=== PATIENT | male | born 1950 | race Caucasian/White ===

== ENCOUNTER → 2017-09-17 | Outpatient (CLI) | payer OTHER ==
[~2017-09-17] VITALS: Ht 190.5 cm; Wt 149.8 kg
[2017-09-17 15:12] VITALS: BP 162/75; PULSE 99; Ht 190.5 cm; Wt 149.8 kg
== END | disposition home or self-care (01) ==
LOC: C.NEUR 13:46
PROVIDERS: ATTEND Physician Assistant
DX: G47.33 Obstructive sleep apnea (adult) (pediatric) (principal); K21.9 Gastro-esophageal reflux disease without esophagitis

== ENCOUNTER 2024-04-07 11:00 | Inpatient (IN) ==
--- NOTE | 2024-04-07 11:48 | Emergency Department Note ---
Impression & Plan Cholecystitis, acute, Bacteremia, COVID-19 ED Provider Note NAME: LESLI SORIANO AGE: 73 SEX: M : 1950 ARRIVES VIA: Walk-In INFORMANT: Patient, ED PROVIDER(S): David Patel DO CHIEF COMPLAINT: Bacteremia HPI: The patient is a 73-year-old male who presented to the emergency department because of positive blood cultures. Apparently the patient has been having problems with his gallbladder. His most recent episode of gallbladder pain occurred Thursday. He was seen at [facility]. At that time he had a workup and was able to be sent home. He was called today because his blood cultures were positive but he was told to come to [facility] because they do not have the availability to care for his gallbladder issue at [place]. The patient has been having problems with his gallbladder but they are not able to do any surgical management because of the patient's cardiac history. He does take blood thinners. At this time he denies having any chest pain or difficulty breathing. He denies having any abdominal pain or vomiting. ROS: See above HPI for pertinent positives & negatives. A total of 10 systems reviewed and were otherwise negative. PAST MEDICAL HISTORY: See Below PAST SURGICAL HISTORY: See Below FAMILY HISTORY: See Below SOCIAL HISTORY: See Below HOME MEDICATIONS: See Below ALLERGIES: See Below VITALS: See Below PHYSICAL EXAMINATION: GENERAL: Patient is awake alert in no acute distress patient is resting comfortably and showing no signs of anxiety EYES: The conjunctivae are clear. The pupils are round and reactive. EARS, NOSE, MOUTH AND THROAT: The nose is without any evidence of any deformity. NECK: The neck is nontender and supple. RESPIRATORY: Normal respiratory effort is noted there is no evidence of wheezing rhonchi or rales CARDIOVASCULAR: Regular rate and rhythm was noted to auscultation. Systolic murmur was suggested to auscultation. GASTROINTESTINAL: The abdomen is soft. Abdomen is nontender. PELVIS: The Pelvis is stable. No tenderness to palpation is noted. BACK: No midline tenderness or or step-off noted range of motion in flexion extension as well as rotation no signs of muscle spasm noted MUSCULOSKELETAL/EXTREMITIES: There is no evidence of gross deformity full range of motion is noted in the hips and shoulders. SKIN: There is no obvious evidence of any rash. There are no petechiae, pallor or cyanosis noted. NEUROLOGIC: Patient is awake alert and oriented x3 MEDICAL DECISION MAKING: The patient is a 73-year-old male who presented to the emergency department for evaluation of bacteremia. The patient has had gallbladder problems over the course of the last several weeks. He was seen at an outside emergency department. They had no surgical capabilities. The patient signed out AMA and went home but he was called today and told to come to our emergency department because we have surgical capabilities and he was found to be bacteremic on his workup yesterday. There was concern that this could be from his gallbladder. The blood cultures from his previous ER visit at the outside facility were reviewed. It appears to be consistent with E. coli. He did have a CT of the abdomen and pelvis which showed signs of possible cholecystitis. I discussed the patient's laboratory and radiographic studies with him. I discussed his condition with the on-call general surgeon [facility] have agreed to evaluate the patient in the emergency department for further management and disposition. He was treated with IV fluids and IV antibiotics. Triage Nursing notes reviewed. Prior medical records reviewed Vital Signs: reviewed and remarkable for no significant abnormalities Differential diagnosis: Viral syndrome, otitis, pharyngitis, pneumonia, influenza, meningitis, urinary tract infection, sepsis, bacteremia, as well as other pathologies. ER treatment provided: See below Diagnostics interpreted by me: ECG: EKG was obtained in the emergency department. My interpretation is sinus bradycardia at 49 bpm. There is no ectopy. LVH was suggested by voltage criteria. No previous tracing was available Cardiac Monitoring: An order was placed for continuous cardiac monitoring. The monitor shows a rate of 56 bpm with sinus rhythm. Laboratory studies: As stated above and show below. Imaging studies: See below. Radiographic imaging was reviewed by myself Consultation(s): I discussed this case with Dr. Clement who is on-call for general surgery. I discussed this case with Dr. Lindsay who [facility] ED COURSE: Procedures: none Critical Care: I have personally spent greater than 35 minutes of critical care time in the direct management of this patient. This includes bedside care, interpretation of diagnostic studies, and testing, discussion with consultants, patient, and family members, and other required patient management activities. This 35 minutes is in excess of all separately billable procedures. Past Med/Surg History Problem List (Updated 04/07/24 @ 13:49 by Mark Esteves MD) CKD (chronic kidney disease) CAD (coronary artery disease) COVID-19 (Acute) Bacteremia (Acute) Cholecystitis, acute (Acute) Hypertension Aortic valve disorder Mitral valve disorder Diverticula of colon GERD (gastroesophageal reflux disease) Sleep apnea Drug-induced hypersensitivity reaction Nocturnal hypoxemia Acute kidney injury Hypothyroidism Atrial fibrillation Severe obstructive sleep apnea Chronic gastroesophageal reflux disease Acquired deviated nasal septum (Acute) Obesity (Acute) Medical History (Updated 04/07/24 @ 13:49 by Mark Esteves MD) Peripheral neuropathy Restless leg syndrome Diverticulosis Urethral stricture Herpes zoster Sternal fracture Surgical History Hx of tricuspid valve repair (~2019) Hx of mitral valve repair (~2019) Hx of aortic valve replacement (~2019) History of colonoscopy Family History Other Cancer Social History Smoking Status: Current some day smoker Tobacco Type: Pipe Hx Alcohol Use: Yes marital status: Current Living Situation: Spouse current occupational status: retired Feels Safe at Home: Yes Allergies Allergies Allergy/AdvReac Type Severity Reaction Status Date / Time Penicillins Allergy unk Verified 04/07/24 13:19 Anesthesia AdvReac coma Uncoded 04/07/24 13:20 Home Meds Home Medications Medication Instructions Recorded Confirmed Zinc Tab 1 tab PO DAILY 04/07/24 04/07/24 amiodarone 200 mg tablet 200 mg PO 3XWK 04/07/24 04/07/24 apixaban 5 mg tablet (Eliquis) 5 mg PO BID 04/07/24 04/07/24 ascorbic acid (vitamin C) 1,000 mg 1 g PO DAILY 04/07/24 04/07/24 tablet (Vitamin C) aspirin 81 mg tablet,delayed 81 mg PO QPM 04/07/24 04/07/24 release cholecalciferol (vitamin D3) 50 100 mcg PO DAILY 04/07/24 04/07/24 mcg (2,000 unit) capsule (Vitamin D3) ferrous sulfate 324 mg (65 mg 0 mg PO 2XWK 04/07/24 04/07/24 iron) tablet,delayed release metoprolol tartrate 25 mg tablet 25 mg PO BID 04/07/24 04/07/24 multivitamin 1 tab PO DAILY 04/07/24 04/07/24 Results & Data (ED) Vital Signs Vital Signs - 24 hr 04/07/24 11:11 04/07/24 11:31 04/07/24 11:42 Temperature 36.5 C Temperature Source Temporal Artery Scan Pulse Rate 49 L 50 L 49 L Pulse Rate [Left Apical] Respiratory Rate 18 20 Respiratory Effort / Characteristics Non-Labored Spontaneous Respiratory Depth Normal Respiratory Pattern Blood Pressure 104/52 L Blood Pressure [Right Arm] Blood Pressure Mean 69 Blood Pressure Mean [Right Arm] Blood Pressure Position Sitting Pulse Oximetry 97 98 Oxygen Delivery Method Room Air Room Air Sepsis Recent Fever Within 48 Hours No Sepsis New/Unexplained Change in Mental Status N/A Sepsis Action Taken by Nursing No Action Required 04/07/24 11:43 04/07/24 12:00 04/07/24 12:03 Temperature Temperature Source Pulse Rate 50 L Pulse Rate [Left Apical] 49 L Respiratory Rate 18 17 Respiratory Effort / Characteristics Non-Labored Spontaneous Respiratory Depth Normal Respiratory Pattern Regular Blood Pressure 115/58 L Blood Pressure [Right Arm] 117/58 L Blood Pressure Mean 86 Blood Pressure Mean [Right Arm] 77 Blood Pressure Position Pulse Oximetry 98 99 Oxygen Delivery Method Room Air Room Air Sepsis Recent Fever Within 48 Hours Sepsis New/Unexplained Change in Mental Status Sepsis Action Taken by Nursing 04/07/24 13:18 04/07/24 13:21 04/07/24 13:24 Temperature Temperature Source Pulse Rate 59 L 56 L Pulse Rate [Left Apical] Respiratory Rate 16 19 Respiratory Effort / Characteristics Respiratory Depth Respiratory Pattern Blood Pressure 137/72 Blood Pressure [Right Arm] Blood Pressure Mean 87 Blood Pressure Mean [Right Arm] Blood Pressure Position Pulse Oximetry 98 Oxygen Delivery Method Room Air Sepsis Recent Fever Within 48 Hours Sepsis New/Unexplained Change in Mental Status Sepsis Action Taken by Nursing 04/07/24 14:00 04/07/24 14:00 04/07/24 14:12 Temperature Temperature Source Pulse Rate 54 L 55 L Pulse Rate [Left Apical] Respiratory Rate 16 12 Respiratory Effort / Characteristics Respiratory Depth Respiratory Pattern Blood Pressure 143/85 H Blood Pressure [Right Arm] Blood Pressure Mean 107 Blood Pressure Mean [Right Arm] Blood Pressure Position Pulse Oximetry Oxygen Delivery Method Sepsis Recent Fever Within 48 Hours Sepsis New/Unexplained Change in Mental Status Sepsis Action Taken by Nursing 04/07/24 14:21 04/07/24 14:30 04/07/24 14:33 Temperature Temperature Source Pulse Rate 61 54 L Pulse Rate [Left Apical] Respiratory Rate 23 18 Respiratory Effort / Characteristics Respiratory Depth Respiratory Pattern Blood Pressure 148/70 H Blood Pressure [Right Arm] Blood Pressure Mean 101 Blood Pressure Mean [Right Arm] Blood Pressure Position Pulse Oximetry Oxygen Delivery Method Sepsis Recent Fever Within 48 Hours Sepsis New/Unexplained Change in Mental Status Sepsis Action Taken by Nursing 04/07/24 14:45 04/07/24 14:54 04/07/24 15:00 Temperature Temperature Source Pulse Rate 54 L 55 L Pulse Rate [Left Apical] Respiratory Rate 13 14 Respiratory Effort / Characteristics Respiratory Depth Respiratory Pattern Blood Pressure 140/72 Blood Pressure [Right Arm] Blood Pressure Mean 106 Blood Pressure Mean [Right Arm] Blood Pressure Position Pulse Oximetry Oxygen Delivery Method Sepsis Recent Fever Within 48 Hours Sepsis New/Unexplained Change in Mental Status Sepsis Action Taken by Nursing 04/07/24 15:03 Temperature Temperature Source Pulse Rate 56 L Pulse Rate [Left Apical] Respiratory Rate 18 Respiratory Effort / Characteristics Respiratory Depth Respiratory Pattern Blood Pressure Blood Pressure [Right Arm] Blood Pressure Mean Blood Pressure Mean [Right Arm] Blood Pressure Position Pulse Oximetry Oxygen Delivery Method Sepsis Recent Fever Within 48 Hours Sepsis New/Unexplained Change in Mental Status Sepsis Action Taken by Retirement Medications Current Medication List: was personally reviewed by me Laboratory Data Attestation: I reviewed the patient's lab results. 04/07/24 11:36 04/07/24 11:36 Lab Results 04/07/24 04/07/24 04/07/24 Range/Units 11:36 11:42 12:29 WBC 11.47 H (4.8-10.8) K/ul RBC 4.29 L (4.70-6.10) M/uL Hgb 13.3 L (14.0-18.0) g/dl Hct 40.0 L (42.0-52.0) % MCV 93.2 (80.0-100.0) fL MCH 31.0 (25.0-34.0) pg MCHC 33.3 (32.0-36.0) g/dL RDW Std Deviation 47.7 H (36.4-46.3) fL RDW Coeff of Kaylie 14.0 (11.5-14.5) % Plt Count 143 (130-400) K/uL MPV 10.0 (9.4-12.4) fL Immature Gran % (Auto) 0.6 % Neut % (Auto) 74.9 % Lymph % (Auto) 8.3 % [place] % (Auto) 15.8 % Eos % (Auto) 0.1 % Baso % (Auto) 0.3 % Neut # (Auto) 8.59 H (1.40-6.50) K/uL Lymph # (Auto) 0.95 L (1.20-3.40) K/uL [place] # (Auto) 1.81 H (0.11-0.59) K/uL Eos # (Auto) 0.01 (0.00-0.50) K/uL Baso # (Auto) 0.04 (0.00-0.20) K/uL Immature Gran # (Auto) 0.07 (0.01-0.20) K/uL PT 13.4 H (9.0-12.0) Seconds INR 1.3 H (0.9-1.1) APTT 36 H (21-31) Seconds PTT Ratio 1.3 Sodium 132 L (136-145) mmol/L Potassium 3.9 (3.5-5.1) mmol/L Chloride 101 (98-107) mmol/L Carbon Dioxide 26 (21-32) mmol/L Anion Gap 5 (3-11) BUN 23 (6-23) mg/dl Creatinine 1.28 (0.6-1.4) mg/dl Est Cr Clr Drug Dosing 67.9 ml/min Est GFR ( Amer) 64.4 ml/min Est GFR (Non-Af Amer) 55.5 ml/min BUN/Creatinine Ratio 18.0 (10-20) Glucose 95 (70-99(Fasting)) mg/dl Lactate 1.0 (0.4-2.0) mmol/L Calcium 8.8 (8.6-10.3) mg/dl Magnesium 1.9 (1.7-2.4) mg/dl Total Bilirubin 1.0 (0.2-1.0) mg/dl Direct Bilirubin 0.3 H (0-0.2) mg/dl AST 34 (13-39) U/L ALT 34 (7-52) U/L Alkaline Phosphatase 108 H (34-104) U/L Troponin I High Sens 40.5 H (0-20) pg/ml Total Protein 6.0 (6.0-8.3) gm/dl Albumin 3.8 (3.4-5.0) gm/dl Procalcitonin 6.34 H (0-0.5) ng/ml Urine Color Dark Yellow Urine Appearance Clear (Clear) Urine pH 5.5 (4.5-7.5) Ur Specific [place] 1.019 (1.000-1.030) Urine Protein Negative (Negative) Urine Glucose (UA) Negative (Negative) Urine Ketones Trace H (Negative) Urine Blood Negative (Negative) Urine Nitrite Negative (Negative) Urine Bilirubin Negative (Negative) Urine Urobilinogen Negative (Negative) Ur Leukocyte Esterase Negative (Negative) SARS-CoV-2 (PCR) POSITIVE (Negative) Influenza Type A (PCR) Negative (Neg) Influenza Type B (PCR) Negative (Neg) RSV (RT-PCR) Negative (Neg) 04/07/24 Range/Units 13:34 WBC (4.8-10.8) K/ul RBC (4.70-6.10) M/uL Hgb (14.0-18.0) g/dl Hct (42.0-52.0) % MCV (80.0-100.0) fL MCH (25.0-34.0) pg MCHC (32.0-36.0) g/dL RDW Std Deviation (36.4-46.3) fL RDW Coeff of Kaylie (11.5-14.5) % Plt Count (130-400) K/uL MPV (9.4-12.4) fL Immature Gran % (Auto) % Neut % (Auto) % Lymph % (Auto) % [place] % (Auto) % Eos % (Auto) % Baso % (Auto) % Neut # (Auto) (1.40-6.50) K/uL Lymph # (Auto) (1.20-3.40) K/uL [place] # (Auto) (0.11-0.59) K/uL Eos # (Auto) (0.00-0.50) K/uL Baso # (Auto) (0.00-0.20) K/uL Immature Gran # (Auto) (0.01-0.20) K/uL PT (9.0-12.0) Seconds INR (0.9-1.1) APTT (21-31) Seconds PTT Ratio Sodium (136-145) mmol/L Potassium (3.5-5.1) mmol/L Chloride (98-107) mmol/L Carbon Dioxide (21-32) mmol/L Anion Gap (3-11) BUN (6-23) mg/dl Creatinine (0.6-1.4) mg/dl Est Cr Clr Drug Dosing ml/min Est GFR ( Amer) ml/min Est GFR (Non-Af Amer) ml/min BUN/Creatinine Ratio (10-20) Glucose (70-99(Fasting)) mg/dl Lactate (0.4-2.0) mmol/L Calcium (8.6-10.3) mg/dl Magnesium (1.7-2.4) mg/dl Total Bilirubin (0.2-1.0) mg/dl Direct Bilirubin (0-0.2) mg/dl AST (13-39) U/L ALT (7-52) U/L Alkaline Phosphatase (34-104) U/L Troponin I High Sens 34.0 H (0-20) pg/ml Total Protein (6.0-8.3) gm/dl Albumin (3.4-5.0) gm/dl Procalcitonin (0-0.5) ng/ml Urine Color Urine Appearance (Clear) Urine pH (4.5-7.5) Ur Specific [place] (1.000-1.030) Urine Protein (Negative) Urine Glucose (UA) (Negative) Urine Ketones (Negative) Urine Blood (Negative) Urine Nitrite (Negative) Urine Bilirubin (Negative) Urine Urobilinogen (Negative) Ur Leukocyte Esterase (Negative) SARS-CoV-2 (PCR) (Negative) Influenza Type A (PCR) (Neg) Influenza Type B (PCR) (Neg) RSV (RT-PCR) (Neg) Administered Medications Discontinued Medications Sodium Chloride (Nss) 1,000 mls @ 999 mls/hr IV .Q1H1M ONE Stop: 04/07/24 12:29 Last Infusion: 04/07/24 12:37 Dose: Infused Documented By: [facility] Admin: 04/07/24 11:56 Dose: 999 mls/hr Documented By: [facility] Cefepime HCl 2,000 mg/ Syringe 20 mls @ 5 mls/min IV NOW STA; Protocol Stop: 04/07/24 13:22 Last Admin: 04/07/24 13:36 Dose: 5 mls/min Documented By: [facility] Sodium Chloride (Nss) 1,000 mls @ 999 mls/hr IV .Q1H1M ONE Stop: 04/07/24 14:31 Last Admin: 04/07/24 13:37 Dose: 999 mls/hr Documented By: [facility] Imaging Data Attestation: I personally reviewed and interpreted this imaging study as follows: My Impression: 1 view chest x-ray was obtained in the emergency department. My interpretation is no free air or definite infiltrate, final report below Radiologist's Impression: Chest X-Ray 04/07/24 11:29 XR chest 1V portable CLINICAL HISTORY: Sepsis TECHNIQUE: Single frontal radiograph of the chest was obtained. Comparison: None available at the time of this dictation. FINDINGS: Median sternotomy wires are unchanged. The cardiomediastinal silhouette is normal. The lungs are clear. No evidence of pleural effusion or pneumothorax. IMPRESSION: No acute abnormalities and in particular no radiographic evidence of pneumonia. ACT 112: Negative or not required by law. Electronically signed by: Noel Hickey M.D. 04/07/2024 1:20 PM Gallbladder Ultrasound 04/07/24 11:29 US gallbladder CLINICAL HISTORY: pain TECHNIQUE: Multiple real-time sonographic images of the right upper quadrant were obtained. Comparison: None available at the time of this dictation. FINDINGS: The liver is diffusely homogenous with normal contour and echogenicity. No focal mass lesions are seen. No intrahepatic ductal dilatation is seen. Gallbladder sludge versus stones are seen. The gallbladder wall is edematous measuring 1.1 cm. A sonographic Mattson's sign was not elicited by the client renewal specialist. The common duct measures 0.7 cm in diameter at the level of the hepatic artery. The visualized portions of the pancreas appear normal. The right kidney shows normal echogenicity, cortical thickness and renal contour. The right kidney shows no evidence of hydronephrosis. A cyst is in the lower pole measuring 5 mm. No ascites or free fluid is seen in Guadalupe's pouch. IMPRESSION: Gallbladder edema is seen with a negative Mattson's sign. Correlation with patient's pain medication history is recommended. ACT 112: Negative or not required by law. Electronically signed by: Noel Hickey M.D. 04/07/2024 1:20 PM KUB X-Ray 04/07/24 11:29 XR KUB/Abdomen 1 view CLINICAL HISTORY: pain TECHNIQUE: 1 view of the abdomen was obtained. Comparison: None available at the time of this dictation. FINDINGS: Lung bases are unremarkable. Degenerative changes are seen in the visualized skeleton. The bowel gas pattern is nonobstructive. Small stool burden is seen. IMPRESSION: Nonobstructive bowel gas pattern. ACT 112: Negative or not required by law. Electronically signed by: Noel Hickey M.D. 04/07/2024 1:26 PM Discharge Plan Visit Data Chief Complaint: Referred by Doctor Stated Complaint: GALLBLADDER ISSUES, COVID+ , POSITIVE BLOOD CX ED Provider: David Patel Discharge Problem: Cholecystitis, acute, Bacteremia, COVID-19 Forms Stand Alone Forms: [facility] [employer] Prescriptions Prescriptions: No Action multivitamin Tablet 1 tab PO DAILY ascorbic acid (vitamin C) [Vitamin C] 1,000 mg Tablet 1 g PO DAILY amiodarone 200 mg tablet 200 mg PO 3XWK Rx Instructions: Take mon, wed, fri aspirin [Aspir-Low] 81 mg Tablet,Delayed Release (Dr/Ec) 81 mg PO QPM metoprolol tartrate 25 mg tablet 25 mg PO BID ferrous sulfate 324 mg (65 mg iron) Tablet,Delayed Release (Dr/Ec) 0 mg PO 2XWK Rx Instructions: Take wed, thu cholecalciferol (vitamin D3) [Vitamin D3] 50 mcg (2,000 unit) Capsule 100 mcg PO DAILY Eliquis 5 mg tablet 5 mg PO BID Zinc Tab 1 tab PO DAILY Referrals Referrals: Bruce Herrera DO [Primary Care Provider] -
[2024-04-07] MEDS: SODIUM CHLORIDE 0.9% 1,000 ML IV ONE ×2 (11:56→13:37)
[2024-04-07 12:14] LABS: Basophils # (auto) 0.04 K/uL (0.00-0.20); Basophils % (auto) 0.3 %; Eosinophils # (auto) 0.01 K/uL (0.00-0.50); Eosinophils % (auto) 0.1 %; Hemoglobin 13.3 g/dl (14.0-18.0); Immature Granulocytes # (auto) 0.07 K/uL (0.01-0.20); Immature Granulocytes % (auto) 0.6 %; Lymphocytes # (auto) 0.95 K/uL (1.20-3.40); Lymphocytes % (auto) 8.3 %; Mean Corpuscular Hgb Conc 33.3 g/dL (32.0-36.0); Mean Corpuscular Volume 93.2 fL (80.0-100.0); Monocytes # (auto) 1.81 K/uL (0.11-0.59); Monocytes % (auto) 15.8 %; Neutrophils # (auto) 8.59 K/uL (1.40-6.50); Neutrophils % (auto) 74.9 %; Platelet Count 143 K/uL (130-400); RDW Standard Deviation 47.7 fL (36.4-46.3); Red Blood Count 4.29 M/uL (4.70-6.10); White Blood Count 11.47 K/ul (4.8-10.8)
[2024-04-07 12:47] LABS: Albumin Level 3.8 gm/dl (3.4-5.0); Bilirubin Direct 0.3 mg/dl (0-0.2); Calcium 8.8 mg/dl (8.6-10.3); Creatinine Clr Calc Pharmacy 67.9 ml/min; Est GFR (African American) 64.4 ml/min; Est GFR (Non-African American) 55.5 ml/min; Magnesium 1.9 mg/dl (1.7-2.4); Potassium 3.9 mmol/L (3.5-5.1)
[2024-04-07 12:50] LABS: Appearance Urine Clear (Clear); Bilirubin Urine Negative (Negative); Blood Urine Negative (Negative); Color Urine Dark Yellow; Glucose Urine UA Negative (Negative); Ketones Urine Trace (Negative); Leukocyte Esterase Urine Negative (Negative); Nitrite Urine Negative (Negative); Protein Urine Negative (Negative); Specific Gravity Urine 1.019 (1.000-1.030); Urobilinogen Urine Negative (Negative); pH Urine 5.5 (4.5-7.5)
[2024-04-07 12:54] LABS: Troponin I High Sensitivity 40.5 pg/ml (0-20)
[2024-04-07 12:59] LABS: INR 1.3 (0.9-1.1); Partial Thromboplastin Ratio 1.3; Partial Thromboplastin Time 36 Seconds (21-31); Prothrombin Time 13.4 Seconds (9.0-12.0)
[2024-04-07 13:02] LABS: Influenza A virus by PCR Negative (Neg); Influenza B virus by PCR Negative (Neg); RSV by PCR Negative (Neg); SARS CoV2 RNA(COVID-19) Ceph POSITIVE (Negative)
--- NOTE | 2024-04-07 13:22 | XRay Report ---
XR chest 1V portable CLINICAL HISTORY: Sepsis TECHNIQUE: Single frontal radiograph of the chest was obtained. Comparison: None available at the time of this dictation. FINDINGS: Median sternotomy wires are unchanged. The cardiomediastinal silhouette is normal. The lungs are guillermina r. No evidence of pleural effusion or pneumothorax. IMPRESSION: No acute abnormalities and in particular no radiographic evidence of pneumonia. ACT 112: Negative or not required by law. Electronically signed by: Noel Hickey M.D. 04/07/2024 1:20 PM
--- NOTE | 2024-04-07 13:22 | Ultrasound Report ---
US gallbladder CLINICAL HISTORY: pain TECHNIQUE: Multiple real-time sonographic images of the right upper quadrant were obtained. Comparison: None available at the time of this dictation. FINDINGS: The liver is diffusely homogenous with normal contour and echogenicity. No focal mass lesions are see n. No intrahepatic ductal dilatation is seen. Gallbladder sludge versus stones are seen. The gall bladder wall is edematous measuring 1.1 cm. A sonographic Mattson's sign was not elicited by the sonog rapher. The common duct measures 0.7 cm in diameter at the level of the hepatic artery. The visuali zed portions of the pancreas appear normal. The right kidney shows normal echogenicity, cortical thickness and renal contour. The right kidney sh ows no evidence of hydronephrosis. A cyst is in the lower pole measuring 5 mm. No ascites or free fluid is seen in Guadalupe's pouch. IMPRESSION: Gallbladder edema is seen with a negative Mattson's sign. Correlation with patient's pain medication h istory is recommended. ACT 112: Negative or not required by law. Electronically signed by: Noel Hickey M.D. 04/07/2024 1:20 PM
--- NOTE | 2024-04-07 13:29 | XRay Report ---
XR KUB/Abdomen 1 view CLINICAL HISTORY: pain TECHNIQUE: 1 view of the abdomen was obtained. Comparison: None available at the time of this dictation. FINDINGS: Lung bases are unremarkable. Degenerative changes are seen in the visualized skeleton. The bowel gas pattern is nonobstructive. Small stool burden is seen. IMPRESSION: Nonobstructive bowel gas pattern. ACT 112: Negative or not required by law. Electronically signed by: Noel Hickey M.D. 04/07/2024 1:26 PM
[2024-04-07] MEDS: CEFEPIME 2,000 MG in SYRINGE 0 ML IV STA (13:36)
--- NOTE | 2024-04-07 13:47 | History & Physical Report ---
Date of Service April 07, 2024 Assessment & Plan (1) Cholecystitis, acute: Plan: ? Cholecystitis with bacteremia US-Gallbladder: Bladder edema present with negative Mattson sign Has been seen as outpatient several times for suspected cholecystitis, last seen by [facility] 02/22/2024 and follow-up HIDA was recommended. Surgery was not performed due to history of anesthesia reaction and risk at that time Was seen at [facility] for right upper quadrant pain. Was discharged home, subsequent blood cultures were positive and was recommended to come to [facility] where he was pending surgical consultation several weeks for further care as to high surgical risk for [facility] due to his history of anesthesia reaction Patient reports he has not been on any antibiotics in the previous few weeks, received a dose of cefepime at [facility] but otherwise has not been on antibiotics KUB unobstructed CTA/P from 04/06/2024 at [facility] reviewed: Cholelithiasis with moderate gallbladder distention. OSH 3/4 blood cultures positive for gram-negative rods. While at OSH lactate went from 2.63.6, patient did leave A and general surgery was not available at that facility for consultation. He received cefepime/Flagyl/vancomycin while in the ER at that time. HIDA scan 03/23 showed biliary dyskinesia with EF of 12%. Anaerobic bottles subsequently speciated for E. coli with sensitivities and remaining bottle speciations pending Lactic acid on ER arrival 1.0 -PCT elevated 6.34 Surgery consulted. Anesthesia notified of history of reaction as detailed below Continued on cefepime Flagyl N.p.o. IV FM LR 120 cc/h. No history of heart failure, no evidence of volume overload on admission Eliquis A-fib stroke prophylaxis held, transition to heparin while pending surgical eval. Hold 6hrs prior to any procedures. (2) COVID-19: Plan: COVID-positive COVID PCR positive Chest x-ray negative No hypoxia Remdesivir, steroids not indicated Symptomatic management, COVID isolation precautions CRP added and trended (3) Drug-induced hypersensitivity reaction: Plan: History of anesthetic reaction Patient with hypotensive episode not responsive to norepinephrine followed by development of erythema to the arm/chest/face after infusion of Versed, fentanyl, lidocaine, propofol, rocuronium, and isoflurane. Patient had been ordered vancomycin but this had not yet been infused at the time. He was treated with epinephrine, vasopressin, hydrocortisone, Benadryl, Pepcid with subsequent improvement over 10-20 minutes, tryptase level drawn at the time was elevated at 13.9. Followed up with allergy 07/2023. Skin testing to rocuronium/lidocaine/propofol/fentanyl/Versed were negative. No culprit drug was identified. Was recommended to select alternative anesthetic agents to what he had received during his surgery. Cisatracurium with lowest cross-reactivity and recommended for use over rocuronium if possible. No clear good alternative for other medications, 10% challenge dose followed by full dose in OR if could be performed. Lidocaine allergy ruled out, okay to use local anesthetics as needed. -Unclear from history what other medications patient was receiving at the time or that may have triggered his allergic reaction. (4) Atrial fibrillation: Plan: Paroxysmal A-fib On amiodarone, Eliquis, metoprolol Eliquis held, transition to heparin perioperatively for prophylaxis when next dose of Eliquis would have been due at 9 PM EKG: Reported as junctional however very low amplitude? P waves with consistent MA appreciated, suspect sinus. Appropriate chronotropic response at bedside. No evidence of RVR Continue amiodarone 200 mg daily, metoprolol 25 mg daily (5) CAD (coronary artery disease): Plan: Hx valve replacements, elevated trop High sensitive troponin 40.5, repeat downtrending, no ischemic changes on EKG Patient uses an exercise bike, rope, bike, weight lifts, and does cardio 3 maria fernanda es a week and with vigorous exercise has had no chest pain or chest pressure. Has some dyspnea which feels appropriate to his level of exercise, notes due to some tracheal narrowing after his intubation he does have a little bit of wheezing with very vigorous exercise but which is not significantly limiting and has not changed in the previous few years. Heart surgery in 2020 was for 3x bad valves. Real Estate Representative is Dr. Justin Sood. - Aortic 27mm Tissue Heart Valve [id number] serial No [id number], MR Conditional 3T of less, spatial gradient field less than 3000 gauss/cm, max KUSHAL 2.0 W/kg - Mitral 34mm Annuloplasty band Model 4600, Serial [id number] - Tricuspid implant Tri-Ad 2.0 Greer valave replacemnet Serial [id number], Model [id number] MR Conditional. - Valve replaced by Dr. Dylan Panda MD [phone] at [facility] Denies history of ischemic heart disease, denies history of heart failure Echo pending (6) CKD (chronic kidney disease): Plan: History of CKD Baseline creatinine 1.21.6 Creatinine 1.28 on admission Estimated creatinine clearance greater than 60 BMP daily, renally adjust medications as needed Plan Chronic stable issues Severe DANIEL: CPAP nightly DVT prophylaxis: Eliquis transition to heparin pending surgical evaluation CODE STATUS: Full code Diet: N.p.o. Disposition: Medical telemetry History of Present Illness Primary Care Provider: Bruce Herrera DO Mika is a 73-year-old male with past medical history of A-fib on metoprolol/amiodarone/warfarin aortic stenosis, obesity, GERD, sleep apnea, anaphylactic reaction to local anesthetics with subsequent skin testing to rocuronium/lidocaine/propofol/Versed/fentanyl which was negative as outpatient, CKD with baseline creatinine 1.21.6 who was seen at [facility] this past week for right upper quadrant pain thought to be due to his gallbladder. Patient was discharged home however was instructed to go to the hospital due to positive blood cultures suspected of biliary origin. Patient was instructed to go to [facility] rather than [facility] as their facility was not able to perform surgical management due to his cardiac history. Ultrasound: Gallbladder edema with negative Mattson sign Chest x-ray: No acute finding Leukocytosis, T. bili 0.3, no AST/ALT elevation, alk phos 108 At bedtimetroponin 40.5, repeat pending EKG: Sinus. Reported as junctional however low amplitude P waves with consistent MA are appreciated. No ST segment elevations or T wave inversion [facility] note review: Seen 02/22/2024. Seen posthospitalization for acute cholecystitis. Surgery not performed due to anesthesia risk and history of allergic reaction. At that time was recommended to follow-up for HIDA, with additional CT/ultrasound follow-up depending on this. Mika is seen at the bedside with his at bedside Reports he has had 4 'gallbladder attacks' in the last few weeks lasting 20-30 minutes Went to [facility] yesterday due to RUQ pain after meals. No pain at time of assessment FEver/chills/sweats sweats yesterday mild cough with dark yellow sputum production x24 hours No nausea/vomiting. No diarrhea/constipation. Dark stool with iron, no melena/bleeding Meals do cause his RUQ pain to increase/worsen, has happened 4x in the last month. Always with fatty food. No pain at time of admission. First time [facility] was seen was early March of this past year. Initially was going to take the gallbladder out; however, he had heart surgery in Nov 2019 and had a severe reaction to anesthesia with 2 weeks of coma subsequently. He was referred to Dr. Stoner for surgical evaluation, but that was pending for April 26. He went ot [facility] yesterday due to pain. Also has a restricted/narrow airway related to prolonged intubation during his heart proceder Heart surgery in 2019 was for 3x bad valves. Real Estate Representative is Dr. Justin Sood. - Aortic 27mm Tissue Heart Valve [id number] serial No [id number], MR Conditional 3T of less, spatial gradient field less than 3000 gauss/cm, max KUSHAL 2.0 W/kg - Mitral 34mm Annuloplasty band Model 4600, Serial [id number] -= Tricuspid implant Tri-Ad 2.0 Greer valave replacemnet Serial [id number], Model [id number] MR Conditional. - Valve replaced by Dr. Dylan Panda MD [phone] at [facility] No history of heart attacks. Had a heart cath prior to valve replacement, reportedly normal No chest pain. Exercises 3x per week, rowing machine and walking and sometimes recumband bike and weight lifting. no chest pain or significant dyspnea. Has had more dyspnea going up inclines, but overall tolerates exercise well. Does note some wheezing with his restricted airway, this improved with intentional weight loss since 2019. Allergies: PCN childhood, complex anesthesia rxn with subsequent coma as noted Cigars and Pipe tobacco daily, 1x per day, x5 years. Declines nicotine patch Denies etoh use Denies recreational drug use Took all medications including eliquis this morning Code Status: Full Code Allergies Allergy/AdvReac Type Severity Reaction Status Date / Time Penicillins Allergy unk Verified 04/07/24 13:19 Anesthesia AdvReac coma Uncoded 04/07/24 13:20 Home Medications Medication Instructions Recorded Confirmed Type Zinc Tab 1 tab PO DAILY 04/07/24 04/07/24 History amiodarone 200 mg tablet 200 mg PO 3XWK 04/07/24 04/07/24 History apixaban 5 mg tablet (Eliquis) 5 mg PO BID 04/07/24 04/07/24 History ascorbic acid (vitamin C) 1,000 mg 1 g PO DAILY 04/07/24 04/07/24 History tablet (Vitamin C) aspirin 81 mg tablet,delayed 81 mg PO QPM 04/07/24 04/07/24 History release cholecalciferol (vitamin D3) 50 100 mcg PO DAILY 04/07/24 04/07/24 History mcg (2,000 unit) capsule (Vitamin D3) ferrous sulfate 324 mg (65 mg 0 mg PO 2XWK 04/07/24 04/07/24 History iron) tablet,delayed release metoprolol tartrate 25 mg tablet 25 mg PO BID 04/07/24 04/07/24 History multivitamin 1 tab PO DAILY 04/07/24 04/07/24 History Past Med/Surg History Problem List (Updated 04/07/24 @ 13:49 by Mark Esteves MD) CKD (chronic kidney disease) CAD (coronary artery disease) COVID-19 (Acute) Bacteremia (Acute) Cholecystitis, acute (Acute) Hypertension Aortic valve disorder Mitral valve disorder Diverticula of colon GERD (gastroesophageal reflux disease) Sleep apnea Drug-induced hypersensitivity reaction Nocturnal hypoxemia Acute kidney injury Hypothyroidism Atrial fibrillation Severe obstructive sleep apnea Chronic gastroesophageal reflux disease Acquired deviated nasal septum (Acute) Obesity (Acute) Medical History (Updated 04/07/24 @ 13:49 by Mark Esteves MD) Peripheral neuropathy Restless leg syndrome Diverticulosis Urethral stricture Herpes zoster Sternal fracture Surgical History Hx of tricuspid valve repair (~2020) Hx of mitral valve repair (~2020) Hx of aortic valve replacement (~2020) History of colonoscopy Family History Other Cancer Social History Smoking Status: Current some day smoker Tobacco Type: Pipe Hx Alcohol Use: Yes marital status: Current Living Situation: Spouse current occupational status: retired Feels Safe at Home: Yes Physical Exam Physical Exam: General: A&Ox3. NAD. Cooperative. HEENT: Atraumatic, normocephalic. Pupils equal and reactive to light. Vision and hearing grossly intact Pulm: CTAB A&P. -wheezes, -rales, -rhonchi. Symmetrical chest rise. No increased work of breathing. No respiratory distress. Cardiac: RRR, +sm. Radial pulses intact and symmetrical. Abdominal: NT/-murphys at time of exam Results & Data Results & Data Vital Signs (Past 12 Hours) Vital Signs Temp Pulse Pulse Resp BP BP Pulse Ox 04/07/24 13:21 56 L 19 04/07/24 13:18 59 L 16 98 04/07/24 12:03 50 L 17 99 04/07/24 12:00 115/58 L 04/07/24 11:43 49 L 18 117/58 L 98 04/07/24 11:42 49 L 20 98 04/07/24 11:31 50 L 04/07/24 11:11 36.5 C 49 L 18 104/52 L 97 O2 Del Method 04/07/24 13:21 04/07/24 13:18 Room Air 04/07/24 12:03 Room Air 04/07/24 12:00 04/07/24 11:43 Room Air 04/07/24 11:42 Room Air 04/07/24 11:31 04/07/24 11:11 Room Air PG Care Time/CCT Total # of Minutes Spent Total Time Spent with Patient: Total time spent is greater than 50% in coordination of care (as documented) at patient's floor/unit and/or counseling patient: Coding Level of Care Code 27614 INT INP/OBS CARE 375MIN Diagnoses Cholecystitis, acute K81.0 COVID-19 U07.1 Drug-induced hypersensitivity reaction T78.40XA Atrial fibrillation I48.91 CAD (coronary artery disease) I25.10 CKD (chronic kidney disease) N18.9
[2024-04-07] MEDS ORDERED: HYDROmorphone INJ 1 MG/ML SYRINGE IV PRN (14:32)
[2024-04-07] MEDS ORDERED: ACETAMINOPHEN 500 MG TAB PO PRN (14:39)
[2024-04-07] MEDS: metroNIDAZOLE 500 MG/100 ML BAG IV STA (15:33)
[2024-04-07] MEDS: LACTATED RINGER'S 1,000 ML IV SCH (15:33)
--- NOTE | 2024-04-07 15:51 | Anesthesiology Consultation ---
Date of Service April 07, 2024 Assessment & Plan Chart Review Chart Review: Acceptable Risk for Surgery and Patient NOT seen in Pre Admission Testing Consults Requested none ASA ASA4 Proposed Anesthesia Anesthesia Type: General History Height/Weight Height: 6 ft Weight: 113.7 kg Allergies Allergy/AdvReac Type Severity Reaction Status Date / Time Penicillins Allergy unk Verified 04/07/24 13:19 Anesthesia AdvReac coma Uncoded 04/07/24 13:20 Medications Home Medications Medication Instructions Recorded Confirmed Last Taken Zinc Tab 1 tab PO DAILY 04/07/24 04/07/24 Unknown amiodarone 200 mg tablet 200 mg PO 3XWK 04/07/24 04/07/24 04/06/24 apixaban 5 mg tablet (Eliquis) 5 mg PO BID 04/07/24 04/07/24 04/07/24 09:00 ascorbic acid (vitamin C) 1,000 mg 1 g PO DAILY 04/07/24 04/07/24 Unknown tablet (Vitamin C) aspirin 81 mg tablet,delayed 81 mg PO QPM 04/07/24 04/07/24 Unknown release cholecalciferol (vitamin D3) 50 100 mcg PO DAILY 04/07/24 04/07/24 Unknown mcg (2,000 unit) capsule (Vitamin D3) ferrous sulfate 324 mg (65 mg 0 mg PO 2XWK 04/07/24 04/07/24 Unknown iron) tablet,delayed release metoprolol tartrate 25 mg tablet 25 mg PO BID 04/07/24 04/07/24 Unknown multivitamin 1 tab PO DAILY 04/07/24 04/07/24 Unknown Active Medications Generic Name Dose Route Start Last Admin Trade Name Freq PRN Reason Stop Dose Admin Lactated Ringer's 1,000 mls @ 120 mls/hr 04/07/24 14:45 04/07/24 15:33 Lr IV 05/07/24 14:44 120 mls/hr .Q8H20M ESTEFANI Administration Past Medical History Medical History Peripheral neuropathy Restless leg syndrome Diverticulosis Urethral stricture Herpes zoster Sternal fracture S/P AV replacement;S/P MV repair w/ring;S/P TV repair w/ ring 2019 HTN HLD GERD DANIEL HYPOTHYROIDISM hx/o a fib obese active smoker Exercise / Class Metabolic Activity III < 4 Walking/Shop/Light housework Past Family History Family History Other Cancer Past Surgical History Surgical History Hx of tricuspid valve repair (~2019) Hx of mitral valve repair (~2019) Hx of aortic valve replacement (~2019) History of colonoscopy Past Anesthesia History No Hx of Anesthesia Complications and No Family Hx of Anesthesia Complications History of PONV No Hx of PONV and No Hx of Motion Sickness Social History Smoking Status: Current some day smoker Hx Alcohol Use: Yes Physical Exam Vital Signs Last Vital Signs Temp 36.5 C 04/07/24 11:11 Pulse 50 L 04/07/24 15:35 Resp 16 04/07/24 15:27 BP 146/83 H 04/07/24 15:30 Pulse Ox 98 04/07/24 13:18 O2 Del Method Room Air 04/07/24 13:18 Testing Laboratory Results 04/07/24 11:36 04/07/24 11:36 PT 13.4 Seconds (9.0-12.0) H 04/07/24 11:36 INR 1.3 (0.9-1.1) H 04/07/24 11:36 APTT 36 Seconds (21-31) H 04/07/24 11:36 Urine Color Dark Yellow 04/07/24 12:29 Urine Appearance Clear (Clear) 04/07/24 12:29 Urine pH 5.5 (4.5-7.5) 04/07/24 12:29 Ur Specific [place] 1.019 (1.000-1.030) 04/07/24 12:29 Urine Protein Negative (Negative) 04/07/24 12:29 Urine Glucose (UA) Negative (Negative) 04/07/24 12:29 Urine Ketones Trace (Negative) H 04/07/24 12:29 Urine Nitrite Negative (Negative) 04/07/24 12:29 Ur Leukocyte Esterase Negative (Negative) 04/07/24 12:29 Electrocardiogram Date: 04/07/24 Findings: + pertinent finding (Junctional rhythm @ 49) Chest X-Ray Date: 04/07/24 Findings: + NAD
--- NOTE | 2024-04-07 16:00 | Communication Note ---
Date of Service: April 07, 2024 Patient has multiple medical co-morbidities.He has had 3 cardiac valve repairs/replacements in one surgery in 2020. I would like a preop echo to interrogate his cardiac and valve function. It would be nice to obtain his precardiac surgery cath to review his coronary artery anatomy. Pt had anaphylactic reaction during heart surgery,is what I gather, and subsequently was tested by Cost Reduction Engineer and the so-called culprit drugs were negative.A Pt has a number of drugs during cardiac surgery and from my experience, and what I gather here, the culprits could be protamine sulfate,heparin,aminocaproic acid,transexamic acid,antibiotics and possibly blood and blood products.
[2024-04-07] MEDS: HEPARIN SODIUM/DEXTROSE 25,000 UNITS/500 ML BAG IV SCH (20:54)
[2024-04-07] MEDS ORDERED: Heparin IV Adult Wt-Based Low-Dose *NO* INITIAL Bolus Protocol IV SCH (21:00)
[2024-04-07] MEDS: CEFEPIME 2,000 MG in SYRINGE 0 ML IV SCH (21:01)
[2024-04-07] MEDS: METOPROLOL TARTRATE 25 MG TAB PO SCH (21:01)
[2024-04-07] MEDS: ASPIRIN 81 MG ECTAB PO SCH (22:33)
[2024-04-07] MEDS: metroNIDAZOLE 500 MG/100 ML BAG IV SCH (23:50)
[2024-04-08] MEDS: HYDROmorphone INJ 0.5 MG/0.5 ML SYR IV PRN (03:07)
[2024-04-08 03:12] LABS: Basophils # (auto) 0.02 K/uL (0.00-0.20); Basophils % (auto) 0.3 %; Eosinophils # (auto) 0.01 K/uL (0.00-0.50); Eosinophils % (auto) 0.2 %; Hematocrit (blood only) 37.3 % (42.0-52.0); Immature Granulocytes # (auto) 0.02 K/uL (0.01-0.20); Immature Granulocytes % (auto) 0.3 %; Lymphocytes # (auto) 1.15 K/uL (1.20-3.40); Mean Corpuscular Hgb Conc 34.9 g/dL (32.0-36.0); Mean Corpuscular Volume 91.9 fL (80.0-100.0); Mean Platelet Volume 9.7 fL (9.4-12.4); Monocytes # (auto) 1.22 K/uL (0.11-0.59); Monocytes % (auto) 19.1 %; Neutrophils # (auto) 3.97 K/uL (1.40-6.50); Neutrophils % (auto) 62.1 %; Platelet Count 137 K/uL (130-400); RDW Coefficient of Variation 13.9 % (11.5-14.5); RDW Standard Deviation 47.2 fL (36.4-46.3); Red Blood Count 4.06 M/uL (4.70-6.10); White Blood Count 6.39 K/ul (4.8-10.8)
[2024-04-08 03:29] LABS: Albumin Globulin Ratio 1.6 (0.9-2); Albumin Level 3.4 gm/dl (3.4-5.0); BUN Creatinine Ratio 15.7 (10-20); Calcium 8.5 mg/dl (8.6-10.3); Creatinine Clr Calc Pharmacy 87.5 ml/min; Est GFR (African American) 84.1 ml/min; Est GFR (Non-African American) 72.6 ml/min; Globulin 2.1 gm/dl (2.5-4.0); Potassium 4.1 mmol/L (3.5-5.1); Total Protein 5.5 gm/dl (6.0-8.3)
[2024-04-08 03:50] LABS: ANTI-Xa, UFH(UnfractionatedHep 1.26 IU/ml (0.3-0.7)
[2024-04-08] MEDS: KETOROLAC TROMETHAMINE 15 MG/ML VIAL IV PRN (04:07)
--- NOTE | 2024-04-08 07:01 | Electrocardiogram Report ---
Test Reason : Blood Pressure : / mmHG Vent. Rate : 049 BPM Atrial Rate : 000 BPM P-R Int : 240 ms QRS Dur : 114 ms QT Int : 550 ms P-R-T Axes : 000 -34 020 degrees QTc Int : 496 ms Sinus bradycardia with 1st degree A-V block Left axis deviation Cannot rule out Anterior infarct , age undetermined Abnormal ECG No previous ECGs available Confirmed by Chano Segovia ([id number]) on 04/08/2024 7:01:36 AM Referred By: Bruce Herrera Confirmed By:Chano Sgeovia
[2024-04-08] MEDS: ASCORBIC ACID 500 MG TAB PO SCH (08:28)
[2024-04-08] MEDS: CHOLECALCIFEROL 25 MCG (1000 UNITS) TAB PO SCH (08:28)
[2024-04-08] MEDS: AMIODARONE 200 MG TAB PO SCH (08:28)
--- NOTE | 2024-04-08 09:14 | Surgery Consultation ---
Date of Consultation April 08, 2024 Assessment & Plan (1) Bacteremia: His US images and results were personally viewed and interpreted by myself Will order a HIDA scan to see if he truly has acute cholecystitis as he has had on and off symptoms for 2 months Cardiology consult for operative risk, he also has COVID which complicates things and puts him at higher risk Plan would be to give IV ABX over the weekend, hold his Eliquis and see how he does No plans for any surgery over the weekend (2) Cholecystitis, acute: (3) CAD (coronary artery disease): (4) Atrial fibrillation: History of Present Illness Reason for Consultation: Cholecystitis Attending Physician: Bethany Rothman MD History of Present Illness This is a 74 yo male who was sent here from [place] due to positive blood cultures. He has been dealing well "gallbladder issues" for the last two months and has been following along with a surgeon in [place] for this. He never had a cholecystectomy due to his heart issues. He states he has had right sided abdominal pain 4 times over the last month with the last time being ThursdayApril 06 when he went to the [place] ER. He was sent home, but told to come to [facility] due to his positive blood cultures. He states he had some sharp, right sided abdominal pain last evening. No N/V. No alleviating or aggravating factors. Denies any previous abdominal surgeries. He takes Eliquis for his history of heart/valvular disease. He had open heart surgery in 2019 with a valve replacement as well 2 other valve repairs. He also has had an allergic reaction to anesthesia in the past. He was also found to have COVID yesterday. Allergies Allergy/AdvReac Type Severity Reaction Status Date / Time Penicillins Allergy unk Verified 04/07/24 13:19 Anesthesia AdvReac coma Uncoded 04/07/24 13:20 Home Medications Medication Instructions Recorded Confirmed Type Zinc Tab 1 tab PO DAILY 04/07/24 04/07/24 History amiodarone 200 mg tablet 200 mg PO 3XWK 04/07/24 04/07/24 History apixaban 5 mg tablet (Eliquis) 5 mg PO BID 04/07/24 04/07/24 History ascorbic acid (vitamin C) 1,000 mg 1 g PO DAILY 04/07/24 04/07/24 History tablet (Vitamin C) aspirin 81 mg tablet,delayed 81 mg PO QPM 04/07/24 04/07/24 History release cholecalciferol (vitamin D3) 50 100 mcg PO DAILY 04/07/24 04/07/24 History mcg (2,000 unit) capsule (Vitamin D3) ferrous sulfate 324 mg (65 mg 0 mg PO 2XWK 04/07/24 04/07/24 History iron) tablet,delayed release metoprolol tartrate 25 mg tablet 25 mg PO BID 04/07/24 04/07/24 History multivitamin 1 tab PO DAILY 04/07/24 04/07/24 History Patient History Medical History Peripheral neuropathy Restless leg syndrome Diverticulosis Urethral stricture Herpes zoster Sternal fracture Surgical History Hx of tricuspid valve repair (~2020) Hx of mitral valve repair (~2020) Hx of aortic valve replacement (~2020) History of colonoscopy Family History Other Cancer Social History Smoking Status: Current every day smoker Tobacco Type: Pipe Second Hand Exposure: No; Do You Dip or Chew Tobacco: No; Hx Alcohol Use: No Hx Substance Use: No Preferred Language: Kosovan Communication Ability: Effective Social Service Agency Director Required: No Beliefs That Will Affect Care: None marital status: Current Living Situation: Spouse current occupational status: retired Feels Safe at Home: Yes Safety Concerns: Feels Safe At This Time Assistive Devices: Glasses Review of Systems Constitutional: no fever and no chills Eyes: no blind spots and no worsening vision Ear, Nose, Mouth, Throat: no ear pain and no dysphagia Respiratory: no cough and no dyspnea Cardiovascular: no chest pain and no lightheadedness Additional Comments: History of AVR Gastrointestinal: + abdominal pain; no nausea and no vomit ing Genitourinary: no dysuria or no decreased urination Musculoskeletal: no back pain and no neck pain Integumentary: no acne, no skin ulcer and no skin swelling Neurologic: no gait abnormality, no headache(s) and no memory loss Psychiatric: no behavioral changes and no depression Hematologic / Lymphatic: no easy bleeding and no easy bruising Physical Exam Constitutional: WD/WN, vitals as above Eyes: PERRL, conjunctivae normal, anicteric sclerae ENMT: external ear and nose normal, oropharynx normal Neck: trachea midline, no thyromegaly Respiratory: normal respiratory effort, lungs clear to auscultation Cardiovascular: RRR, no murmur, no edema Gastrointestinal (Abdomen): Inspection/Auscultation: abdomen normal to inspection; abdomen not distended Percussion/Palpation: + abdomen tender (RUQ/RLQ) and abdomen soft; no guarding Musculoskeletal: no cyanosis or clubbing, extremities motor strength 5/5 Skin: no rashes, warm and dry Neurologic: PERRL, EOMI, accommodation nl, no face palsy, no dysarthria Psychiatric: A+Ox3, euthymic affect Results & Data Vital Signs (Past 12 Hours) Vital Signs Temp Pulse Pulse Resp BP BP Pulse Ox 04/08/24 07:25 36.6 C 54 L 18 162/74 H 96 04/08/24 07:00 52 L 04/08/24 04:13 36.9 C 59 L 18 176/79 H 96 04/07/24 21:36 59 L O2 Del Method 04/08/24 07:25 Room Air 04/08/24 07:00 04/08/24 04:13 Room Air, CPAP 04/07/24 21:36 PG Care Time/CCT Total # of Minutes Spent Total Time Spent with Patient: Total time spent is greater than 50% in coordination of care (as documented) at patient's floor/unit and/or counseling patient: Coding Level of Care Code 24653 INT INP/OBS CARE 3/75MIN Diagnoses Bacteremia R78.81 Cholecystitis, acute K81.0 CAD (coronary artery disease) I25.10 Atrial fibrillation I48.91
[2024-04-08 10:09] LABS: ANTI-Xa, UFH(UnfractionatedHep 0.77 IU/ml (0.3-0.7)
[2024-04-08 11:54] LABS: ANTI-Xa, UFH(UnfractionatedHep 0.69 IU/ml (0.3-0.7)
--- NOTE | 2024-04-08 12:24 | Hospitalist Progress Note ---
Date of Service April 08, 2024 Assessment & Plan (1) Cholecystitis, acute: Plan: ? Cholecystitis with bacteremia US-Gallbladder: Bladder edema present with negative Mattson sign Has been seen as outpatient several times for suspected cholecystitis, last seen by [place] [facility] 02/22/2024 and follow-up HIDA was recommended. Surgery was not performed due to history of anesthesia reaction and risk at that time Was seen at [facility] for right upper quadrant pain. Was discharged home, subsequent blood cultures were positive and was recommended to come to [facility] where he was pending surgical consultation several weeks for further care as to high surgical risk for [place] due to his history of anesthesia reaction Patient reports he has not been on any antibiotics in the previous few weeks, received a dose of cefepime at [place] but otherwise has not been on antibiotics KUB unobstructed CTA/P from 04/06/2024 at [place] reviewed: Cholelithiasis with moderate gallbladder distention. OSH 3/4 blood cultures positive for gram-negative rods. While at OSH lactate went from 2.63.6, patient did leave A and general surgery was not available at that facility for consultation. He received cefepime/Flagyl/vancomycin while in the ER at that time. HIDA scan 03/23 showed biliary dyskinesia with EF of 12%. Anaerobic bottles subsequently speciated for E. coli with sensitivities and remaining bottle speciations pending Lactic acid on ER arrival 1.0 -PCT elevated 6.34 Surgery consulted. Anesthesia notified of history of reaction as detailed below Continued on cefepime Flagyl Surgery ordered a HIDA scan. The plan to treat conservatively with IV antibiotics for the time being, hold his Eliquis and consider surgery not until Thursday. Eliquis A-fib stroke prophylaxis held, transition to heparin Surgery also recommends cardiology preop evaluation. Cardiology consulted. 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 Patient had been ordered vancomycin but this had not yet been infused at the time. He was treated with epinephrine, vasopressin, hydrocortisone, Benadryl, Pepcid with subsequent improvement over 10-20 minutes, tryptase level drawn at the time was elevated at 13.9. Followed up with allergy 07/2023. Skin testing to rocuronium/lidocaine/propofol/fentanyl/Versed were negative. No culprit drug was identified. Was recommended to select alternative anesthetic agents to what he had received during his surgery. Cisatracurium with lowest cross-reactivity and recommended for use over rocuronium if possible. No clear good alternative for other medications, 10% challenge dose followed by full dose in OR if could be performed. Lidocaine allergy ruled out, okay to use local anesthetics as needed. -Unclear from history what other medications patient was receiving at the time or that may have triggered his allergic reaction. Anesthesiology involved. (4) Atrial fibrillation: Plan: Paroxysmal A-fib On amiodarone, Eliquis, metoprolol at home Eliquis held, transition to heparin perioperatively for prophylaxis EKG: Reported as junctional however very low amplitude? P waves with consis tent NE appreciated, suspect sinus. Appropriate chronotropic response at bedside. No evidence of RVR Continue amiodarone 200 mg daily, metoprolol 25 mg daily (5) CAD (coronary artery disease): Plan: Hx valve replacements, elevated trop High sensitive troponin 40.5, repeat downtrending, no ischemic changes on EKG Patient uses an exercise bike, rope, bike, weight lifts, and does cardio 3 times a week and with vigorous exercise has had no chest pain or chest pressure. Has some dyspnea which feels appropriate to his level of exercise, notes due to some tracheal narrowing after his intubation he does have a little bit of wheezing with very vigorous exercise but which is not significantly limiting and has not changed in the previous few years. Heart surgery in 2020 was for 3x bad valves. Certified Detention Deputy is Dr. Justin Sood. - Aortic 27mm Tissue Heart Valve [id number] serial No [id number], MR Conditional 3T of less, spatial gradient field less than 3000 gauss/cm, max KUSHAL 2.0 W/kg - Mitral 34mm Annuloplasty band Model 4600, Serial [id number] - Tricuspid implant Tri-Ad 2.0 Greer valave replacemnet Serial [id number], Model [id number] MR Conditional. - Valve replaced by Dr. Dylan Panda MD [phone] at [facility] Denies history of ischemic heart disease, denies history of heart failure Echo pending (6) CKD (chronic kidney disease): Plan: History of CKD Baseline creatinine 1.21.6 Creatinine 1.28 on admission Estimated creatinine clearance greater than 60 BMP daily, renally adjust medications as needed Plan Chronic stable issues Severe DANIEL: CPAP nightly DVT prophylaxis: Eliquis transition to heparin pending surgical evaluation CODE STATUS: Full code Diet: N.p.o. Disposition: Medical telemetry Admission and Anticipated Discharge Date Admission Date: April 07, 2024 Subjective Patient feels well at this time. Denies chest pain or shortness of breath. Review of Systems Review of Systems: All systems reviewed & are unremarkable except as noted in Subjective Physical Exam Physical Exam: General: Awake, conversant Heart: S1, S2/regular rate and rhythm, no murmur rubs or gallops Lungs: Clear to auscultation bilaterally. Normal effort Abdomen: Soft/nontender/nondistended. No hepatosplenomegaly Extremities: No clubbing/cyanosis. No edema Behavior: Appropriate, cooperative Results & Data Results & Data Vital Signs (Past 12 Hours) Vital Signs Temp Pulse Pulse Resp BP BP Pulse Ox 04/08/24 07:25 36.6 C 54 L 18 162/74 H 96 04/08/24 07:00 52 L 04/08/24 04:13 36.9 C 59 L 18 176/79 H 96 O2 Del Method 04/08/24 07:25 Room Air 04/08/24 07:00 04/08/24 04:13 Room Air, CPAP Laboratory Results Abnormal lab results 04/07/24 04/07/24 04/07/24 Range/Units 11:36 12:29 13:34 RBC (4.70-6.10) M/uL Hgb (14.0-18.0) g/dl Hct (42.0-52.0) % RDW Std Deviation (36.4-46.3) fL Lymph # (Auto) (1.20-3.40) K/uL Lares # (Auto) (0.11-0.59) K/uL PT 13.4 H (9.0-12.0) Seconds INR 1.3 H (0.9-1.1) APTT 36 H (21-31) Seconds Heparin Anti-Xa, Unfract (0.3-0.7) IU/ml Sodium 132 L (136-145) mmol/L Calcium (8.6-10.3) mg/dl Direct Bilirubin 0.3 H (0-0.2) mg/dl Alkaline Phosphatase 108 H (34-104) U/L Troponin I High Sens 40.5 H 34.0 H (0-20) pg/ml Total Protein (6.0-8.3) gm/dl Globulin (2.5-4.0) gm/dl Procalcitonin 6.34 H (0-0.5) ng/ml Urine Ketones Trace H (Negative) 04/08/24 04/08/24 04/08/24 Range/Units 02:52 06:51 08:59 RBC 4.06 L (4.70-6.10) M/uL Hgb 13.0 L (14.0-18.0) g/dl Hct 37.3 L (42.0-52.0) % RDW Std Deviation 47.2 H (36.4-46.3) fL Lymph # (Auto) 1.15 L (1.20-3.40) K/uL [place] # (Auto) 1.22 H (0.11-0.59) K/uL PT (9.0-12.0) Seconds INR (0.9-1.1) APTT (21-31) Seconds Heparin Anti-Xa, Unfract 1.26 H* 0.80 H* 0.77 H* (0.3-0.7) IU/ml Sodium (136-145) mmol/L Calcium 8.5 L (8.6-10.3) mg/dl Direct Bilirubin (0-0.2) mg/dl Alkaline Phosphatase (34-104) U/L Troponin I High Sens (0-20) pg/ml Total Protein 5.5 L (6.0-8.3) gm/dl Globulin 2.1 L (2.5-4.0) gm/dl Procalcitonin (0-0.5) ng/ml Urine Ketones (Negative) Diagnostic Findings Chest X-Ray 04/07/24 11:29 XR chest 1V portable CLINICAL HISTORY: Sepsis TECHNIQUE: Single frontal radiograph of the chest was obtained. Comparison: None available at the time of this dictation. FINDINGS: Median sternotomy wires are unchanged. The cardiomediastinal silhouette is normal. The lungs are clear. No evidence of pleural effusion or pneumothorax. IMPRESSION: No acute abnormalities and in particular no radiographic evidence of pneumonia. ACT 112: Negative or not required by law. Electronically signed by: Noel Hickey M.D. 04/07/2024 1:20 PM Gallbladder Ultrasound 04/07/24 11:29 US gallbladder CLINICAL HISTORY: pain TECHNIQUE: Multiple real-time sonographic images of the right upper quadrant were obtained. Comparison: None available at the time of this dictation. FINDINGS: The liver is diffusely homogenous with normal contour and echogenicity. No focal mass lesions are seen. No intrahepatic ductal dilatation is seen. Gallbladder sludge versus stones are seen. The gallbladder wall is edematous measuring 1.1 cm. A sonographic Mattson's sign was not elicited by the cooper apprentice. The common duct measures 0.7 cm in diameter at the level of the hepatic artery. The visualized portions of the pancreas appear normal. The right kidney shows normal echogenicity, cortical thickness and renal contour. The right kidney shows no evidence of hydronephrosis. A cyst is in the lower pole measuring 5 mm. No ascites or free fluid is seen in Guadalupe's pouch. IMPRESSION: Gallbladder edema is seen with a negative Mattson's sign. Correlation with patient's pain medication history is recommended. ACT 112: Negative or not required by law. Electronically signed by: Noel Hickey M.D. 04/07/2024 1:20 PM KUB X-Ray 04/07/24 11:29 XR KUB/Abdomen 1 view CLINICAL HISTORY: pain TECHNIQUE: 1 view of the abdomen was obtained. Comparison: None available at the time of this dictation. FINDINGS: Lung bases are unremarkable. Degenerative changes are seen in the visualized skeleton. The bowel gas pattern is nonobstructive. Small stool burden is seen. IMPRESSION: Nonobstructive bowel gas pattern. ACT 112: Negative or not required by law. Electronically signed by: Noel Hickey M.D. 04/07/2024 1:26 PM PG Care Time/CCT Total # of Minutes Spent Total Time Spent with Patient: Total time spent is greater than 50% in coordination of care (as documented) at patient's floor/unit and/or counseling patient: Coding Level of Care Code 68760 SUB INP/OBS CARE MIN Diagnoses Cholecystitis, acute K81.0 COVID-19 U07.1 Drug-induced hypersensitivity reaction T78.40XA Atrial fibrillation I48.91 CAD (coronary artery disease) I25.10 CKD (chronic kidney disease) N18.9
[2024-04-08] MEDS: MoRPHine SULFATE 2 MG/ML CARP IV STA (12:30)
[2024-04-08] MEDS: MoRPHine SULFATE 2 MG/ML CARP ONE (12:31)
--- NOTE | 2024-04-08 13:02 | Cardiology Consultation ---
Date of Consultation April 08, 2024 Assessment & Plan (1) Preop cardiovascular exam: (2) Hx of aortic valve replacement: (3) Hx of mitral valve repair: (4) Hx of tricuspid valve repair: (5) Paroxysmal atrial fibrillation: (6) Hypertension: (7) Mitral regurgitation: Plan ASSESSMENT/PLAN: 1. Preoperative cardiac assessment: Able to achieve significant exercise without angina or heart failure symptoms, and in fact improved exercise tolerance. Low cardiac risk for possible upcoming surgery. Would remain on amiodarone, if no contraindication throughout the perioperative period, as recurrence of atrial fibrillation more common with surgery and other stresses to the body. On anticoagulation therapy for stroke risk reduction which can be held as appropriate for surgery. 2. Bioprosthetic aortic valve: Appropriate function on today's echo. SBE prophylaxis for dental procedures. 3. Mitral valve repair with moderate mitral regurgitation: Asymptomatic. Should be followed in the outpatient setting with his primary slot floor supervisor. 4. Paroxysmal atrial fibrillation: Can continue amiodarone as tolerated as per his outpatient slot floor supervisor. Continue anticoagulation for stroke risk reduction, which can be held for surgery when necessary. 5. Hypertension: Blood pressure mostly elevated while here. As per primary hospitalist service. 6. Disposition: Please call on-call cardiology for any further questions or concerns. Cardiology will sign off at this time. Continue to follow with Dr. Anderson, his outpatient slot floor supervisor. Thank you for allowing me to participate in the care of your patient. Please call for any other questions or concerns. Sincerely, Benson Segovia M.D. History of Present Illness Reason for Consultation: Preoperative cardiac assessment Requesting Physician: Teodoro Clement Attending Physician: Bethany Rothman MD History of Present Illness Mr. Jerry is a very pleasant 74-year-old gentleman with history significant for bioprosthetic aortic valve, mitral and tricuspid valve repairs, atrial fibrillation, CKD, hypertension, and sleep apnea. His primary slot floor supervisor is Dr. Anderson in the [place] area. His cardiac history is pertinent for severe aortic regurgitation and mitral regurgitation. He underwent bioprosthetic aortic valve replacement with mitral and tricuspid valve repairs on 11/16/2019 at [facility]. He also went left atrial appendage closure. His preoperative cardiac catheterization described no significant coronary artery disease. He has had the following studies/procedures: 1. Cardiac cath 10/07/2019 [place]: No significant CAD. 2-3+ AI. Ascending aorta 5 cm. 2+ MR. EF 50 to 55%. 2. Aortic valve replacement, mitral valve repair, tricuspid valve repair 11/16/2019 [facility]: AVR 27 mm CEP Magna Ease; mitral valve repair with 34 mm SJM band; tricuspid valve repair with 32 mm TriAD; full Maze procedure, left atrial appendage closure. He was hospitalized here on 04/07/2024 with concern for acute cholecystitis. He has been experiencing right upper quadrant pain. He denies chest pain, shortness of breath, syncope, near syncope, palpitations, edema, or bleeding such as melena, hematochezia, or hematuria. He exercises a few hours per day, 3 days/week including significant cardiovascular exercise. With lifestyle adjustment, exercise and diet, he has lost approximately 90 pounds and feels much better for it. Exercise tolerance has improved. Incidentally, he was recently in [place] on a beach vacation with family members. Several family members became ill and he is tested positive for COVID. He has had some head congestion. Review of systems: As above. Family history: Noncontributory. Social history: Smokes pipe. No drug abuse. . His was present at the bedside. Allergies Allergy/AdvReac Type Severity Reaction Status Date / Time Penicillins Allergy unk Verified 04/07/24 13:19 Anesthesia AdvReac coma Uncoded 04/07/24 13:20 Home Medications Medication Instructions Recorded Confirmed Type Zinc Tab 1 tab PO DAILY 04/07/24 04/07/24 History amiodarone 200 mg tablet 200 mg PO 3XWK 04/07/24 04/07/24 History apixaban 5 mg tablet (Eliquis) 5 mg PO BID 04/07/24 04/07/24 History ascorbic acid (vitamin C) 1,000 mg 1 g PO DAILY 04/07/24 04/07/24 History tablet (Vitamin C) aspirin 81 mg tablet,delayed 81 mg PO QPM 04/07/24 04/07/24 History release cholecalciferol (vitamin D3) 50 100 mcg PO DAILY 04/07/24 04/07/24 History mcg (2,000 unit) capsule (Vitamin D3) ferrous sulfate 324 mg (65 mg 0 mg PO 2XWK 04/07/24 04/07/24 History iron) tablet,delayed release metoprolol tartrate 25 mg tablet 25 mg PO BID 04/07/24 04/07/24 History multivitamin 1 tab PO DAILY 04/07/24 04/07/24 History Problem List (Updated 04/08/24 @ 19:44 by Chano Segovia MD) Mitral regurgitation Paroxysmal atrial fibrillation Preop cardiovascular exam CKD (chronic kidney disease) COVID-19 (Acute) Bacteremia (Acute) Cholecystitis, acute (Acute) Hypertension Aortic valve disorder Mitral valve disorder Diverticula of colon GERD (gastroesophageal reflux disease) Sleep apnea Drug-induced hypersensitivity reaction Nocturnal hypoxemia Acute kidney injury Hypothyroidism Atrial fibrillation Severe obstructive sleep apnea Chronic gastroesophageal reflux disease Acquired deviated nasal septum (Acute) Obesity (Acute) Patient History Medical History (Updated 04/08/24 @ 19:44 by Chano Segovia MD) Peripheral neuropathy Restless leg syndrome Diverticulosis Urethral stricture Herpes zoster Sternal fracture Surgical History Hx of tricuspid valve repair (~2020) Hx of mitral valve repair (~2020) Hx of aortic valve replacement (~2020) History of colonoscopy Family History Other Cancer Social History Smoking Status: Current every day smoker Tobacco Type: Pipe Second Hand Exposure: No; Do You Dip or Chew Tobacco: No; Hx Alcohol Use: No Hx Substance Use: No Preferred Language: Greenlandic Communication Ability: Effective Facilities Clerk Required: No Beliefs That Will Affect Care: None marital status: Current Living Situation: Spouse current occupational status: retired Feels Safe at Home: Yes Safety Concerns: Feels Safe At This Time Assistive Devices: None Physical Exam Physical Exam: Gen.: No acute distress. Alert and oriented. HEENT: Anicteric sclera. Neck: No JVD. No bruits. Normal carotid upstrokes bilaterally. Cardiac: No ventricular heave. Regular. Normal S1-S2. 1/6 systolic murmur. Pulmonary: Clear to auscultation bilaterally without wheezes, rales, or rhonchi. Abdomen: Soft, nondistended, with normoactive bowel sounds. Mild right upper quadrant tenderness. No bruits noted. Extremities: 2+ radial pulses bilaterally. 2+ posterior tibialis pulses bilatera lly. No edema or cyanosis. Psychiatric: Affect appears appropriate. Results & Data Vital Signs (Past 12 Hours) Vital Signs Temp Pulse Pulse Resp BP BP Pulse Ox 04/08/24 07:25 36.6 C 54 L 18 162/74 H 96 04/08/24 07:00 52 L 04/08/24 04:13 36.9 C 59 L 18 176/79 H 96 O2 Del Method 04/08/24 07:25 Room Air 04/08/24 07:00 04/08/24 04:13 Room Air, CPAP Laboratory Results Laboratory Results - last 24 hr 04/07/24 04/08/24 04/08/24 11:36 02:52 06:51 WBC 6.39 RBC 4.06 L Hgb 13.0 L Hct 37.3 L MCV 91.9 MCH 32.0 MCHC 34.9 RDW Std Deviation 47.2 H RDW Coeff of Kaylie 13.9 Plt Count 137 MPV 9.7 Immature Gran % (Auto) 0.3 Neut % (Auto) 62.1 Lymph % (Auto) 18.0 [place] % (Auto) 19.1 Eos % (Auto) 0.2 Baso % (Auto) 0.3 Neut # (Auto) 3.97 Lymph # (Auto) 1.15 L [place] # (Auto) 1.22 H Eos # (Auto) 0.01 Baso # (Auto) 0.02 Immature Gran # (Auto) 0.02 Heparin Anti-Xa, Unfract 1.26 H* Cancelled Sodium 137 Potassium 4.1 Chloride 107 Carbon Dioxide 24 Anion Gap 6 BUN 16 Creatinine 1.02 Est Cr Clr Drug Dosing 87.5 Est GFR ( Amer) 84.1 Est GFR (Non-Af Amer) 72.6 BUN/Creatinine Ratio 15.7 Glucose 90 Calcium 8.5 L Total Bilirubin 1.0 AST 29 ALT 30 Alkaline Phosphatase 97 Total Protein 5.5 L Albumin 3.4 Globulin 2.1 L Albumin/Globulin Ratio 1.6 Bld Cult ID Panel PCR Pending 04/08/24 04/08/24 04/08/24 06:51 08:59 11:07 WBC RBC Hgb Hct MCV MCH MCHC RDW Std Deviation RDW Coeff of Kaylie Plt Count MPV Immature Gran % (Auto) Neut % (Auto) Lymph % (Auto) [place] % (Auto) Eos % (Auto) Baso % (Auto) Neut # (Auto) Lymph # (Auto) [place] # (Auto) Eos # (Auto) Baso # (Auto) Immature Gran # (Auto) Heparin Anti-Xa, Unfract 0.80 H* 0.77 H* 0.69 Sodium Potassium Chloride Carbon Dioxide Anion Gap BUN Creatinine Est Cr Clr Drug Dosing Est GFR ( Amer) Est GFR (Non-Af Amer) BUN/Creatinine Ratio Glucose Calcium Total Bilirubin AST ALT Alkaline Phosphatase Total Protein Albumin Globulin Albumin/Globulin Ratio Bld Cult ID Panel PCR Diagnostic Findings ECHO 04/08/24: 1. Normal left ventricular size and systolic function. EF 55-60%. No regional wall motion abnormalities. Mild concentric left ventricular hypertrophy. 2. Biatrial dilation. 3. Bioprosthetic aortic valve with acceptable transvalvular gradient. 4. s/p tricuspid valve annuloplasty ring with mild regurgitation. 5. s/p mitral valve annuloplasty ring with moderate mitral regurgitation. Mildly elevated transvalvular velocity and borderline elevated transvalvular gradient. 6. Borderline elevated right ventricular systolic pressure, assuming normal right atrial pressure. 7. No prior study available for comparison. Labs reviewed and notable for elevated high-sensitivity troponin, peak 40. Normal potassium, stable renal function, normal magnesium, normal transaminase levels, mild anemia. Outside hospital operative note and cardiac cath reports reviewed as noted above in HPI. ECG personally reviewed 04/07/2024 at 11:49 AM: Sinus bradycardia first-degree AV block 49 bpm. Cannot rule out anterior infarct. Telemetry personally reviewed: Sinus rhythm with sinus bradycardia in the 50s this morning. Surgery consult reviewed from 04/08/2024. History and physical report reviewed. HIDA scan 04/08/2024: Normal gallbladder EF greater than 33%. Gallbladder ultrasound 04/07/2024: Gallbladder edema with negative Mattson sign. Chest x-ray 04/07/2024: No acute abnormalities per radiology. Medications Administered Current Inpatient Medications Acetaminophen (Acetaminophen 500 Mg Tab) 500 mg PO Q4H PRN PRN Reason: pain first line, fever Stop: 05/07/24 14:38 Amiodarone HCl (Amiodarone 200 Mg Tab) 200 mg PO MoWeFr ESTEFANI Stop: 05/08/24 08:59 Last Admin: 04/08/24 08:28 Dose: Not Given Ascorbic Acid (Ascorbic Acid 500 Mg Tab) 1,000 mg PO DAILY [facility] Stop: 05/08/24 08:59 Last Admin: 04/08/24 08:28 Dose: Not Given Aspirin (Aspirin 81 Mg Ectab) 81 mg PO QPM ESTEFANI Stop: 05/07/24 20:59 Last Admin: 04/07/24 22:33 Dose: Not Given Hydromorphone HCl (Hydromorphone Inj 0.5 Mg/0.5 Ml Syr) 0.5 mg IV Q3H PRN PRN Reason: Moderate Pain (4,5,6) on NRS Stop: 04/21/24 14:31 Last Admin: 04/08/24 03:07 Dose: 0.5 mg Hydromorphone HCl (Hydromorphone Inj 1 Mg/Ml Syringe) 1 mg IV Q3H PRN PRN Reason: Severe Pain (7,8,9,10) on NRS Stop: 04/21/24 14:31 Cefepime HCl 2,000 mg/ Syringe 20 mls @ 5 mls/min IV Q8H ESTEFANI; Protocol Stop: 04/17/24 21:29 Last Admin: 04/08/24 13:35 Dose: 5 mls/min Metronidazole (Flagyl) 500 mg in 100 mls @ 100 mls/hr IV Q8H ESTEFANI; Protocol Stop: 04/11/24 22:44 Last Infusion: 04/08/24 14:47 Dose: Infused Lactated Ringer's (Lr) 1,000 mls @ 120 mls/hr IV .Q8H20M ESTEFANI Stop: 05/07/24 14:44 Last Admin: 04/08/24 16:58 Dose: 120 mls/hr Heparin Sodium/Dextrose (Heparin Sodium/Dextrose) 25,000 units in 500 mls @ 11 mls/hr IV .Q24H [facility]; Protocol Stop: 05/07/24 20:59 Last Titration: 04/08/24 19:02 Dose: 550 units/hr, 11 mls/hr Ketorolac Tromethamine (Ketorolac Tromethamine 15 Mg/Ml Vial) 10 mg IV Q6H PRN PRN Reason: pain, second line Stop: 04/12/24 14:44 Last Admin: 04/08/24 08:37 Dose: 10 mg Metoprolol Tartrate (Metoprolol Tartrate 25 Mg Tab) 25 mg PO BID ESTEFANI Stop: 05/07/24 20:59 Last Admin: 04/08/24 08:28 Dose: Not Given Miscellaneous (*Hold Heparin Infusion*Pending Order) 1 each N/A 0400 ONE Stop: 04/12/24 04:01 Vitamin D (Cholecalciferol 25 Mcg (1000 Units) Tab) 100 mcg PO DAILY ESTEFANI Stop: 05/08/24 08:59 Last Admin: 04/08/24 08:28 Dose: Not Given PG Care Time/CCT Total # of Minutes Spent Total Time Spent with Patient: Total time spent is greater than 50% in coordination of care (as documented) at patient's floor/unit and/or counseling patient: Coding Level of Care Code 44359 INT INP/OBS CARE 2/55MIN Diagnoses Preop cardiovascular exam Z01.810 Hx of aortic valve replacement Z95.2 Hx of mitral valve repair Z98.890 Hx of tricuspid valve repair Z98.890 Paroxysmal atrial fibrillation I48.0 Hypertension I10 Mitral regurgitation I34.0
--- NOTE | 2024-04-08 13:03 | Nuclear Medicine Report ---
NM hepatobiliary CLINICAL HISTORY: cholecystitis TECHNIQUE: Following the intravenous injection of 5 mCi of Tc-99m labeled Technetium 99m mebrofenin, multiple images of the upper abdomen were obtained in the anterior projection with uptake measuremen ts of the gallbladder obtained. Comparison: Comparison is made to gallbladder ultrasound 04/07/2024 FINDINGS: Sequential images demonstrate normal uptake in the liver, common bile duct, and small bowel . No uptake was seen in the gallbladder. Following administration of morphine, no gallbladder uptake was seen. IMPRESSION: No uptake of radiotracer by the gallbladder, including following morphine administration. Findings ar e compatible with acute cholecystitis. Reference: Normal gallbladder ejection fraction is greater than 33%. ACT 112: Negative or not required by law. Electronically signed by: Noel Hickey M.D. 04/08/2024 1:02 PM
--- NOTE | 2024-04-08 14:58 | XCELERA ---
[id number] \\[email or web address]_[email or web address]\[id number]
[2024-04-08 20:40] LABS: ANTI-Xa, UFH(UnfractionatedHep 0.54 IU/ml (0.3-0.7)
[2024-04-08 20:42] LABS: A calco-baum cmplx NotReported Not Detected (NotDetected); Bact fragilis Not Reported Not Detected (NotDetected); Blood Culture Id Panel PCR Panel Negative (NotDetected); C auris Not Reported Not Detected (NotDetected); Calbicans Not Reported Not Detected (NotDetected); Candida glabrata Not Reported Not Detected (NotDetected); Candida krusei Not Reported Not Detected (NotDetected); Cneoformans/gatti Not Reported Not Detected (NotDetected); Cparapsilosis Not Reported Not Detected (NotDetected); E cloacae compx Not Reported Not Detected (NotDetected); Efaecalis Not Reported Not Detected (NotDetected); Efaecium Not Reported Not Detected (NotDetected); Enterobacterales Not Reported Not Detected (NotDetected); Escherichia coli Not Reported Not Detected (NotDetected); H influenzae Not Reported Not Detected (NotDetected); K aerogenes Not Reported Not Detected (NotDetected); Koxytoca Not Reported Not Detected (NotDetected); Kpneumoniae grp Not Reported Not Detected (NotDetected); Lmonocyt Not Reported Not Detected (NotDetected); N meningitidis Not Reported Not Detected (NotDetected); P aeruginosa Not Reported Not Detected (NotDetected); Proteus spp Not Reported Not Detected (NotDetected); Salmonella spp Not Reported Not Detected (NotDetected); Staph lugdunensis Not Reported Not Detected (NotDetected); Staph spp. Not Reported Not Detected (NotDetected); Staphaureus Not Reported Not Detected (NotDetected); Staphepi Not Reported Not Detected (NotDetected); Stenmaltophilia Not Reported Not Detected (NotDetected); Strep agal(GrpB) Not Reported Not Detected (NotDetected); Strep pneum Not Reported Not Detected (NotDetected); Strep pyog (GrpA) Not Reported Not Detected (NotDetected); Strep spp Not Reported Not Detected (NotDetected)
--- NOTE | 2024-04-09 05:53 | Surgery Progress Note ---
Date of Service April 09, 2024 Assessment & Plan (1) Cholecystitis, acute: Plan: Patient has been admitted on the medical service: Gallbladder ultrasound on 04/07/2024 showed gallbladder edema with some gallbladder sludge and stones. HIDA scan was performed on 04/08/2024. This showed findings compatible with acute cholecystitis and a normal gallbladder ejection fraction Blood cultures on 04/07/2024 had 1 out of 2 cultures positive for gram-positive bacilli with further identification pending From surgical perspective we recommend the following: Continue analgesics Continue antiemetics Continue antibiotics in form of cefepime and Flagyl Maintain on clear liquids for the present time Continue IV fluids until oral intake can be advanced further and is noted to be reliable Check a.m. labs when available Patient has been seen by cardiology for preoperative evaluation. He had an echocardiogram on 04/08/2024 that showed 60% ejection fraction and no regional wall motion abnormalities patient has been deemed low cardiac risk for surgical intervention. Anticoagulation can be held for surgical procedures. Timing of any surgical procedure to be determined as patient has tested positive for COVID on 04/07/2024 Admission and Anticipated Discharge Date Admission Date: April 07, 2024 Supervising Physician Co-Signing Physician Notes I personally saw and evaluated the patient with Adams Moreno PA-C and agree with the assessment plan. 74-year-old male with bacteremia, acute cholecystitis His HIDA images personally reviewed and interpreted Will be for a percutaneous cholecystostomy tube placed by IR on Thursday His cardiology note was reviewed, with his active COVID as well as his a naphylactic reaction to anesthesia putting him under anesthesia at this point would put him at an unnecessary risk Will continue to follow Subjective Patient is currently resting comfortably in bed. He denies any nausea or vomiting and notes that with clear liquids he did not have any worsening abdominal pain. He does, however continues to note some minor abdominal pain in the right upper quadrant. He is passing flatus but has not had a bowel movement since admission. He denies any fevers, shakes, or chills Physical Exam Gastrointestinal (Abdomen): Abdomen is soft and nondistended. There is no rigidity or rebound tenderness. Patient did have some slight tenderness with palpation in the right upper quadrant. Results & Data Vital Signs (Past 12 Hours) Vital Signs Temp Pulse Pulse Resp BP BP Pulse Ox 04/09/24 02:41 36.9 C 53 L 16 157/76 H 96 04/08/24 22:08 36.8 C 60 18 130/66 93 04/08/24 21:57 62 04/08/24 19:45 36.8 C 64 16 165/78 H 96 O2 Del Method 04/09/24 02:41 Room Air 04/08/24 22:08 Room Air 04/08/24 21:57 04/08/24 19:45 Room Air PG Care Time/CCT Total # of Minutes Spent Total Time Spent with Patient: Total time spent is greater than 50% in coordination of care (as documented) at patient's floor/unit and/or counseling patient: Coding Level of Care Code 89882 SUB INP/OBS CARE Diagnoses Cholecystitis, acute K81.0
[2024-04-09 07:18] LABS: Basophils # (auto) 0.02 K/uL (0.00-0.20); Basophils % (auto) 0.2 %; Hematocrit (blood only) 36.7 % (42.0-52.0); Hemoglobin 12.6 g/dl (14.0-18.0); Immature Granulocytes # (auto) 0.04 K/uL (0.01-0.20); Immature Granulocytes % (auto) 0.5 %; Lymphocytes # (auto) 0.74 K/uL (1.20-3.40); Lymphocytes % (auto) 8.5 %; Mean Corpuscular Hemoglobin 31.2 pg (25.0-34.0); Mean Corpuscular Hgb Conc 34.3 g/dL (32.0-36.0); Mean Corpuscular Volume 90.8 fL (80.0-100.0); Mean Platelet Volume 9.4 fL (9.4-12.4); Monocytes # (auto) 1.25 K/uL (0.11-0.59); Monocytes % (auto) 14.4 %; Neutrophils # (auto) 6.65 K/uL (1.40-6.50); Neutrophils % (auto) 76.4 %; Platelet Count 140 K/uL (130-400); RDW Coefficient of Variation 13.4 % (11.5-14.5); RDW Standard Deviation 45.3 fL (36.4-46.3); Red Blood Count 4.04 M/uL (4.70-6.10)
[2024-04-09 07:27] LABS: Albumin Globulin Ratio 1.4 (0.9-2); Albumin Level 3.1 gm/dl (3.4-5.0); BUN Creatinine Ratio 11.9 (10-20); Bilirubin,Total 1.4 mg/dl (0.2-1.0); Calcium 7.8 mg/dl (8.6-10.3); Creatinine Clr Calc Pharmacy 88.1 ml/min; Est GFR (African American) 85.1 ml/min; Est GFR (Non-African American) 73.4 ml/min; Globulin 2.2 gm/dl (2.5-4.0); Potassium 3.8 mmol/L (3.5-5.1); Total Protein 5.3 gm/dl (6.0-8.3)
[2024-04-09 07:35] LABS: ANTI-Xa, UFH(UnfractionatedHep 0.43 IU/ml (0.3-0.7)
--- NOTE | 2024-04-09 11:56 | Hospitalist Progress Note ---
Date of Service April 09, 2024 Assessment & Plan (1) Cholecystitis, acute: Plan: ? Cholecystitis with bacteremia US-Gallbladder: Bladder edema present with negative Mattson sign Has been seen as outpatient several times for suspected cholecystitis, last seen by [facility] 02/22/2024 and follow-up HIDA was recommended. Surgery was not performed due to history of anesthesia reaction and risk at that time Was seen at [facility] for right upper quadrant pain. Was discharged home, subsequent blood cultures were positive and was recommended to come to [facility] where he was pending surgical consultation several weeks for further care as to high surgical risk for [place] due to his history of anesthesia reaction Patient reports he has not been on any antibiotics in the previous few weeks, received a dose of cefepime at [place] but otherwise has not been on antibiotics KUB unobstructed CTA/P from 04/06/2024 at [place] reviewed: Cholelithiasis with moderate gallbladder distention. OSH 3/4 blood cultures positive for gram-negative rods. While at OSH lactate went from 2.63.6, patient did leave A and general surgery was not available at that facility for consultation. He received cefepime/Flagyl/vancomycin while in the ER at that time. HIDA scan 03/23 showed biliary dyskinesia with EF of 12%. Anaerobic bottles subsequently speciated for E. coli with sensitivities and remaining bottle speciations pending I called micro lab at [facility] 04/09. Blood cultures were positive for E. coli that was pansensitive. Patient was on cefepime and Flagyl. Will switch to ceftriaxone and Flagyl. HIDA scan concerning for acute cholecystitis Surgery on board. Anesthesiology on board. Patient tells me that he was informed by surgeon that the plan is for IR procedure on Thursday. Awaiting final recommendation and plan from surgery Surgery consulted. Anesthesia notified of history of reaction as detailed below Eliquis A-fib stroke prophylaxis held, transition to heparin Cardiology preop evaluation completed. 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 Patient had been ordered vancomycin but this had not yet been infused at the time. He was treated with epinephrine, vasopressin, hydrocortisone, Benadryl, Pepcid with subsequent improvement over 10-20 minutes, tryptase level drawn at the time was elevated at 13.9. Followed up with allergy 07/2023. Skin testing to rocuronium/lidocaine/propofol/fentanyl/Versed were negative. No culprit drug was identified. Was recommended to select alternative anesthetic agents to what he had received during his surgery. Cisatracurium with lowest cross-reactivity and recommended for use over rocuronium if possible. No clear good alternative for other medications, 10% challenge dose followed by full dose in OR if could be performed. Lidocaine allergy ruled out, okay to use local anesthetics as needed. -Unclear from history what other medications patient was receiving at the time or that may have triggered his allergic reaction. Anesthesiology involved. (4) Atrial fibrillation: Plan: Paroxysmal A-fib On amiodarone, Eliquis, metoprolol at home Eliquis held, transition to heparin perioperatively for prophylaxis EKG: Reported as junctional however very low amplitude? P waves with consistent [place] appreciated, suspect sinus. Appropriate chronotropic response at bedside. No evidence of RVR Continue amiodarone 200 mg daily, metoprolol 25 mg daily (5) CAD (coronary artery disease): Plan: Hx valve replacements, elevated trop High sensitive troponin 40.5, repeat downtrending, no ischemic changes on EKG Patient uses an exercise bike, rope, bike, weight lifts, and does cardio 3 times a week and with vigorous exercise has had no chest pain or chest pressure. Has some dyspnea which feels appropriate to his level of exercise, notes due to some tracheal narrowing after his intubation he does have a little bit of wheezing with very vigorous exercise but which is not significantly limiting and has not changed in the previous few years. Heart surgery in 2019 was for 3x bad valves. [place] is Dr. Justin Sood. - Aortic 27mm Tissue Heart Valve [id number] serial No [id number], MR Conditional 3T of less, spatial gradient field less than 3000 gauss/cm, max KUSHAL 2.0 W/kg - Mitral 34mm Annuloplasty band Model 4600, Serial [id number] - Tricuspid implant Tri-Ad 2.0 Greer valave replacemnet Serial [id number], Model [id number] MR Conditional. - Valve replaced by Dr. Dylan Panda MD [phone] [facility] Denies history of ischemic heart disease, denies history of heart failure Echo reviewed (6) CKD (chronic kidney disease): Plan: History of CKD Baseline creatinine 1.21.6 Creatinine 1.28 on admission. 1 today. Estimated creatinine clearance greater than 60 BMP daily, renally adjust medications as needed Plan Chronic stable issues Severe DANIEL: CPAP nightly DVT prophylaxis: Eliquis transition to heparin pending surgical evaluation CODE STATUS: Full code Diet: Clear liquid diet Admission and Anticipated Discharge Date Admission Date: April 07, 2024 Subjective Patient feels well overall. Denies chest pain or shortness of breath. Belly pain in the right upper quadrant is improving. No cough. No fever Review of Systems Review of Systems: All systems reviewed & are unremarkable except as noted in Subjective Physical Exam Physical Exam: General: Awake, conversant Heart: S1, S2/regular rate and rhythm, no murmur rubs or gallops Lungs: Clear to auscultation bilaterally. Normal effort Abdomen: Soft/nontender/nondistended. No hepatosplenomegaly Extremities: No clubbing/cyanosis. No edema Behavior: Appropriate, cooperative Results & Data Results & Data Vital Signs (Past 12 Hours) Vital Signs Temp Pulse Pulse Resp BP Pulse Ox O2 Del Method 04/09/24 11:25 36.8 C 52 L 16 165/81 H 97 Room Air 04/09/24 07:54 Room Air 04/09/24 07:37 54 L 04/09/24 07:35 36.9 C 56 L 16 154/78 H 95 Room Air 04/09/24 02:41 36.9 C 53 L 16 157/76 H 96 Room Air Laboratory Results Abnormal lab results 04/09/24 Range/Units 06:52 RBC 4.04 L (4.70-6.10) M/uL Hgb 12.6 L (14.0-18.0) g/dl Hct 36.7 L (42.0-52.0) % Neut # (Auto) 6.65 H (1.40-6.50) K/uL Lymph # (Auto) 0.74 L (1.20-3.40) K/uL [place] # (Auto) 1.25 H (0.11-0.59) K/uL Sodium 135 L (136-145) mmol/L Glucose 118 H (70-99(Fasting)) mg/dl Calcium 7.8 L (8.6-10.3) mg/dl Total Bilirubin 1.4 H (0.2-1.0) mg/dl Total Protein 5.3 L (6.0-8.3) gm/dl Albumin 3.1 L (3.4-5.0) gm/dl Globulin 2.2 L (2.5-4.0) gm/dl Diagnostic Findings Hepatobiliary Scan Nuclear Medicine 04/08/24 08:42 NM hepatobiliary CLINICAL HISTORY: cholecystitis TECHNIQUE: Following the intravenous injection of 5 mCi of Tc-99m labeled Technetium 99m mebrofenin, multiple images of the upper abdomen were obtained in the anterior projection with uptake measurements of the gallbladder obtained. Comparison: Comparison is made to gallbladder ultrasound 04/07/2024 FINDINGS: Sequential images demonstrate normal uptake in the liver, common bile duct, and small bowel. No uptake was seen in the gallbladder. Following administration of morphine, no gallbladder uptake was seen. IMPRESSION: No uptake of radiotracer by the gallbladder, including following morphine administration. Findings are compatible with acute cholecystitis. Reference: Normal gallbladder ejection fraction is greater than 33%. ACT 112: Negative or not required by law. Electronically signed by: Noel Hickey M.D. 04/08/2024 1:02 PM PG Care Time/CCT Total # of Minutes Spent Total Time Spent with Patient: Total time spent is greater than 50% in coordination of care (as documented) at patient's floor/unit and/or counseling patient: Coding Level of Care Code 84523 SUB INP/OBS CARE 2/35MIN Diagnoses Cholecystitis, acute K81.0 COVID-19 U07.1 Drug-induced hypersensitivity reaction T78.40XA Atrial fibrillation I48.91 CAD (coronary artery disease) I25.10 CKD (chronic kidney disease) N18.9
[2024-04-09] MEDS: cefTRIAXone SODIUM 1,000 MG/50 ML BAG IV SCH (12:52)
[2024-04-10 08:09] LABS: Basophils # (auto) 0.01 K/uL (0.00-0.20); Basophils % (auto) 0.1 %; Eosinophils # (auto) 0.01 K/uL (0.00-0.50); Eosinophils % (auto) 0.1 %; Hemoglobin 12.2 g/dl (14.0-18.0); Immature Granulocytes # (auto) 0.05 K/uL (0.01-0.20); Immature Granulocytes % (auto) 0.7 %; Lymphocytes % (auto) 10.6 %; Mean Corpuscular Hemoglobin 31.8 pg (25.0-34.0); Mean Corpuscular Hgb Conc 34.9 g/dL (32.0-36.0); Mean Corpuscular Volume 91.1 fL (80.0-100.0); Monocytes # (auto) 1.04 K/uL (0.11-0.59); Monocytes % (auto) 13.7 %; Neutrophils # (auto) 5.67 K/uL (1.40-6.50); Neutrophils % (auto) 74.8 %; Platelet Count 136 K/uL (130-400); RDW Coefficient of Variation 13.3 % (11.5-14.5); RDW Standard Deviation 44.9 fL (36.4-46.3); Red Blood Count 3.84 M/uL (4.70-6.10); White Blood Count 7.58 K/ul (4.8-10.8)
[2024-04-10 08:23] LABS: Albumin Globulin Ratio 1.3 (0.9-2); Albumin Level 2.8 gm/dl (3.4-5.0); BUN Creatinine Ratio 10.4 (10-20); Bilirubin,Total 1.3 mg/dl (0.2-1.0); Calcium 7.7 mg/dl (8.6-10.3); Creatinine Clr Calc Pharmacy 92.6 ml/min; Est GFR (African American) 90.5 ml/min; Est GFR (Non-African American) 78.1 ml/min; Globulin 2.2 gm/dl (2.5-4.0); Potassium 3.5 mmol/L (3.5-5.1)
[2024-04-10 08:33] LABS: ANTI-Xa, UFH(UnfractionatedHep 0.23 IU/ml (0.3-0.7)
--- NOTE | 2024-04-10 13:08 | Hospitalist Progress Note ---
Date of Service April 10, 2024 Assessment & Plan (1) Cholecystitis, acute: Plan: ? Cholecystitis with bacteremia US-Gallbladder: Bladder edema present with negative Mattson sign Has been seen as outpatient several times for suspected cholecystitis, last seen by [facility] 02/[facility]/2024 and follow-up HIDA was recommended. Surgery was not performed due to history of anesthesia reaction and risk at that time Was seen at [facility] for right upper quadrant pain. Was discharged home, subsequent blood cultures were positive and was recommended to come to [facility] where he was pending surgical consultation several weeks for further care as to high surgical risk for [place] due to his history of anesthesia reaction Patient reports he has not been on any antibiotics in the previous few weeks, received a dose of cefepime at [facility] but otherwise has not been on antibiotics KUB unobstructed CTA/P from 04/06/2024 at [place] reviewed: Cholelithiasis with moderate gallbladder distention. OSH 3/4 blood cultures positive for gram-negative rods. While at OSH lactate went from 2.63.6, patient did leave A and general surgery was not available at that facility for consultation. He received cefepime/Flagyl/vancomycin while in the ER at that time. HIDA scan 03/23 showed biliary dyskinesia with EF of 12%. Anaerobic bottles subsequently speciated for E. coli with sensitivities and remaining bottle speciations pending I called micro lab at [facility] 04/09. Blood cultures were positive for E. coli that was pansensitive. Currently the patient is on ceftriaxone and Flagyl HIDA scan concerning for acute cholecystitis Surgery on board. Anesthesiology on board. Patient tells me that he was informed by surgeon that the plan is for IR procedure on Thursday. Awaiting final recommendation and plan from surgery Eliquis A-fib stroke prophylaxis held, transition to heparin Cardiology preop evaluation completed. 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 Patient had been ord ered vancomycin but this had not yet been infused at the time. He was treated with epinephrine, vasopressin, hydrocortisone, Benadryl, Pepcid with subsequent improvement over 10-20 minutes, tryptase level drawn at the time was elevated at 13.9. Followed up with allergy 07/2023. Skin testing to rocuronium/lidocaine/propofol/fentanyl/Versed were negative. No culprit drug was identified. Was recommended to select alternative anesthetic agents to what he had received during his surgery. Cisatracurium with lowest cross-reactivity and recommended for use over rocuronium if possible. No clear good alternative for other medications, 10% challenge dose followed by full dose in OR if could be performed. Lidocaine allergy ruled out, okay to use local anesthetics as needed. -Unclear from history what other medications patient was receiving at the time or that may have triggered his allergic reaction. Anesthesiology involved. (4) Atrial fibrillation: Plan: Paroxysmal A-fib On amiodarone, Eliquis, metoprolol at home Eliquis held, transition to heparin perioperatively for prophylaxis EKG: Reported as junctional however very low amplitude? P waves with consistent [place] appreciated, suspect sinus. Appropriate chronotropic response at bedside. No evidence of RVR Continue amiodarone 200 mg daily, metoprolol 25 mg daily (5) CAD (coronary artery disease): Plan: Hx valve replacements, elevated trop High sensitive troponin 40.5, repeat downtrending, no ischemic changes on EKG Patient uses an exercise bike, rope, bike, weight lifts, and does cardio 3 times a week and with vigorous exercise has had no chest pain or chest pressure. Has some dyspnea which feels appropriate to his level of exercise, notes due to some tracheal narrowing after his intubation he does have a little bit of wheezing with very vigorous exercise but which is not significantly limiting and has not changed in the previous few years. Heart surgery in 2020 was for 3x bad valves. [employer] is Dr. Justin Sood. - Aortic 27mm Tissue Heart Valve [id number] serial No [id number], MR Conditional 3T of less, spatial gradient field less than 3000 gauss/cm, max KUSHAL 2.0 W/kg - Mitral 34mm Annuloplasty band Model 4600, Serial [id number] - Tricuspid implant Tri-Ad 2.0 Greer valave replacemnet Serial [id number], Model [id number] MR Conditional. - Valve replaced by Dr. Dylan Panda MD [phone] at [facility] Denies history of ischemic heart disease, denies history of heart failure Echo reviewed (6) CKD (chronic kidney disease): Plan: History of CKD Baseline creatinine 1.21.6 Creatinine 1.28 on admission. 1 today. Estimated creatinine clearance greater than 60 BMP daily, renally adjust medications as needed Plan Chronic stable issues Severe DANIEL: CPAP nightly DVT prophylaxis: Eliquis transition to heparin pending surgical evaluation CODE STATUS: Full code Diet: Clear liquid diet Admission and Anticipated Discharge Date Admission Date: April 07, 2024 Subjective Patient feels well. Denies chest pain or shortness of breath. Abdominal pain has been improving. Review of Systems Review of Systems: All systems reviewed & are unremarkable except as noted in Subjective Physical Exam Physical Exam: General: Awake, conversant Heart: S1, S2/regular rate and rhythm, no murmur rubs or gallops Lungs: Clear to auscultation bilaterally. Normal effort Abdomen: Soft/nontender/nondistended. No hepatosplenomegaly Extremities: No clubbing/cyanosis. No edema Behavior: Appropriate, cooperative Results & Data Results & Data Vital Signs (Past 12 Hours) Vital Signs Temp Pulse Pulse Resp BP BP Pulse Ox 04/10/24 11:30 36.8 C 51 L 18 167/76 H 96 04/10/24 08:00 04/10/24 07:00 36.6 C 50 L 18 162/75 H 94 04/10/24 07:00 50 L 04/10/24 03:19 36.6 C 54 L 18 139/73 97 04/10/24 01:16 O2 Del Method O2 Flow Rate 04/10/24 11:30 Room Air 04/10/24 08:00 Room Air 04/10/24 07:00 BiPAP 2 04/10/24 07:00 04/10/24 03:19 CPAP 04/10/24 01:16 Room Air Laboratory Results Abnormal lab results 04/10/24 Range/Units 07:40 RBC 3.84 L (4.70-6.10) M/uL Hgb 12.2 L (14.0-18.0) g/dl Hct 35.0 L (42.0-52.0) % Lymph # (Auto) 0.80 L (1.20-3.40) K/uL [place] # (Auto) 1.04 H (0.11-0.59) K/uL Heparin Anti-Xa, Unfract 0.23 L (0.3-0.7) IU/ml Sodium 135 L (136-145) mmol/L Glucose 103 H (70-99(Fasting)) mg/dl Calcium 7.7 L (8.6-10.3) mg/dl Total Bilirubin 1.3 H (0.2-1.0) mg/dl Total Protein 5.0 L (6.0-8.3) gm/dl Albumin 2.8 L (3.4-5.0) gm/dl Globulin 2.2 L (2.5-4.0) gm/dl PG Care Time/CCT Total # of Minutes Spent Total Time Spent with Patient: Total time spent is greater than 50% in coordination of care (as documented) at patient's floor/unit and/or counseling patient: Coding Level of Care Code 71840 SUB INP/OBS CARE 2/35MIN Diagnoses Cholecystitis, acute K81.0 COVID-19 U07.1 Drug-induced hypersensitivity reaction T78.40XA Atrial fibrillation I48.91 CAD (coronary artery disease) I25.10 CKD (chronic kidney disease) N18.9
[2024-04-10 16:26] LABS: Partial Thromboplastin Ratio 1.4; Partial Thromboplastin Time 37 Seconds (21-31)
[2024-04-10 23:32] LABS: ANTI-Xa, UFH(UnfractionatedHep 0.23 IU/ml (0.3-0.7)
[2024-04-11 07:48] LABS: Basophils # (auto) 0.01 K/uL (0.00-0.20); Basophils % (auto) 0.1 %; Hematocrit (blood only) 34.8 % (42.0-52.0); Hemoglobin 11.8 g/dl (14.0-18.0); Immature Granulocytes # (auto) 0.05 K/uL (0.01-0.20); Immature Granulocytes % (auto) 0.4 %; Lymphocytes # (auto) 0.59 K/uL (1.20-3.40); Lymphocytes % (auto) 4.7 %; Mean Corpuscular Hemoglobin 30.8 pg (25.0-34.0); Mean Corpuscular Hgb Conc 33.9 g/dL (32.0-36.0); Mean Corpuscular Volume 90.9 fL (80.0-100.0); Monocytes # (auto) 0.81 K/uL (0.11-0.59); Monocytes % (auto) 6.4 %; Neutrophils # (auto) 11.13 K/uL (1.40-6.50); Neutrophils % (auto) 88.4 %; Platelet Count 135 K/uL (130-400); RDW Coefficient of Variation 13.5 % (11.5-14.5); RDW Standard Deviation 45.1 fL (36.4-46.3); Red Blood Count 3.83 M/uL (4.70-6.10); White Blood Count 12.59 K/ul (4.8-10.8)
[2024-04-11 08:20] LABS: ANTI-Xa, UFH(UnfractionatedHep 0.19 IU/ml (0.3-0.7)
[2024-04-11] MEDS: HEPARIN SOD (PORCINE) 1000 UNIT/ML IV ONE (09:16)
--- NOTE | 2024-04-11 11:07 | Surgery Progress Note ---
Date of Service April 11, 2024 Assessment & Plan (1) Cholecystitis, acute: Plan: clinically better however wbc bumped again today. pt for perc dolores tube tomorrow. pt not really a candidate for surgery. will monitor from background. call if any questions. (2) Bacteremia: (3) Paroxysmal atrial fibrillation: (4) Aortic valve disorder: (5) Mitral valve disorder: Admission and Anticipated Discharge Date Admission Date: April 07, 2024 Subjective pt seen. feeling ok. no pain currently. Physical Exam Constitutional: WD/WN, vitals as above no acute distress and not ill appearing Eyes: PERRL, conjunctivae normal, anicteric sclerae EOM intact bilaterally ENMT: external ear and nose normal, oropharynx normal Ears: no hearing impairment Neck: trachea midline, no thyromegaly Respiratory: normal respiratory effort; no respiratory distress and does not use accessory muscles Cardiovascular: Rate/Rhythm: regular rate and regular rhythm Gastrointestinal (Abdomen): normal bowel sounds, soft, nontender, no hepat osplenomegaly Skin: no rashes, warm and dry Psychiatric: Orientation: alert, oriented x 3 and cooperative Results & Data Vital Signs (Past 12 Hours) Vital Signs Temp Pulse Pulse Resp BP BP Pulse Ox 04/11/24 08:51 36.8 C 51 L 15 111/64 94 04/11/24 07:00 53 L 04/11/24 03:40 36.9 C 58 L 18 152/81 H 98 04/11/24 01:27 O2 Del Method 04/11/24 08:51 Room Air 04/11/24 07:00 04/11/24 03:40 CPAP 04/11/24 01:27 Room Air PG Care Time/CCT Total # of Minutes Spent Total Time Spent with Patient: Total time spent is greater than 50% in coordination of care (as documented) at patient's floor/unit and/or counseling patient: Coding Level of Care Code 19700 SUB INP/OBS CARE 10/29MIN Diagnoses Cholecystitis, acute K81.0 Bacteremia R78.81 Paroxysmal atrial fibrillation I48.0 Aortic valve disorder I35.9 Mitral valve disorder I05.9
--- NOTE | 2024-04-11 12:15 | Hospitalist Progress Note ---
Date of Service April 11, 2024 Assessment & Plan (1) Cholecystitis, acute: Plan: ? Cholecystitis with bacteremia Has been seen as outpatient several times for suspected cholecystitis, last seen by [facility] 02/22/2024 and follow-up HIDA was recommended. Surgery was not performed due to history of anesthesia reaction and risk at that time Was seen at [facility] for right upper quadrant pain. Patient left AMA from OSH, subsequent blood cultures were positive and was recommended to come to [facility] where he was pending surgical consultation several weeks for further care as to high surgical risk for [facility] due to his history of anesthesia reaction Patient reported he had not been on any antibiotics in the previous few weeks, received a dose of cefepime at [facility] but otherwise had not been on antibiotics CTA/P from 04/06/2024 at [facility] reviewed: Cholelithiasis with moderate gallbladder distention. OSH 3/4 blood cultures positive for gram-negative rods. While at OSH lactate went from 2.63.6, patient did leave AMA and general surgery was not available at that facility for consultation. He received cefepime/Flagyl/vancomycin while in the ER at that time. HIDA scan 03/23 showed biliary dyskinesia with EF of 12%. I called micro lab at [facility] 04/09. Blood cultures were positive for E. coli that was pansensitive. Currently the patient is on ceftriaxone and Flagyl HIDA scan concerning for acute cholecystitis Surgery on board. Anesthesiology on board. Cardiology preop evaluation completed. Surgery decided on IR guided percutaneous cholecystostomy tube placement tomorrow 04/12. Order was placed. Eliquis A-fib stroke prophylaxis held, transition to heparin Noted that his white count went up today 04/11. However he does not note any change in pain level. No fever. 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 Patient had been ordered vancomycin but this had not yet been infused at the time. He was treated with epinephrine, vasopressin, hydrocortisone, Benadryl, Pepcid with subsequent improvement over 10-20 minutes, tryptase level drawn at the time was elevated at 13.9. Followed up with allergy 07/2023. Skin testing to rocuronium/lidocaine/p ropofol/fentanyl/Versed were negative. No culprit drug was identified. Was recommended to select alternative anesthetic agents to what he had received during his surgery. Cisatracurium with lowest cross-reactivity and recommended for use over rocuronium if possible. No clear good alternative for other medications, 10% challenge dose followed by full dose in OR if could be performed. Lidocaine allergy ruled out, okay to use local anesthetics as needed. -Unclear from history what other medications patient was receiving at the time or that may have triggered his allergic reaction. Anesthesiology involved. (4) Atrial fibrillation: Plan: Paroxysmal A-fib On amiodarone, Eliquis, metoprolol at home Eliquis held, transition to heparin perioperatively for prophylaxis EKG: Reported as junctional however very low amplitude? P waves with consistent [place] appreciated, suspect sinus. Appropriate chronotropic response at bedside. No evidence of RVR Continue amiodarone 200 mg daily, metoprolol 25 mg daily (5) CAD (coronary artery disease): Plan: Hx valve replacements, elevated trop High sensitive troponin 40.5, repeat downtrending, no ischemic changes on EKG Patient uses an exercise bike, rope, bike, weight lifts, and does cardio 3 times a week and with vigorous exercise has had no chest pain or chest pressure. Has some dyspnea which feels appropriate to his level of exercise, notes due to some tracheal narrowing after his intubation he does have a little bit of wheezing with very vigorous exercise but which is not significantly limiting and has not changed in the previous few years. Heart surgery in 2020 was for 3x bad valves. Health Sciences Department Chair is Dr. Justin Sood. - Aortic 27mm Tissue Heart Valve [id number] serial No [id number], MR Conditional 3T of less, spatial gradient field less than 3000 gauss/cm, max KUSHAL 2.0 W/kg - Mitral 34mm Annuloplasty band Model 4600, Serial [id number] - Tricuspid implant Tri-Ad 2.0 Greer valave replacemnet Serial [id number], Model [id number] MR Conditional. - Valve replaced by Dr. Dylan Panda MD [phone] at [facility] Denies history of ischemic heart disease, denies history of heart failure Echo reviewed Cardiology preop evaluation was completed. (6) CKD (chronic kidney disease): Plan: History of CKD Baseline creatinine 1.21.6 Creatinine 1.28 on admission. Stable Estimated creatinine clearance greater than 60 BMP daily, renally adjust medications as needed Plan Chronic stable issues Severe DANIEL: CPAP nightly DVT prophylaxis: Eliquis transition to heparin pending procedures CODE STATUS: Full code Diet: N.p.o. postmidnight Admission and Anticipated Discharge Date Admission Date: April 07, 2024 Subjective Patient does not have any new complaints. Does not feel any different. Denies chest pain or shortness of breath. Review of Systems Review of Systems: All systems reviewed & are unremarkable except as noted in Subjective Physical Exam Physical Exam: General: Awake, conversant Heart: S1, S2/regular rate and rhythm, no murmur rubs or gallops Lungs: Clear to auscultation bilaterally. Normal effort Abdomen: Soft/nontender/nondistended. No hepatosplenomegaly Extremities: No clubbing/cyanosis. No edema Behavior: Appropriate, cooperative Results & Data Results & Data Vital Signs (Past 12 Hours) Vital Signs Temp Pulse Pulse Resp BP BP Pulse Ox 04/11/24 11:45 36.7 C 46 L 18 107/58 L 97 04/11/24 08:51 36.8 C 51 L 15 111/64 94 04/11/24 07:00 53 L 04/11/24 03:40 36.9 C 58 L 18 152/81 H 98 04/11/24 01:27 O2 Del Method 04/11/24 11:45 Room Air 04/11/24 08:51 Room Air 04/11/24 07:00 04/11/24 03:40 CPAP 04/11/24 01:27 Room Air Laboratory Results Abnormal lab results 04/10/24 04/10/24 04/11/24 Range/Units 15:23 22:36 07:06 WBC 12.59 H (4.8-10.8) K/ul RBC 3.83 L (4.70-6.10) M/uL Hgb 11.8 L (14.0-18.0) g/dl Hct 34.8 L (42.0-52.0) % Neut # (Auto) 11.13 H (1.40-6.50) K/uL Lymph # (Auto) 0.59 L (1.20-3.40) K/uL Elk # (Auto) 0.81 H (0.11-0.59) K/uL APTT 37 H (21-31) Seconds Heparin Anti-Xa, Unfract 0.20 L 0.23 L 0.19 L (0.3-0.7) IU/ml PG Care Time/CCT Total # of Minutes Spent Total Time Spent with Patient: Total time spent is greater than 50% in coordination of care (as documented) at patient's floor/unit and/or counseling patient: Coding Level of Care Code 45946 SUB INP/OBS CARE 2/35MIN Diagnoses Cholecystitis, acute K81.0 COVID-19 U07.1 Drug-induced hypersensitivity reaction T78.40XA Atrial fibrillation I48.91 CAD (coronary artery disease) I25.10 CKD (chronic kidney disease) N18.9
[2024-04-11 16:12] LABS: ANTI-Xa, UFH(UnfractionatedHep 0.27 IU/ml (0.3-0.7)
[2024-04-11 23:24] LABS: ANTI-Xa, UFH(UnfractionatedHep 0.17 IU/ml (0.3-0.7)
[2024-04-12] MEDS: HEPARIN SOD (PORCINE) 1000 UNIT/ML IV ONE (00:08)
[2024-04-12] MEDS ORDERED: [UNRECOGNIZED DRUG - REMARK] ONE (04:00)
[2024-04-12 06:25] LABS: BUN Creatinine Ratio 12.8 (10-20); Calcium 7.5 mg/dl (8.6-10.3); Creatinine Clr Calc Pharmacy 75.8 ml/min; Est GFR (African American) 71.3 ml/min; Est GFR (Non-African American) 61.5 ml/min; Potassium 3.5 mmol/L (3.5-5.1)
[2024-04-12 06:26] LABS: ANTI-Xa, UFH(UnfractionatedHep 0.21 IU/ml (0.3-0.7)
[2024-04-12] MEDS: [UNRECOGNIZED DRUG - REMARK] ONE (07:33)
--- NOTE | 2024-04-12 13:06 | Hospitalist Progress Note ---
Date of Service April 12, 2024 Assessment & Plan (1) Cholecystitis, acute: Plan: Appreciate GI consultation and recommendations and also anesthesia evaluation. He is awaiting cholecystostomy tube placement later today, April 12. Eventually in the near future he will need laparoscopic cholecystectomy. Rocuronium will be avoided per anesthesiology recommendations during the next general anesthesia. Continue intravenous Rocephin for now. 1 out of 4 blood cultures positive on April 07 with bacillus is probably a contaminant. Repeat blood culture has been ordered today, April 12. (2) COVID-19: Plan: COVID-positive by nasal swab. He is currently asymptomatic. (3) Drug-induced hypersensitivity reaction: Plan: Appreciate anesthesiology evaluation and recommendations. Rocuronium will be avoided during the next general anesthesia. He received a multitude of different intravenous medications which could have caused the anaphylactic reaction. (4) Atrial fibrillation: Plan: Chronic. Currently rate controlled. Eliquis is currently on hold. He was transition to a heparin drip due to his history of mechanical heart valve replacement and mitral valve repair. (5) CAD (coronary artery disease): Plan: Stable. Continue current medical management. Troponin was mildly elevated but no evidence of acute coronary syndrome. Cardiac echo reveals satisfactory valve function and normal ejection fraction. (6) CKD (chronic kidney disease): Plan: Stage III. Monitor intake and output. Serial labs Plan Hopeful discharge to home within the next day or 2 Admission and Anticipated Discharge Date Admission Date: April 07, 2024 Subjective Alert and oriented. No distress. He is awaiting cholecystostomy tube placement today, April 12. Anesthesia entry noted. If he requires anesthesia again, rocuronium will be avoided. However, his allergic reaction could have been from a multitude of other entities. Eliquis is on hold. He remains on intravenous Rocephin and IV fluids. He is currently NPO. Diet will be restarted after the cholecystostomy tube is placed. Review of Systems 2 Review of Systems: Constitutional-no fever or chills ENT-no blurred vision, no double vision, no epistaxis, no sore throat Respiratory-no cough, no wheezing, no shortness of breath Cardiac-no palpitations, no chest pain, no syncope GI-no nausea, vomiting, diarrhea, melena, hematochezia -no urinary retention, no urinary incontinence, no dysuria, no hematuria Musculoskeletal-no joint pain, no muscle tenderness Skin-no bruising, no rashes, no pruritus Neuro-no isolated weakness, no paresthesia, no weakness Psych-no depression, no anxiety Physical Exam 2 Physical Exam: General-alert and oriented x3, no fever, no chills HEENT-head atraumatic and normocephalic, pupils equal and reactive to light, extraocular muscles intact Neck-no lymphadenopathy or thyromegaly, trachea midline Chest-clear to auscultation. No rales, wheezing or rhonchi Cardiac-regular rate and rhythm, normal S1 and S2 Abdomen-normal bowel sounds, no hepatosplenomegaly. Tender to deep palpation in the right upper quadrant. No rebound or guarding Extremities-no cyanosis, clubbing, or edema Neuro-cranial nerves II through XII intact, motor and sensory function within normal limits, strength symmetrical, no focal deficits Psych-normal affect, normal mood Results & Data Results & Data Vital Signs (Past 12 Hours) Vital Signs Temp Pulse Pulse Resp BP BP Pulse Ox 04/12/24 12:47 36.7 C 57 L 16 144/70 H 95 04/12/24 07:30 36.5 C 53 L 18 136/73 96 04/12/24 07:30 04/12/24 07:00 54 L 04/12/24 03:21 36.4 C L 04/12/24 02:49 37.2 C 53 L 18 119/66 96 O2 Del Method 04/12/24 12:47 Room Air 04/12/24 07:30 Room Air 04/12/24 07:30 Room Air 04/12/24 07:00 04/12/24 03:21 04/12/24 02:49 CPAP Laboratory Results 04/11/24 07:06 04/12/24 05:32 PG Care Time/CCT Total # of Minutes Spent Total Time Spent with Patient: Total time spent is greater than 50% in coordination of care (as documented) at patient's floor/unit and/or counseling patient: Coding Level of Care Code 90755 SUB INP/OBS CARE 3/50MIN Diagnoses Cholecystitis, acute K81.0 COVID-19 U07.1 Drug-induced hypersensitivity reaction T78.40XA Atrial fibrillation I48.91 CAD (coronary artery disease) I25.10 CKD (chronic kidney disease) N18.9
--- NOTE | 2024-04-12 14:46 | Ultrasound Report ---
Ultrasound-guided cholecystostomy tube placement INDICATION: Acute cholecystitis; Covid positive PROCEDURE: Procedure and risks were explained. Informed consent was obtained. A final timeout was com pleted. The abdomen was prepped and draped in sterile fashion. 1% lidocaine was utilized for skin ane sthesia. Utilizing ultrasound guidance, an 18-gauge Chiba needle was advanced into through a small anterior we dge of liver into the distended gallbladder. A 0.035 Amplatz wire was introduced through the entry ne edle and exchanged for an 8 Beninese locking pigtail catheter. Approximately 20 mL of gallbladder fluid was removed and sent to the lab for analysis. The pigtail catheter was sutured to the skin with 2-0 silk and placed to gravity bag drainage. The patient tolerated the procedure well. Vital signs will b e monitored on the floor. IMPRESSION: Cholecystostomy tube placement as above. Performed, dictated, and signed by Edwin Bonilla PA-C; to be co-signed by Dr. Neil Andrews. Electronically signed by: Neil Andrews M.D. 04/12/2024 4:05 PM
[2024-04-12] MEDS: fentaNYL citrate PF 100 MCG/2 ML VIAL ONE (17:05)
[2024-04-13 03:37] LABS: Albumin Globulin Ratio 1.3 (0.9-2); Albumin Level 2.8 gm/dl (3.4-5.0); Bilirubin,Total 0.9 mg/dl (0.2-1.0); Calcium 7.9 mg/dl (8.6-10.3); Creatinine Clr Calc Pharmacy 88.7 ml/min; Est GFR (African American) 86.2 ml/min; Est GFR (Non-African American) 74.3 ml/min; Globulin 2.1 gm/dl (2.5-4.0); Potassium 3.6 mmol/L (3.5-5.1); Total Protein 4.9 gm/dl (6.0-8.3)
[2024-04-13 03:52] LABS: Basophils # (auto) 0.01 K/uL (0.00-0.20); Basophils % (auto) 0.2 %; Eosinophils # (auto) 0.04 K/uL (0.00-0.50); Eosinophils % (auto) 0.9 %; Hematocrit (blood only) 33.4 % (42.0-52.0); Hemoglobin 11.4 g/dl (14.0-18.0); Immature Granulocytes # (auto) 0.06 K/uL (0.01-0.20); Immature Granulocytes % (auto) 1.3 %; Lymphocytes # (auto) 0.67 K/uL (1.20-3.40); Lymphocytes % (auto) 14.9 %; Mean Corpuscular Hemoglobin 30.7 pg (25.0-34.0); Mean Corpuscular Hgb Conc 34.1 g/dL (32.0-36.0); Mean Platelet Volume 10.1 fL (9.4-12.4); Monocytes # (auto) 0.56 K/uL (0.11-0.59); Monocytes % (auto) 12.4 %; Neutrophils # (auto) 3.16 K/uL (1.40-6.50); Neutrophils % (auto) 70.3 %; Platelet Count 156 K/uL (130-400); RDW Coefficient of Variation 13.7 % (11.5-14.5); RDW Standard Deviation 45.3 fL (36.4-46.3); Red Blood Count 3.71 M/uL (4.70-6.10)
[2024-04-13 03:55] LABS: ANTI-Xa, UFH(UnfractionatedHep 0.16 IU/ml (0.3-0.7)
[2024-04-13] MEDS: HEPARIN SOD (PORCINE) 1000 UNIT/ML IV ONE (04:32)
[2024-04-13 07:59] VITALS: BP 145/73; RESP 15; TEMP 98.1; O2SAT 94
--- NOTE | 2024-04-13 09:53 | Discharge Summary ---
Date of Service April 13, 2024 Admission HPI Per Admitting Provider Mika is a 73-year-old male with past medical history of A-fib on metoprolol/amiodarone/warfarin aortic stenosis, obesity, GERD, sleep apnea, anaphylactic reaction to local anesthetics with subsequent skin testing to ro curonium/lidocaine/propofol/Versed/fentanyl which was negative as outpatient, CKD with baseline creatinine 1.21.6 who was seen at [facility] this past week for right upper quadrant pain thought to be due to his gallbladder. Patient was discharged home however was instructed to go to the hospital due to positive blood cultures suspected of biliary origin. Patient was instructed to go to [facility] rather than [facility] as their facility was not able to perform surgical management due to his cardiac history. Ultrasound: Gallbladder edema with negative Mattson sign Chest x-ray: No acute finding Leukocytosis, T. bili 0.3, no AST/ALT elevation, alk phos 108 At bedtimetroponin 40.5, repeat pending EKG: Sinus. Reported as junctional however low amplitude P waves with consistent TX are appreciated. No ST segment elevations or T wave inversion [facility] note review: Seen 02/22/2024. Seen posthospitalization for acute cholecystitis. Surgery not performed due to anesthesia risk and history of allergic reaction. At that time was recommended to follow-up for HIDA, with additional CT/ultrasound follow-up depending on this. Mika is seen at the bedside with his at bedside Reports he has had 4 'gallbladder attacks' in the last few weeks lasting 20-30 minutes Went to [facility] yesterday due to RUQ pain after meals. No pain at time of assessment FEver/chills/sweats sweats yesterday mild cough with dark yellow sputum production x24 hours No nausea/vomiting. No diarrhea/constipation. Dark stool with iron, no melena/b leeding Meals do cause his RUQ pain to increase/worsen, has happened 4x in the last month. Always with fatty food. No pain at time of admission. First time ramona rivero was seen was early March of this past year. Initially was going to take the gallbladder out; however, he had heart surgery in Nov 2019 and had a severe reaction to anesthesia with 2 weeks of coma subsequently. He was referred to Dr. Stoner for surgical evaluation, but that was pending for April 26. He went ot [facility] yesterday due to pain. Also has a restricted/narrow airway related to prolonged intubation during his heart proceder Heart surgery in 2019 was for 3x bad valves. Violin Teacher is Dr. Justin Sood. - Aortic 27mm Tissue Heart Valve [id number] serial No [id number], MR Conditional 3T of less, spatial gradient field less than 3000 gauss/cm, max KUSHAL 2.0 W/kg - Mitral 34mm Annuloplasty band Model 4600, Serial [id number] -= Tricuspid implant Tri-Ad 2.0 Greer valave replacemnet Serial [id number], Model [id number] MR Conditional. - Valve replaced by Dr. Dylan Panda MD [phone] at [facility] No history of heart attacks. Had a heart cath prior to valve replacement, reportedly normal No chest pain. Exercises 3x per week, rowing machine and walking and sometimes recumband bike and weight lifting. no chest pain or significant dyspnea. Has had more dyspnea going up inclines, but overall tolerates exercise well. Does note some wheezing with his restricted airway, this improved with intentional weight loss since 2019. Allergies: PCN childhood, complex anesthesia rxn with subsequent coma as noted Cigars and Pipe tobacco daily, 1x per day, x5 years. Declines nicotine patch Denies etoh use Denies recreational drug use Took all medications including eliquis this morning Code Status: Full Code Principal Diagnosis Acute cholecystitis, asymptomatic COVID positivity by nasal swab Discharge Exam General-alert and oriented x3, no fever, no chills HEENT-head atraumatic and normocephalic, pupils equal and reactive to light, extraocular muscles intact Neck-no lymphadenopathy or thyromegaly, trachea midline Chest-clear to auscultation. No rales, wheezing or rhonchi Cardiac-regular rate and rhythm, normal S1 and S2 Abdomen-normal bowel sounds, no hepatosplenomegaly. Cholecystostomy tube is draining slightly sanguinous bilious discolored fluid. No rebound or guarding Extremities-no cyanosis, clubbing, or edema Neuro-cranial nerves II through XII intact, motor and sensory function within normal limits, strength symmetrical, no focal deficits Psych-normal affect, normal mood Discharge Data Allergies Allergy/AdvReac Type Severity Reaction Status Date / Time Penicillins Allergy unk Verified 04/07/24 13:19 Anesthesia AdvReac coma Uncoded 04/07/24 13:20 Consultations 04/07/24 17:37 ED Decision to Admit Stat 04/07/24 18:57 Consult General Surgery Routine 04/08/24 08:43 Consult Cardiology Routine Ordered Studies 04/07/24 11:29 US gallbladder Stat 04/12/24 10:35 IR gallbladder cath placmnt US Routine Hospital Course (1) Cholecystitis, acute: Appreciate GI consultation and recommendations and also anesthesia evaluation. Cholecystostomy tube was placed on April 12. Eventually in the near future he will need laparoscopic cholecystectomy. He will see general surgery next week. Rocuronium will be avoided per anesthesiology recommendations during the next general anesthesia. He was treated while hospitalized with intravenous Rocephin. He will be discharged on Augmentin. (2) COVID-19: COVID-positive by nasal swab. He is currently asymptomatic. (3) Drug-induced hypersensitivity reaction: Appreciate anesthesiology evaluation and recommendations. Rocuronium will be avoided during the next general anesthesia. He received a multitude of different intravenous medications which could have caused the anaphylactic reaction. (4) Atrial fibrillation: Chronic. Currently rate controlled. Eliquis will be restarted today, April 13, and heparin drip discontinued. He was transitioned to a heparin drip due to his history of mechanical heart valve replacement and mitral valve repair. (5) CAD (coronary artery disease): Stable. Continue current medical management. Troponin was mildly elevated but no evidence of acute coronary syndrome. Cardiac echo reveals satisfactory valve function and normal ejection fraction. (6) CKD (chronic kidney disease): Stage III. Monitor intake and output. Serial labs Plan Home today, April 13, on Augmentin. See general surgery next week as scheduled for planning of eventual laparoscopic cholecystectomy Total Time Total Time Spent Total Time Spent (In Minutes): 50 minutes Discharge Plan Discharge Items Patient Disposition: Home - Self-Care Reason For Visit: GN BACTEREMIA, KEERTHI, COVID Discharge Diagnosis: Acute cholecystitis, asymptomatic COVID positivity by nasal swab Activity: Per Instructions section Activity Comment: Avoid overexertion or exercise while cholecystostomy tube is in place Non-emergency contact: Primary Care Provider Call non-emergency contact if: your symptoms worsen Follow-up/Referrals: Teodoro Clement, [Physician] - Bruce Herrera DO [Primary Care Provider] - Diet: Heart Healthy and Low Fat Addtl Attending Provider Instructions: Take ciprofloxacin antibiotic twice daily as directed. See general surgery, Dr. Stoner, next week as scheduled Pending Studies at Discharge: No Stand-Alone Forms: My [facility] [employer], Smoking Cessation Medications and DC Order Prescriptions: New ciprofloxacin HCl [Cipro] 500 mg tablet 500 mg PO BID Qty: 20 0RF Continued multivitamin Tablet 1 tab PO DAILY ascorbic acid (vitamin C) [Vitamin C] 1,000 mg Tablet 1 g PO DAILY amiodarone 200 mg tablet 200 mg PO 3XWK Rx Instructions: Take mon, wed, fri aspirin [Aspir-Low] 81 mg Tablet,Delayed Release (Dr/Ec) 81 mg PO QPM metoprolol tartrate 25 mg tablet 25 mg PO BID ferrous sulfate 324 mg (65 mg iron) Tablet,Delayed Release (Dr/Ec) 0 mg PO 2XWK Rx Instructions: Take thu, thu cholecalciferol (vitamin D3) [Vitamin D3] 50 mcg (2,000 unit) Capsule 100 mcg PO DAILY Eliquis 5 mg tablet 5 mg PO BID Zinc Tab 1 tab PO DAILY Discharge Orders: Discharge Order (Routine); Ordered 04/13/24 Ordered By: Michael Lorenzo Admission Data Admit Date/Time: 04/07/24 14:31 Attending Provider: Michael Lorenzo Admit Provider: Mark Esteves Primary Care Provider: Bruce Herrera Other Providers: Mark Esteves; Teodoro Clement; Chadwick Hanson; Raza Blackmon; David Lyles; Blade Pearl; Rod Talavera; Yvan Guevara Jr; Chano Segovia; Tamar Clark; Sandi Plascencia; Pete Najera; Pete Arnold; Michael Viveros; Dora Onofre; Schuyler Patel; Jana Gee; Jeb Hicks; Dane Driscoll; Toni Pablo; Champ Chacko Coding Level of Care Code 85498 INP/OBS DISCH >30 MIN Diagnoses Cholecystitis, acute K81.0 COVID-19 U07.1 Drug-induced hypersensitivity reaction T78.40XA Atrial fibrillation I48.91 CAD (coronary artery disease) I25.10 CKD (chronic kidney disease) N18.9
[2024-04-13] MEDS: APIXABAN 5 MG TABLET PO SCH (11:11)
[2024-04-13 11:30] VITALS: PULSE 50
== END 2024-04-13 13:26 | disposition home health service (06) | DRG 444 ==
LOC: ED 11:00 → EDINP 14:31 → SUATTDRO 14:31 → 2N 19:50

== ENCOUNTER 2024-04-28 07:12 | Inpatient (IN) ==
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
--- NOTE | 2024-04-28 07:59 | History & Physical Bridge Note ---
Date of Service April 28, 2024 History & Physical Bridge Note I have examined the patient, reviewed the History & Physical and in the interval since the performance of the History & Physical I have noted the following changes of clinical significance: no changes noted permit signed all question answered dark bile in bag
[2024-04-28] MEDS: LR 15ML/HR IV SCH (08:06)
[2024-04-28] MEDS ORDERED: PROPOFOL IV EMULSION 10 MG/ML 20 ML VIAL IV ONE ×4 (08:18→23:10)
[2024-04-28] MEDS ORDERED: MIDAZOLAM HCL 1 MG/ML 2ML VIAL ONE (08:19)
[2024-04-28] MEDS ORDERED: fentaNYL citrate PF 100 MCG/2 ML VIAL ONE (08:20)
[2024-04-28] MEDS ORDERED: CISATRACURIUM BESYLATE IV SOLN 2 MG/ML 10 ML VIAL IV ONE (08:23)
[2024-04-28] MEDS ORDERED: MoRPHine SULFATE 2 MG/ML CARP IV PRN ×3 (08:36→15:12)
[2024-04-28] MEDS ORDERED: ACETAMINOPHEN 325 MG TAB PO PRN (08:36)
[2024-04-28] MEDS ORDERED: oxyCODONE HCL IR 5 MG TAB (IMMEDIATE RELEASE) PO PRN (08:36)
[2024-04-28] MEDS ORDERED: ONDANSETRON INJ 2 MG/ML 2 ML VIAL IV PRN ×2 (08:36→10:06)
[2024-04-28] MEDS ORDERED: DEXAMETHASONE SOD INJ 4 MG/ML VIAL ONE (08:55)
[2024-04-28] MEDS ORDERED: ATROPINE SULFATE 0.4 MG/ML 1 ML VIAL ONE (10:02)
[2024-04-28] MEDS ORDERED: NALOXONE HCL 0.4 MG/1 ML VIAL/CARP IV PRN (10:06)
[2024-04-28] MEDS ORDERED: PHENYLEPHRINE 100MCG/ML 10ML SYR IV ONE (10:06)
[2024-04-28] MEDS ORDERED: FLUMAZENIL 0.1 MG/1 ML 10 ML VIAL IV PRN (10:06)
[2024-04-28] MEDS ORDERED: PROMETHAZINE HCL 6.25 MG in SODIUM CHLORIDE 0.9% 50 ML IV PRN (10:06)
[2024-04-28] MEDS ORDERED: ATROPINE SULFATE 0.1 MG/ML 10ML SYR IV PRN (10:06)
[2024-04-28] MEDS ORDERED: HYDROmorphone INJ 1 MG/ML SYRINGE IV PRN (10:06)
[2024-04-28] MEDS ORDERED: ePHEDrine sulfate 50 MG/ML AMP IV PRN (10:06)
[2024-04-28] MEDS: OPTIRAY 320 100ml INJ ONE (10:23)
[2024-04-28] MEDS: LIDOCAINE 1%/EPINEPHRINE 1:100,000 50 ML VIAL ONE ×2 (10:25)
--- NOTE | 2024-04-28 10:31 | Post Operative Brief Note ---
Immediate Post Op Note Date of Surgery April 28, 2024 Pre & Post Diagnosis Operation Date: 04/28/24 08:50 Pre-Op Diagnosis: Acute Cholecystitis Post-Op Diagnosis: Acute Cholecystitis I identified the patient and participated in the time-out.: Yes Procedure Operation Date: 04/28/24 08:50 Actual Procedures p Laparoscopic Cholecystectomy with Cholangiogram(Not Applicable) - Rex Stoner MD, FACS Surgeon Rex Stoner MD, FACS College Dean Lisa KNIGHT Estimated Blood Loss 50 Findings Consistent with Post-Op Diagnosis Drains Teodoro Drain and [place] Drain
--- NOTE | 2024-04-28 11:00 | Operative Report ---
PG Post Operative Report Pre & Post Diagnosis Operation Date: 04/28/24 08:50 Pre-Op Diagnosis: Acute Cholecystitis Post-Op Diagnosis: Acute Cholecystitis I identified the patient and participated in the time-out.: Yes Procedure Operation Date: 04/28/24 08:50 Actual Procedures p Laparoscopic Cholecystectomy with Cholangiogram(Not Applicable) - Rex Stoner MD, FACS The patient was brought into the operating theater general endotracheal anesthesia the abdomen was prepped Betadine solution properly draped timeout was had the patient identified the patient had been on Cipro at home up to the day before surgery therefore we did not give any antibiotics at this time made a small incision supraumbilically sufficient enough to accommodate a Veress needle followed by 5 mm trocar the patient had a very lax abdominal wall therefore we kept intra-abdominal pressure about 12 and that gave us enough a field to operate without any difficulty and direct visualization we placed a 5 mm epigastric port identify the patient has some adhesions omental in nature from the anterior surface of the gallbladder to the abdominal wall and we can visualize the transhepatic cholecystostomy tube there was no evidence of any intra-abdominal bilious fluid the wall of the gallbladder was extremely thick walled cyst that we could easily appreciated but not ischemic grossly we placed two 5 mm subcostal ports with preemptive local analgesic at this point we left the catheter in place elevated the gallbladder from its fundus more towards the neck which was very hard to dissect out as it was thick walled significant amount of fatty tissue was adherent to the gallbladder some omental in nature somewhat were taken down by sharp dissection large graspers were used to grab the gallbladder and elevating it we worked our way towards the neck of the gallbladder this was easily appreciated at this point the dissection was family difficulty and I elected to use a cholecystostomy tube an x-ray was taken which showed a very distended gallbladder and thickened and actually to see a cystic duct which was quite redundant and corkscrew in appearance of the see the common bile duct there were no filling defects and flow into the duodenum we used one of the graspers to tran the neck of the gallbladder to identify where we were anatomically severe away from the common bile duct and this helped considerably once this had been performed we then continued our dissection which was very tedious thick walled eventually were able to identify a structure that I thought was initially a cystic duct and as we freed that up I cannot identify any duct per se but coming from the fundus the gallbladder there was a little drainage therefore I think we were dividing the takeoff of the cystic duct from the fundus of the gallbladder and the tissue we doubly clipped. We then worked our way more cephalad and identified another structure that initially thought may have been the cystic duct placed the catheter in the area and we agreed to do a cholangiogram when we aspirated and it was actually the artery that we had very little bleeding therefore we doubly clipped the artery and divided it then the gallbladder was taken out in antegrade fashion using significant mount of dissection and electrocautery the wall as stated was extremely thick. Once we were near the top of the gallbladder cut the cholecystostomy tube then brought it out intra-abdominal area we were able to retrieve it and remove it the gallbladder was then taken off completely off the liver placed in an Endopouch and taken through the epigastric port port that we had increased to a 12 mm size. The subhepatic suprahepatic area was then suctioned copiously and appears satisfactory there was no evidence of any leak of any bilious in nature we elected to inject the area with a 19 round Teodoro drain coming and subcostally medially and taken out the right upper quadrant lateral site such as skin edge with 2-0 silk the abdomen was then inspected prior to placing the drain we placed the camera right upper quadrant trocar to visualize her initial entry in the abdomen which was no adhesions identified 0 Vicryl suture was used to close the fascia in the epigastric area and 4-0 Monocryl procedure was tolerated well by the patient estimated blood loss 50 cc The gallbladder was sent for cultures Kaya Hardy physician special ed assistant was present throughout the case and helped the retraction exposure wound closure Talked with his Fide in the waiting area Surgeon Rex Stoner MD, FACS Director Of Analytics Lisa KNIGHT Estimated Blood Loss 50 Findings Consistent with Post-Op Diagnosis Chronic cholecystitis cholelithiasis Specimens Gallbladder and common Complications Poor suction device I dissection very difficult Indications Acute cholecystitis cholelithiasis status post cholecystostomy tube Description of Procedure merda I attest to the content of the Intraoperative Record and any orders documented therein. Any exceptions are noted below.
--- NOTE | 2024-04-28 11:03 | Fluoroscopy Report ---
INTRAOPERATIVE CHOLANGIOGRAM HISTORY: Post cholecystectomy. FLUOROSCOPY TIME: 8 seconds.. 2 fluoroscopic spot images of the right upper quadrant. Ka,r: 1.3 mGy FINDINGS: Fluoroscopy was provided for an intraoperative cholangiogram. Contrast was injected through the indwelling cholecystostomy tube. The common bile duct is normal in course and caliber. There are no filling defects seen within the common bile duct to suggest a retained stone. Contrast extends i nto the small bowel. There is incomplete filling of the cystic duct. Therefore, small filling defects /stones within the cystic duct are not excluded. However, these are nonobstructive as contrast extend s into the common bile duct. Therefore, this could represent gas bubbles. IMPRESSION: 1. No filling defects within the common bile duct. 2. Contrast extends into the small bowel. 3. There is incomplete filling of the cystic duct. Therefore, small filling defects/stones within the cystic duct are not excluded. However, these are nonobstructive as contrast extends into the common bile duct. Therefore, this could represent gas bubbles. ACT 112: Negative or not required by law. Electronically signed by: Neil Andrews M.D. 04/28/2024 11:02 AM
[2024-04-28] MEDS: fentaNYL citrate PF 100 MCG/2 ML VIAL IV PRN (11:07)
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
--- NOTE | 2024-04-28 12:01 | Anesthesiology Progress Note ---
Date of Service April 28, 2024 Anesthesia Post Procedure Vital Signs Vital Signs: Temp Pulse Pulse Resp BP Pulse Ox O2 Del Method 04/28/24 11:35 46 L 15 151/70 H 96 Room Air 04/28/24 11:25 44 L 12 136/65 94 Room Air 04/28/24 11:15 45 L 14 142/67 H 97 Room Air 04/28/24 11:05 44 L 14 151/70 H 96 Room Air 04/28/24 10:55 44 L 14 143/63 H 99 Room Air 04/28/24 10:45 36.0 C L 44 L 19 170/81 H 97 Room Air 04/28/24 07:51 36.6 C 49 L 20 153/71 H 100 Room Air Pain Intensity Abdomen: Pain Intensity: 3 Transfer of Care Handoff Completed per policy Notes Mental Status: alert / awake / arousable Patient Amnestic to Procedure: Yes Nausea / Vomiting: adequately controlled Pain: adequately controlled Airway Patency, RR, SpO2: stable & adequate BP & HR: stable & adequate Hydration State: stable & adequate Anesthetic Complications: no major complications apparent
[2024-04-28] MEDS: MoRPHine SULFATE 4 MG/ML 1 ML CARP\\VIAL IV PRN (12:52)
[2024-04-28 14:48] LABS: Basophils # (auto) 0.02 K/uL (0.00-0.20); Basophils % (auto) 0.3 %; Hematocrit (blood only) 31.2 % (42.0-52.0); Hemoglobin 10.4 g/dl (14.0-18.0); Immature Granulocytes # (auto) 0.04 K/uL (0.01-0.20); Immature Granulocytes % (auto) 0.6 %; Lymphocytes # (auto) 0.77 K/uL (1.20-3.40); Lymphocytes % (auto) 10.7 %; Mean Corpuscular Hemoglobin 30.7 pg (25.0-34.0); Mean Corpuscular Hgb Conc 33.3 g/dL (32.0-36.0); Mean Platelet Volume 9.3 fL (9.4-12.4); Monocytes # (auto) 0.07 K/uL (0.11-0.59); Neutrophils # (auto) 6.33 K/uL (1.40-6.50); Neutrophils % (auto) 87.4 %; Platelet Count 260 K/uL (130-400); RDW Coefficient of Variation 13.7 % (11.5-14.5); RDW Standard Deviation 46.5 fL (36.4-46.3); Red Blood Count 3.39 M/uL (4.70-6.10); White Blood Count 7.23 K/ul (4.8-10.8)
[2024-04-28] MEDS ORDERED: SODIUM CHLORIDE 0.9% 250 ML IV PRN ×3 (14:50→16:43)
[2024-04-28] MEDS: LACTATED RINGER'S 1,000 ML IV SCH (14:59)
[2024-04-28] MEDS: SODIUM CHLORIDE 0.9% 1,000 ML IV ONE (14:59)
--- NOTE | 2024-04-28 15:14 | Communication Note ---
Date of Service: April 28, 2024 Responded to overhead [employer] that was paged around 2:20pm for hypotension. SBP was in the 50's and patient experienced feelings of some light headedness and dizziness. Upon examination patient was in Trendelenburg with 1L bolus infusing, EKG and blood work being obtained. Patient reports feeling a bit better and no further lightheadedness/dizziness at this point. He has expected post operative soreness and discomfort. Mild nausea. Denies CP/SOB. Last narcotic administration was 4mg Morphine at 12:52. On exam he is mentating well, abdomen is soft, non distended, incisions c/d/i with steri strips. The ARLEY drain is putting out a thin sanguinous drainage. Upon my arrival it was emptied for about 180cc since post op and then it was subsequently emptied thereafter for almost another 200cc while I was up on the floor. Since transfer to the PCU the ARLEY output seems to have slowed down. It is likely a mix the remaining irrigant used intraop with some blood. Hbg returned at 10.4 from 11.4 on 04/13/24. HRs in the 50's and BP is now improving to 90's/50s with IVF. Appreciate the hospitalists assistance with the patient given his history. He has been transferred to the PCU for close monitoring. Blood consent in the chart if needed. I did notify my attending Dr. Stoner who came and evaluated the patient and agrees with close monitoring and supportive care.
[2024-04-28 15:24] LABS: BUN Creatinine Ratio 16.4 (10-20); Calcium 8.7 mg/dl (8.6-10.3); Creatinine Clr Calc Pharmacy 62.6 ml/min; Est GFR (African American) 57.4 ml/min; Est GFR (Non-African American) 49.5 ml/min; Potassium 4.2 mmol/L (3.5-5.1)
[2024-04-28] MEDS: SODIUM CHLORIDE 0.9% 500 ML IV ONE (15:40)
[2024-04-28] MEDS ORDERED: STAT IV Infusion **Titration per Protocol STA ×2 (16:56→17:49)
[2024-04-28] MEDS: CIPROFLOXACIN / D5W 400 MG/200 ML BAG IV SCH (17:04)
[2024-04-28] MEDS: NOREPINEPHRINE/D5W 4 MG/250 ML PLCT IV SCH (17:11)
--- NOTE | 2024-04-28 17:11 | Electrocardiogram Report ---
Test Reason : Blood Pressure : / mmHG Vent. Rate : 054 BPM Atrial Rate : 054 BPM P-R Int : 250 ms QRS Dur : 114 ms QT Int : 542 ms P-R-T Axes : 082 -49 026 degrees QTc Int : 513 ms Sinus bradycardia with 1st degree A-V block Pulmonary disease pattern Left anterior fascicular block Prolonged QT Abnormal ECG When compared with ECG of 07-APR-2024 11:49, No significant change was found Confirmed by Raza Blackmon ([id number]) on 04/28/2024 5:11:30 PM Referred By: Rex Stoner Confirmed By:Raza Blackmon
[2024-04-28] MEDS ORDERED: HYDROCORTISONE SOD 200 MG in SYRINGE 0 ML IV STA (17:49)
[2024-04-28 17:55] LABS: Hematocrit (blood only) 28.6 % (42.0-52.0); Hemoglobin 9.5 g/dl (14.0-18.0)
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
[2024-04-28] MEDS: HYDROCORTISONE SOD SUCCINATE 100 MG/2 ML VIAL ONE (18:14)
[2024-04-28] MEDS: VASOPRESSIN 20 UNITS in 0.9 % SODIUM CHLORIDE 100 ML IV SCH (18:15)
[2024-04-28] MEDS: HYDROCORTISONE SOD SUCCINATE 100 MG/2 ML VIAL IV ONE (18:15)
[2024-04-28] MEDS: metroNIDAZOLE 500 MG/100 ML BAG IV SCH (18:33)
[2024-04-28] MEDS: SODIUM CHLORIDE 0.9% 1,000 ML IV SCH (19:26)
[2024-04-28] MEDS: oxyCODONE HCL IR 5 MG TAB (IMMEDIATE RELEASE) PO PRN (19:39)
[2024-04-28] MEDS: PANTOprazole 40 MG in SYRINGE 0 ML IV SCH (19:39)
--- NOTE | 2024-04-28 20:35 | Surgery Progress Note ---
Date of Service April 28, 2024 Assessment & Plan (1) Acute blood loss anemia: Plan: The patient earlier today underwent a laparoscopic cholecystectomy very difficult procedure had been on Eliquis and he has some generalized oozing Teodoro drain was placed subhepatic laying approximately 4 hours postop was doing fine hemodynamically stable then his pressure dropped and has been fluctuating between 80 and 90 and 140 with some vasopressors his hemoglobin is now dropped drastically in fact the last 1 that was drawn approximately 5:00 was 9.5 preoperatively the patient had 11.4 previously 1 drawn at 237 2524-day of surgery was 10.4 and at 545 was 9.5 but he continues to have a significant amount of serosanguineous drainage from the subhepatic area no we did irrigate significantly at the time of the surgery but the patient had generalized oozing over the area for us significant disease gallbladder therefore at this time discussed with the patient and family the best to take the patient back to surgery laparoscopically the lavage and hopefully identify the source of bleeding Of note the patient had a transhepatic cholecystostomy placed at the time of surgery we removed the drainage system and there was no drainage appreciated from the opening in the liver Repeat hemoglobin at this time is pending Plan Take patient back to surgery for postoperative bleed and abdominal washout Procedure was explained to the patient including attempted laparoscopically but most likely may need a laparotomy Admission and Anticipated Discharge Date Admission Date: April 28, 2024 Results & Data Vital Signs (Past 12 Hours) Vital Signs Temp Pulse Pulse Pulse Resp BP BP 04/28/24 19:48 36.8 C 70 20 97/58 L 04/28/24 18:30 131/66 04/28/24 18:24 62 18 04/28/24 18:21 62 18 04/28/24 18:15 142/73 H 04/28/24 18:05 130/69 04/28/24 18:05 130/69 04/28/24 18:00 131/65 04/28/24 18:00 131/65 04/28/24 17:49 108/58 L 04/28/24 17:49 108/58 L 04/28/24 17:45 66/38 L 04/28/24 17:42 62 24 04/28/24 17:38 81/45 L 04/28/24 17:38 81/45 L 04/28/24 17:38 81/45 L 04/28/24 17:36 89/49 L 04/28/24 17:36 63 24 04/28/24 17:03 60 21 04/28/24 16:57 36.4 C L 60 21 89/64 L 04/28/24 16:54 60 18 04/28/24 16:48 59 L 16 04/28/24 16:45 59 L 10 L 04/28/24 16:30 61 16 04/28/24 16:21 61 11 L 04/28/24 16:11 59 L 16 04/28/24 16:03 59 L 5 L 04/28/24 15:57 59 L 10 L 04/28/24 15:50 04/28/24 15:48 58 L 8 L 04/28/24 15:42 59 L 04/28/24 15:39 58 L 13 04/28/24 15:21 58 L 6 L 04/28/24 15:21 36.5 C 58 L 16 91/51 L 04/28/24 15:15 59 L 13 04/28/24 14:51 56 L 11 L 04/28/24 14:48 56 L 6 L 04/28/24 14:44 56 L 16 04/28/24 14:33 54 L 17 04/28/24 14:21 58 L 17 04/28/24 14:15 56 L 17 04/28/24 14:15 52/31 L 04/28/24 14:11 36.4 C L 56 L 16 04/28/24 13:51 55 L 13 04/28/24 13:42 54 L 16 04/28/24 13:36 54 L 15 04/28/24 13:21 52 L 13 04/28/24 13:12 52 L 17 04/28/24 13:00 50 L 16 04/28/24 12:54 54 L 17 04/28/24 12:42 49 L 14 04/28/24 12:38 36.3 C L 49 L 16 04/28/24 12:37 36.9 C 49 L 16 04/28/24 12:36 49 L 16 04/28/24 12:30 36.3 C L 49 L 18 04/28/24 12:05 47 L 16 04/28/24 11:55 36.4 C L 47 L 16 04/28/24 11:45 46 L 16 07/25/24 11:35 46 L 15 04/28/24 11:25 44 L 12 04/28/24 11:15 45 L 14 04/28/24 11:05 44 L 14 04/28/24 10:55 44 L 14 04/28/24 10:45 36.0 C L 44 L 19 BP Pulse Ox O2 Del Method 04/28/24 19:48 96 04/28/24 18:30 04/28/24 18:24 100 04/28/24 18:21 99 04/28/24 18:15 04/28/24 18:05 04/28/24 18:05 04/28/24 18:00 04/28/24 18:00 04/28/24 17:49 04/28/24 17:49 04/28/24 17:45 04/28/24 17:42 95 04/28/24 17:38 04/28/24 17:38 04/28/24 17:38 04/28/24 17:36 04/28/24 17:36 100 04/28/24 17:03 04/28/24 16:57 96 04/28/24 16:54 04/28/24 16:48 59/33 L 95 Room Air 04/28/24 16:45 04/28/24 16:30 73/39 L 98 Room Air 04/28/24 16:21 04/28/24 16:11 82/47 L 96 Room Air 04/28/24 16:03 04/28/24 15:57 04/28/24 15:50 86/47 L 04/28/24 15:48 04/28/24 15:42 82/39 L 04/28/24 15:39 04/28/24 15:21 04/28/24 15:21 94 Room Air 04/28/24 15:15 04/28/24 14:51 04/28/24 14:48 04/28/24 14:44 94/57 L 96 Room Air 04/28/24 14:33 04/28/24 14:21 04/28/24 14:15 04/28/24 14:15 58/33 L 04/28/24 14:11 80/47 L 95 Room Air 04/28/24 13:51 04/28/24 13:42 04/28/24 13:36 04/28/24 13:21 04/28/24 13:12 04/28/24 13:00 04/28/24 12:54 04/28/24 12:42 04/28/24 12:38 133/66 94 Room Air 04/28/24 12:37 110/61 94 Room Air 04/28/24 12:36 04/28/24 12:30 152/66 H 96 Room Air 04/28/24 12:05 138/67 96 Room Air 04/28/24 11:55 142/68 H 95 Room Air 04/28/24 11:45 144/41 H 95 Room Air 04/28/24 11:35 151/70 H 96 Room Air 04/28/24 11:25 136/65 94 Room Air 04/28/24 11:15 142/67 H 97 Room Air 04/28/24 11:05 151/70 H 96 Room Air 04/28/24 10:55 143/63 H 99 Room Air 04/28/24 10:45 170/81 H 97 Room Air
[2024-04-28] MEDS ORDERED: METOPROLOL TARTRATE 25 MG TAB PO SCH (21:00)
--- NOTE | 2024-04-28 21:02 | Procedure Note ---
Procedure Note Date of Service April 28, 2024 Note INTERNAL JUGULAR CENTRAL LINE PROCEDURE NOTE: Procedure: Internal Jugular Central Line Placement Attending: Dr. Aguillon Provider: JUSTIN Dorado Indication: Central Drug Administration, Poor Venous Access, Multiple Lab Draws Necessary, etc. Anesthesia: Lidocaine 1% Consent was signed and placed on the chart prior to procedure. Indication, risks, and benefits were explained at length. A time-out was completed verifying correct patient, procedure, site, positioning, and implants(s) or special equipment if applicable. Patients right Neck was cleansed and draped in the typical sterile fashion using Chloraprep. The right Internal Jugular Vein and Carotid Artery were identified using ultrasound. The superficial tissue was anesthetized using 3 mL of 1% lidocaine without epinephrine under direct visualization with the ultrasound. After adequate anesthetization was achieved, the Internal Jugular vein was cannulated under direct ultrasound guidance using an introducer needle on a syringe. Good venous blood return was maintained prior to removal of syringe from introducer needle. Using Seldinger Technique, a guide wire was advanced through the introducer needle without resistance. The introducer needle was removed and ult rasound images were obtained of the guide wire within the Internal Jugular Vein and saved to the patients medical record. A small incision was made in penetrating fashion at the guide wire insertion site utilizing an 11 blade scalpel. The dilator was advanced to the vessel without resistance. The dilator was exchanged for the triple lumen catheter which was advanced into the vessel without resistance. The guide wire was removed intact from the catheter without issue. Claves were placed on each catheter tip with confirmation of good blood flow from each lumen. Each port was easily flushed with sterile saline. The catheter was placed at 16 cm and sutured in place. BioPatch was applied to the catheter and a sterile Tegaderm dressing was applied over the catheter with careful attention to sterility. Patient tolerated procedure well. No immediate complications were met. Post procedure x-ray was completed, placement was appropriate and no pneumothorax was noted. Images obtained are saved for permanent record Procedural Ultrasound Guidance: Procedure Date: 04/28/24 Indication: Central venous catheter insertion Attending: Dr. Aguillon Provider: JUSTIN Dorado Artery AND Vein visualized: yes Compressible Vein: yes Guidewire or Short Catheter seen in vein prior to dilation: yes Line confirmed in Vein with ultrasound: yes Images obtained are saved for permanent record. Coding CPT Codes Tubes, Drains, and Vasc Access - Tubes, Drains, and Vasc Access: [id number] Insertion Of Non-tunneled Catheter Age 5 Yrs> ([id number]) Tubes, Drains, and Vasc Access - Tubes, Drains, and Vasc Access: [id number] Ultrasound Guidance For Vascular ([id number]) [facility] Procedure Codes (Charges) Tubes, Drains, and Vasc Access Procedure 1: Tubes, Drains, and Vasc Access: [id number] Insertion Of Non-tunneled Catheter Age 6 Yrs> Procedure 2: Tubes, Drains, and Vasc Access: [id number] Ultrasound Guidance For Vascular
[2024-04-28 21:41] LABS: Hematocrit (blood only) 27.3 % (42.0-52.0); Hemoglobin 9.4 g/dl (14.0-18.0)
[2024-04-28 21:54] LABS: Fibrinogen 305 mg/dl (184-400); INR 1.1 (0.9-1.1); Partial Thromboplastin Ratio 0.9; Partial Thromboplastin Time 24 Seconds (21-31); Prothrombin Time 11.9 Seconds (9.0-12.0)
--- NOTE | 2024-04-28 22:12 | CT Scan Report ---
Exam(s): CT ABDOMEN + PELVIS Without Contrast EXAM: CT Abdomen and Pelvis Without Intravenous Contrast CLINICAL HISTORY: Reason for exam: hypotension, backpain, r/o retroperitoneal bleed. TECHNIQUE: Axial computed tomography images of the abdomen and pelvis without intravenous contrast. CTDI is 28.14 mGy and DLP is 1598.33 mGy-cm. Automated exposure control was utilized for the study. A dose lowering technique was utilized adhering to the principles of ALARA. COMPARISON: No relevant prior studies available. FINDINGS: Lung bases: Dependent subsegmental atelectasis seen in the lower lobes. ABDOMEN: Liver: 11.7 cm diameter hematoma seen anterior to the liver. Gallbladder and bile ducts: Cholecystectomy. No ductal dilation. Pancreas: Unremarkable. No ductal dilation. Spleen: Unremarkable. No splenomegaly. Adrenals: Unremarkable. No mass. Kidneys and ureters: Unremarkable. No obstructing stones. No hydronephrosis. Stomach and bowel: Unremarkable. No obstruction. No mucosal thickening. PELVIS: Appendix: No findings to suggest acute appendicitis. Bladder: Unremarkable. No stones. Reproductive: Mild prostatomegaly. ABDOMEN and PELVIS: Intraperitoneal space: Moderate pneumoperitoneum. There is mild hemoperitoneum with density measurement of 25-35 HU. Bones/joints: No acute fracture. No dislocation. Moderate degenerative disc disease changes seen at L5/S1 junction. Vasculature: Unremarkable. No abdominal aortic aneurysm. Lymph nodes: Unremarkable. No enlarged lymph nodes. Tubes, lines and devices: There is postsurgical drain with the tip near the devon hepatis. IMPRESSION: 1. Hematoma located anterior to the liver 2. Status post cholecystectomy 3. Mild hemoperitoneum and moderate pneumoperitoneum Communications: Verify Receipt with Nurse Electronically signed by: Vincent Douglas MD 04/28/24 22:11 PM
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
[2024-04-28] MEDS ORDERED: CALCIUM CHLORIDE 10% 10 ML SYR IV ONE (23:26)
[2024-04-29] MEDS: SURGICEL ABSORB HEMOSTAT 2IN X 14IN TOP ONE (00:02)
[2024-04-29] MEDS ORDERED: MIDAZOLAM HCL 1 MG/ML 2ML VIAL ONE (00:10)
[2024-04-29] MEDS: BUPIVACAINE 0.5 % 5 MG/1 ML MPF 30ML VIAL ONE (00:24)
[2024-04-29] MEDS ORDERED: ALBUMIN HUMAN 5% 12.5 GM/250 ML VIAL IV ONE ×2 (01:21→01:47)
[2024-04-29 01:27] LABS: Thyroid Stimulating Hormone 9.474 uIu/ml (0.300-4.500)
--- NOTE | 2024-04-29 02:12 | Post Operative Brief Note ---
Immediate Post Op Note Date of Surgery April 29, 2024 Pre & Post Diagnosis Operation Date: 04/28/24 20:30 Pre-Op Diagnosis: Acute blood loss anemia Post-Op Diagnosis: Acute blood loss anemia I identified the patient and participated in the time-out.: Yes Procedure Operation Date: 04/28/24 20:30 Actual Procedures p Laparascopic evaluation and evacuation of intrabdominal bleed(Not Applicable) - Rex Stoner MD, FACS s Laparascopic evaluation and evacuation of intrabdominal bleed - Rex Stoner MD, FACS Surgeon Rex Stoner MD, FACS Ice Puller Lisa KNIGHT Estimated Blood Loss 1,500 Findings Consistent with Post-Op Diagnosis Drains Fry Catheter (came into OR with Fry Catheter) and [place] Drain (came into OR with drain)
[2024-04-29] MEDS ORDERED: MIDAZOLAM BOLUS FROM BAG IV PRN (02:45)
[2024-04-29] MEDS ORDERED: STAT IV Infusion **Titration per Protocol STA ×2 (02:45→07:47)
[2024-04-29] MEDS ORDERED: fentaNYL BOLUS from BAG IV PRN (02:45)
[2024-04-29] MEDS ORDERED: CISATRACURIUM BESYLATE IV SOLN 2 MG/ML 10 ML VIAL IV ONE (02:55)
[2024-04-29] MEDS ORDERED: PROPOFOL IV EMULSION 10 MG/ML 20 ML VIAL IV ONE (02:55)
[2024-04-29] MEDS ORDERED: HYDROCORTISONE SOD SUCCINATE 100 MG/2 ML VIAL ONE (02:57)
[2024-04-29] MEDS: fentaNYL citrate 2,500 MCG/250 ML BAG IV SCH (02:59)
[2024-04-29] MEDS: MIDAZOLAM HCL 125 MG/250 ML BAG IV SCH (03:00)
[2024-04-29 03:01] LABS: iSTAT Creatinine 1.5 mg/dl (0.6-1.3); iSTAT Hemoglobin 9.9 g/dl (14.0-18.0); iSTAT Ionized Calcium 1.1 mmol/l (1.12-1.32); iSTAT Potassium 5.7 mmol/L (3.3-5.0)
[2024-04-29 03:01] LABS: iSTAT Creatinine 1.9 mg/dl (0.6-1.3); iSTAT Hemoglobin 11.2 g/dl (14.0-18.0); iSTAT Ionized Calcium 1.19 mmol/l (1.12-1.32)
[2024-04-29] MEDS: PLASMA-LYTE A 1,000 ML IV ONE (03:01)
[2024-04-29] MEDS: fentaNYL citrate 2,500 MCG/250 ML BAG IV ONE (03:03)
[2024-04-29] MEDS: MIDAZOLAM HCL 125MG/250ML D5W IV ONE (03:03)
[2024-04-29] MEDS: NovoLIN-R INSULIN PER UNIT CHARGE ONE (03:04)
[2024-04-29 03:06] LABS: T4 Free Thyroxine 1.5 ng/dl (0.61-1.60)
--- NOTE | 2024-04-29 03:09 | Anesthesiology Progress Note ---
Date of Service April 29, 2024 Anesthesia Post Procedure Vital Signs Vital Signs: Temp Pulse Pulse Pulse Resp BP BP 04/28/24 21:00 72 19 04/28/24 21:00 105/53 L 04/28/24 20:45 66 25 H 04/28/24 20:30 103/49 L 04/28/24 20:21 72 23 04/28/24 20:18 73 17 04/28/24 20:18 89/50 L 04/28/24 19:48 70 28 H 04/28/24 19:48 36.8 C 70 20 97/58 L 04/28/24 19:45 97/58 L 04/28/24 19:30 110/59 L 04/28/24 19:00 105/56 L 04/28/24 19:00 67 21 04/28/24 18:30 131/66 04/28/24 18:24 62 18 04/28/24 18:21 62 18 04/28/24 18:15 142/73 H 04/28/24 18:05 130/69 04/28/24 18:05 130/69 04/28/24 18:00 131/65 04/28/24 18:00 131/65 04/28/24 17:49 108/58 L 04/28/24 17:49 108/58 L 04/28/24 17:45 66/38 L 04/28/24 17:42 62 24 04/28/24 17:38 81/45 L 04/28/24 17:38 81/45 L 04/28/24 17:38 81/45 L 04/28/24 17:36 89/49 L 04/28/24 17:36 63 24 04/28/24 17:03 60 21 04/28/24 16:57 36.4 C L 60 21 89/64 L 04/28/24 16:54 60 18 04/28/24 16:48 59 L 16 04/28/24 16:45 59 L 10 L 04/28/24 16:30 61 16 04/28/24 16:21 61 11 L 04/28/24 16:11 59 L 16 04/28/24 16:03 59 L 5 L 04/28/24 15:57 59 L 10 L 04/28/24 15:50 04/28/24 15:48 58 L 8 L 04/28/24 15:42 59 L 04/28/24 15:39 58 L 13 04/28/24 15:21 58 L 6 L 04/28/24 15:21 36.5 C 58 L 16 91/51 L 04/28/24 15:15 59 L 13 04/28/24 14:51 56 L 11 L 04/28/24 14:48 56 L 6 L 04/28/24 14:44 56 L 16 04/28/24 14:33 54 L 17 04/28/24 14:21 58 L 17 04/28/24 14:15 56 L 17 04/28/24 14:15 52/31 L 04/28/24 14:11 36.4 C L 56 L 16 04/28/24 13:51 55 L 13 04/28/24 13:42 54 L 16 04/28/24 13:36 54 L 15 04/28/24 13:21 52 L 13 04/28/24 13:12 52 L 17 04/28/24 13:00 50 L 16 04/28/24 12:54 54 L 17 04/28/24 12:42 49 L 14 04/28/24 12:38 36.3 C L 49 L 16 04/28/24 12:37 36.9 C 49 L 16 04/28/24 12:36 49 L 16 04/28/24 12:30 36.3 C L 49 L 18 04/28/24 12:05 47 L 16 04/28/24 11:55 36.4 C L 47 L 16 04/28/24 11:45 46 L 16 04/28/24 11:35 46 L 15 04/28/24 11:25 44 L 12 04/28/24 11:15 45 L 14 04/28/24 11:05 44 L 14 04/28/24 10:55 44 L 14 04/28/24 10:45 36.0 C L 44 L 19 04/28/24 07:51 36.6 C 49 L 20 BP Pulse Ox O2 Del Method 04/28/24 21:00 100 04/28/24 21:00 04/28/24 20:45 97 04/28/24 20:30 04/28/24 20:21 97 04/28/24 20:18 100 04/28/24 20:18 04/28/24 19:48 97 07/25/24 19:48 96 04/28/24 19:45 04/28/24 19:30 04/28/24 19:00 04/28/24 19:00 99 04/28/24 18:30 04/28/24 18:24 100 04/28/24 18:21 99 04/28/24 18:15 04/28/24 18:05 04/28/24 18:05 04/28/24 18:00 04/28/24 18:00 04/28/24 17:49 04/28/24 17:49 04/28/24 17:45 04/28/24 17:42 95 04/28/24 17:38 04/28/24 17:38 04/28/24 17:38 04/28/24 17:36 04/28/24 17:36 100 04/28/24 17:03 04/28/24 16:57 96 04/28/24 16:54 04/28/24 16:48 59/33 L 95 Room Air 04/28/24 16:45 04/28/24 16:30 73/39 L 98 Room Air 04/28/24 16:21 04/28/24 16:11 82/47 L 96 Room Air 04/28/24 16:03 04/28/24 15:57 04/28/24 15:50 86/47 L 04/28/24 15:48 04/28/24 15:42 82/39 L 04/28/24 15:39 04/28/24 15:21 04/28/24 15:21 94 Room Air 04/28/24 15:15 04/28/24 14:51 04/28/24 14:48 04/28/24 14:44 94/57 L 96 Room Air 04/28/24 14:33 04/28/24 14:21 04/28/24 14:15 04/28/24 14:15 58/33 L 04/28/24 14:11 80/47 L 95 Room Air 04/28/24 13:51 04/28/24 13:42 04/28/24 13:36 04/28/24 13:21 04/28/24 13:12 04/28/24 13:00 04/28/24 12:54 04/28/24 12:42 04/28/24 12:38 133/66 94 Room Air 04/28/24 12:37 110/61 94 Room Air 04/28/24 12:36 04/28/24 12:30 152/66 H 96 Room Air 04/28/24 12:05 138/67 96 Room Air 04/28/24 11:55 142/68 H 95 Room Air 04/28/24 11:45 144/41 H 95 Room Air 04/28/24 11:35 151/70 H 96 Room Air 04/28/24 11:25 136/65 94 Room Air 04/28/24 11:15 142/67 H 97 Room Air 04/28/24 11:05 151/70 H 96 Room Air 04/28/24 10:55 143/63 H 99 Room Air 04/28/24 10:45 170/81 H 97 Room Air 04/28/24 07:51 153/71 H 100 Room Air Pain Intensity Abdomen: Pain Intensity: 6 Transfer of Care Handoff Completed per policy Notes Mental Status: see notes below Patient Amnestic to Procedure: Yes Nausea / Vomiting: see Notes below Pain: see Notes below Airway Patency, RR, SpO2: see Notes below BP & HR: see Notes below Hydration State: see Notes below Anesthetic Complications: no major complications apparent Notes: patient remains intubated and sedated after diagnostic laparoscopy and immediate repeat diagnostic laparoscopy for post op intraabdominal bleeding. Patient fluid status is improving but remains somewhat hypovolemic, may need further transfusion, possible need for reoperation, still on norepinephrine and vasopressin, and has preexisting stridor/possible subglottic stenosis with difficulty passing ETT through cords. Decision made to leave the patient intubated and sedated overnight to reconsider weaning per surgical and OR staff during the daytime. Full report to ICU staff including PA-C. Further medical, ventilatory, and hemodynamic care per the ICU team.
--- NOTE | 2024-04-29 03:13 | Communication Note ---
Date of Service: April 29, 2024 Patient reported chronic stridor and hoarse voice since cardiac surgery for valve repair. He has a unclear history of difficult airway, but no complication s noted on airway note from earlier case on 04/28. On first attempt with glidescope, unable to pass 7.0mm ETT through cords despite multiple manipulations. Ventilation was supplemented through the ETT held at the level of the vocal cords while a 6.5mm ETT was prepared. This was passed through the cords with some twisting manipulation and placement was confirmed with cETCO2 and bilateral breath sounds. The ICU team was made aware of the nature of the airway challenges at handoff.
[2024-04-29] MEDS: SODIUM BICARB 8.4% INJ 50 MEQ/50 ML SYR IV STA (03:23)
[2024-04-29] MEDS: HYDROCORTISONE SOD 50 MG in SYRINGE 0 ML IV SCH (03:37)
[2024-04-29] MEDS: PLASMA-LYTE A 1,000 ML IV SCH (04:06)
[2024-04-29 04:57] LABS: Basophils # (auto) 0.01 K/uL (0.00-0.20); Basophils % (auto) 0.1 %; Hematocrit (blood only) 27.6 % (42.0-52.0); Hemoglobin 9.3 g/dl (14.0-18.0); Immature Granulocytes # (auto) 0.19 K/uL (0.01-0.20); Immature Granulocytes % (auto) 1.2 %; Lymphocytes # (auto) 0.62 K/uL (1.20-3.40); Lymphocytes % (auto) 3.8 %; Mean Corpuscular Hemoglobin 30.9 pg (25.0-34.0); Mean Corpuscular Hgb Conc 33.7 g/dL (32.0-36.0); Mean Corpuscular Volume 91.7 fL (80.0-100.0); Mean Platelet Volume 9.5 fL (9.4-12.4); Monocytes # (auto) 1.63 K/uL (0.11-0.59); Monocytes % (auto) 10.1 %; Neutrophils % (auto) 84.8 %; Platelet Count 176 K/uL (130-400); RDW Coefficient of Variation 13.6 % (11.5-14.5); RDW Standard Deviation 45.6 fL (36.4-46.3); Red Blood Count 3.01 M/uL (4.70-6.10); White Blood Count 16.15 K/ul (4.8-10.8)
[2024-04-29 05:00] LABS: Albumin Level 3.1 gm/dl (3.4-5.0); Bilirubin Direct 0.9 mg/dl (0-0.2); Bilirubin,Total 1.4 mg/dl (0.2-1.0); Total Protein 4.6 gm/dl (6.0-8.3)
[2024-04-29 05:43] LABS: Albumin Globulin Ratio 1.9 (0.9-2); BUN Creatinine Ratio 15.4 (10-20); Bilirubin,Total 1.5 mg/dl (0.2-1.0); Calcium 8.2 mg/dl (8.6-10.3); Est GFR (African American) 38.4 ml/min; Est GFR (Non-African American) 33.2 ml/min; Globulin 1.6 gm/dl (2.5-4.0); Magnesium 1.8 mg/dl (1.7-2.4); Phosphorus 4.8 mg/dl (2.5-4.9); Potassium 5.2 mmol/L (3.5-5.1); Total Protein 4.6 gm/dl (6.0-8.3)
--- NOTE | 2024-04-29 07:18 | XRay Report ---
XR chest 1V portable HISTORY: central line placement COMPARISON: Chest 04/07/2024. FINDINGS: There are low lung volumes. No pneumothorax. No pleural effusions. The heart is enlarged. T here are poststernotomy changes and cardiac valve prosthesis again noted. A few bibasilar linear dens ities favor subsegmental atelectasis. A right jugular Port-A-Cath terminates in the SVC. IMPRESSION: A right jugular Port-A-Cath remains in the SVC. No pneumothorax. ACT 112: Negative or not required by law. Electronically signed by: Neil Andrews M.D. 04/29/2024 7:17 AM
--- NOTE | 2024-04-29 07:34 | Critical Care Progress Note ---
Date of Service April 29, 2024 Assessment & Plan (1) Shock circulatory: (2) Acute blood loss anemia: (3) Status post laparoscopic cholecystectomy: (4) Paroxysmal atrial fibrillation: (5) CKD (chronic kidney disease): (6) GERD (gastroesophageal reflux disease): (7) Sleep apnea: (8) Acquired deviated nasal septum: Plan Reason Critically Ill: 74-year-old male past medical history of A-fib, on Eliquis and amiodarone, GERD, DANIEL, CKD came to the hospital for cholecystitis and cholecystectomy. Patient was found to be hypotensive on the floor. Sent to the ICU for further management Echo 04/08/2024: EF 55 to 60%, no regional wall motion abnormalities. Neuro - [facility] ICU: Negative Cardiac - -- Shock Likely hemorrhagic Random cortisol 28.8 Vasopressor support to keep MAP greater than 65 --History of A-fib On Eliquis and amiodarone at home --History of hypertension On metoprolol at home --Prolonged QTc QTc 513 Avoid QT prolonging medications --S/p AVR Bioprosthetic aortic valve, history of mitral valve repair with moderate regurg Respiratory - -- VDRF Postop Continue with ventilatory support Keep RASS -1 Daily sedation holidays and SBT's Chlorhexidine mouthwash --Patient had difficult intubation on 04/28/2024 when they took him to the OR Only 6.5 tube was able to be placed Apparently he had started prior to going to the OR Did have good air leak at bedside on 04/29/2024 GI - -- GERD Continue with pantoprazole RENAL/LYTES - -- GUILHERME on CKD Likely secondary to shock/hypotension Monitor BUNs/creatinine Avoid nephrotoxic medications -- HAGMA Likely sec to lactic acidosis Monitor ENDO - -- ICU hypoglycemia protocol HEME - -- Acute blood loss anemia As per Dr. Aguayo, there was oozing of blood because of complicated cholecystectomy S/p 3 units of PRBC on 04/28/2024, monitor H&H ID - -- History of cholecystitis S/p cholecystectomy 04/28/2024 On ciprofloxacin, will add Flagyl --Prophylaxis VTE: IPC GI: Pantoprazole Lines: Peripheral Diet: N.p.o. Plan: In/out: +4.1 L, urine output 3745 AB.32/34/111 on PEEP of 5, 40% Monitor H&H. Decrease IV fluid to 100 mm/h Add cefepime to patient's Flagyl. Potassium is 5.2, likely from metabolic acidosis from lactic acidosis. Patient already got 1 amp of bicarb. Will repeat BMP later today. If it is still high then we will start the patient on bicarb drip. Magnesium being replaced Patient is a difficult intubation with only 6.5 sized ETT. Did have a good air leak on bedside examination Was discussed with surgery. Family were updated I have personally spent 45 minutes of critical care time in the direct management of this patient. This is a life/limb threatening event. This includes time spent evaluating patient, direct bedside care, chart review, placing orders, interpretation of diagnostic studies, discussion with consultants, patient, and family members, as well as other required patient management activities. This time is exclusive of all separately billable procedures, and teaching time and separate from and in addition to any other critical care service time. Admission and Anticipated Discharge Date Admission Date: April 28, 2024 Subjective Patient seen and examined at bedside. No acute distress Was on propofol 25 and fentanyl 125 at time of examination RASS -2. Breathing with the vent. Has been afebrile. Overnight patient had to be taken to the OR because of hematoma within the belly. Review of Systems 2 Review of Systems: All systems reviewed & are unremarkable except as noted in Subjective and Unobtainable due to endotracheal tube Physical Exam 2 Physical Exam: Constitutional: No acute distress HEENT: PERRLA Respiratory system: Decreased air entry bilaterally, no wheeze, no rhonchi, mild crackles bilaterally CVS: S1-S2 positive, no murmurs or gallops, bradycardia Abdomen: Soft, diffuse abdominal tenderness, nondistended, positive bowel sounds x4, ARLEY still drain in place draining sanguinous fluid Extremities: +1 pulses bilaterally radialis/ dorsalis pedis, no cyanosis, no edema, cold extremities Neuro: RASS -2, Psych: Unable to assess G/U: Positive Fry Skin: no rashes, warm and dry Lymphatic: no cervical or axillary lymphadenopathy Results & Data Results & Data Vital Signs (Past 12 Hours) Vital Signs Temp Pulse Pulse Resp BP BP Pulse Ox 04/29/24 05:16 50 L 123/39 L 04/29/24 04:40 140/63 04/29/24 04:35 159/57 H 04/29/24 04:31 147/73 H 04/29/24 04:30 53 L 20 100 04/29/24 04:25 129/60 04/29/24 04:25 129/60 04/29/24 04:25 129/60 04/29/24 04:25 129/60 04/29/24 04:20 135/60 04/29/24 04:20 135/60 04/29/24 04:18 52 L 20 100 04/29/24 04:15 129/58 L 04/29/24 04:15 129/58 L 04/29/24 04:15 129/58 L 04/29/24 04:10 132/60 04/29/24 04:10 132/60 04/29/24 04:08 60 21 97 04/29/24 04:06 52 L 20 100 04/29/24 04:05 132/60 04/29/24 04:05 132/60 04/29/24 04:00 04/29/24 04:00 04/29/24 03:50 135/60 04/29/24 03:50 135/60 04/29/24 03:40 134/62 04/29/24 03:35 136/59 L 04/29/24 03:27 56 L 17 100 04/29/24 03:25 140/62 04/29/24 03:25 140/62 04/29/24 03:21 54 L 20 100 04/29/24 03:20 146/65 H 04/29/24 03:20 146/65 H 04/29/24 03:18 56 L 20 100 04/29/24 03:15 149/68 H 04/29/24 03:15 149/68 H 04/29/24 03:06 56 L 20 100 04/29/24 03:05 148/72 H 04/29/24 03:05 148/72 H 04/29/24 03:03 57 L 21 100 04/29/24 03:00 58 L 21 100 04/29/24 03:00 149/69 H 04/29/24 03:00 149/69 H 04/29/24 03:00 149/69 H 04/29/24 02:53 36.5 C 60 28 H 156/71 H 100 04/29/24 02:50 156/71 H 04/29/24 02:50 156/71 H 04/29/24 02:50 156/71 H 04/29/24 02:45 141/108 H 04/29/24 02:45 61 23 99 04/29/24 02:43 36.3 C L 61 28 H 141/108 H 100 04/29/24 02:37 145/71 H 04/29/24 02:37 145/71 H 04/29/24 02:33 57 L 5 L 04/29/24 02:33 36.3 C L 59 L 28 H 125/55 L 100 04/28/24 21:00 72 19 100 04/28/24 21:00 105/53 L 04/28/24 20:45 66 25 H 97 04/28/24 20:30 103/49 L 04/28/24 20:21 72 23 97 04/28/24 20:18 73 17 100 04/28/24 20:18 89/50 L 04/28/24 19:48 70 28 H 97 04/28/24 19:48 36.8 C 70 20 97/58 L 96 04/28/24 19:45 97/58 L O2 Del Method FiO2 04/29/24 05:16 04/29/24 04:40 04/29/24 04:35 04/29/24 04:31 04/29/24 04:30 04/29/24 04:25 04/29/24 04:25 04/29/24 04:25 04/29/24 04:25 04/29/24 04:20 04/29/24 04:20 04/29/24 04:18 04/29/24 04:15 04/29/24 04:15 04/29/24 04:15 04/29/24 04:10 04/29/24 04:10 04/29/24 04:08 40 04/29/24 04:06 04/29/24 04:05 04/29/24 04:05 04/29/24 04:00 Mechanical Vent 40 04/29/24 04:00 40 04/29/24 03:50 04/29/24 03:50 04/29/24 03:40 04/29/24 03:35 04/29/24 03:27 04/29/24 03:25 04/29/24 03:25 04/29/24 03:21 04/29/24 03:20 04/29/24 03:20 04/29/24 03:18 04/29/24 03:15 04/29/24 03:15 04/29/24 03:06 04/29/24 03:05 04/29/24 03:05 04/29/24 03:03 04/29/24 03:00 04/29/24 03:00 04/29/24 03:00 04/29/24 03:00 04/29/24 02:53 Mechanical Vent 50 04/29/24 02:50 04/29/24 02:50 04/29/24 02:50 04/29/24 02:45 04/29/24 02:45 04/29/24 02:43 Mechanical Vent 50 04/29/24 02:37 04/29/24 02:37 04/29/24 02:33 04/29/24 02:33 Mechanical Vent 50 04/28/24 21:00 04/28/24 21:00 04/28/24 20:45 04/28/24 20:30 04/28/24 20:21 04/28/24 20:18 04/28/24 20:18 04/28/24 19:48 04/28/24 19:48 04/28/24 19:45 Laboratory Results 04/29/24 04:29 04/29/24 04:29 Coding Level of Care Code 30788 CRITICAL CARE 1ST 30-74M Diagnoses Shock circulatory R57.9 Acute blood loss anemia D62 Status post laparoscopic cholecystectomy Z90.49 Paroxysmal atrial fibrillation I48.0 CKD (chronic kidney disease) N18.9 GERD (gastroesophageal reflux disease) K21.9 Sleep apnea G47.30 Acquired deviated nasal septum J34.2
[2024-04-29 07:46] LABS: Hematocrit (blood only) 28.2 % (42.0-52.0); Hemoglobin 9.9 g/dl (14.0-18.0)
[2024-04-29] MEDS ORDERED: PROPOFOL BOLUS FROM BAG IV PRN (07:47)
[2024-04-29] MEDS: propofoL 1,000 MG/100 ML VIAL IV SCH (08:00)
[2024-04-29 08:10] LABS: iSTAT Art Bld Gas pCO2 Correct 34 mmHg (35-46); iSTAT Art Bld Gas pH Corrected 7.329 (7.35-7.45); iSTAT Arterial Blood Gas HCO3 18 meg/L (19-24); iSTAT Arterial Blood Gas pCO2 34 mmHg (35-46); iSTAT Arterial Blood Gas pH 7.33 (7.35-7.45); iSTAT Arterial Blood Gas pO2 111 mmHg (80-95); iSTAT Arterial Blood Gas pO2 C 111; iSTAT Carbon Dioxide 19 mmol/L (24-31); iSTAT FiO2 40 %; iSTAT Hematocrit 27 % (42-52); iSTAT Hemoglobin 9.2 g/dl (14.0-18.0); iSTAT Potassium 5.2 mmol/L (3.3-5.0); iSTAT Site Art Line; iSTAT Sodium 134 mmol/L (135-144)
--- NOTE | 2024-04-29 08:13 | Surgery Progress Note ---
Date of Service April 29, 2024 Assessment & Plan (1) Status post laparoscopic cholecystectomy: Plan: POD#1 difficult laparoscopic cholecystectomy, complicated by post op bleed now s/p laparoscopic evacuation of intra-abdominal bleed Has received a total of 3 units pRBCs yesterday Hbg this AM stable at 9.3, WBC 16, K 5.2, Cr 1.9, lactate 5.7, Tb 1.4, Db 0.9, AST 33, ALT 23 Patient currently ventilated. On Vaso and Levo for BP support, pressures currently SBPs 120s. HRs 50s On exam abdomen soft, expected post op discomfort. Incisions c/d/i. ARLEY drain with sanguineous output, 130cc documented since 415 this AM Continue IV abx. Continue ARLEY drain Appreciate ICU/hospitalist assistance with patient's critical care issues at this time (2) Acute blood loss anemia: Admission and Anticipated Discharge Date Admission Date: April 28, 2024 Supervising Physician Co-Signing Physician Notes As per Kaya Hardy physician insurance legal assistant The patient remains intubated he is alert coherent discussed operative findings from last evening and early this morning The patient continues to ooze from the Teodoro drain subhepatic the rate is significantly decreased from yesterday hemoglobin is pending at noon The abdomen remains benign characteristics the drain is serous mostly sanguinous no clots seen Discussed with Dr. Aguillon morning show newscast producer the only other option I left would be to take him back to surgery no formal laparotomy and need to be packed the area if we find an area that continues to have a generalized oozing that does not appear to stop His and daughter to be here later Subjective The patient is currently awake and eyes open, but ventilated. Unable to obtain subjective history due to mechanical vent. Physical Exam Physical Exam: eyes open, awake. ventilated Respiratory: on vent Gastrointestinal (Abdomen): Inspection/Auscultation: + abdominal surgical incision (c/d/i with dermanond) and + abdominal surgical drain present (sanguineous drainage 540 over last 12 hrs); abdomen not distended Percussion/Palpation: abdomen soft Results & Data Vital Signs (Past 12 Hours) Vital Signs Temp Pulse Pulse Resp BP BP Pulse Ox 04/29/24 05:16 50 L 123/39 L 04/29/24 04:40 140/63 04/29/24 04:35 159/57 H 04/29/24 04:31 147/73 H 04/29/24 04:30 53 L 20 100 04/29/24 04:25 129/60 04/29/24 04:25 129/60 04/29/24 04:25 129/60 04/29/24 04:25 129/60 04/29/24 04:20 135/60 04/29/24 04:20 135/60 04/29/24 04:18 52 L 20 100 04/29/24 04:15 129/58 L 04/29/24 04:15 129/58 L 04/29/24 04:15 129/58 L 04/29/24 04:10 132/60 04/29/24 04:10 132/60 04/29/24 04:08 60 21 97 04/29/24 04:06 52 L 20 100 04/29/24 04:05 132/60 04/29/24 04:05 132/60 04/29/24 04:00 04/29/24 04:00 04/29/24 03:50 135/60 04/29/24 03:50 135/60 04/29/24 03:40 134/62 04/29/24 03:35 136/59 L 04/29/24 03:27 56 L 17 100 04/29/24 03:25 140/62 04/29/24 03:25 140/62 04/29/24 03:21 54 L 20 100 04/29/24 03:20 146/65 H 04/29/24 03:20 146/65 H 04/29/24 03:18 56 L 20 100 04/29/24 03:15 149/68 H 04/29/24 03:15 149/68 H 04/29/24 03:06 56 L 20 100 04/29/24 03:05 148/72 H 04/29/24 03:05 148/72 H 04/29/24 03:03 57 L 21 100 04/29/24 03:00 58 L 21 100 04/29/24 03:00 149/69 H 04/29/24 03:00 149/69 H 04/29/24 03:00 149/69 H 04/29/24 02:53 97.7 F 60 28 H 156/71 H 100 04/29/24 02:50 156/71 H 04/29/24 02:50 156/71 H 04/29/24 02:50 156/71 H 04/29/24 02:45 141/108 H 04/29/24 02:45 61 23 99 04/29/24 02:43 97.3 F L 61 28 H 141/108 H 100 04/29/24 02:37 145/71 H 04/29/24 02:37 145/71 H 04/29/24 02:33 57 L 5 L 04/29/24 02:33 97.3 F L 59 L 28 H 125/55 L 100 04/28/24 21:00 72 19 100 04/28/24 21:00 105/53 L 04/28/24 20:45 66 25 H 97 04/28/24 20:30 103/49 L 04/28/24 20:21 72 23 97 04/28/24 20:18 73 17 100 04/28/24 20:18 89/50 L O2 Del Method FiO2 04/29/24 05:16 04/29/24 04:40 04/29/24 04:35 04/29/24 04:31 04/29/24 04:30 04/29/24 04:25 04/29/24 04:25 04/29/24 04:25 04/29/24 04:25 04/29/24 04:20 04/29/24 04:20 04/29/24 04:18 04/29/24 04:15 04/29/24 04:15 04/29/24 04:15 04/29/24 04:10 04/29/24 04:10 04/29/24 04:08 04/29/24 04:06 04/29/24 04:05 04/29/24 04:05 04/29/24 04:00 Mechanical Vent 40 04/29/24 04:00 40 04/29/24 03:50 04/29/24 03:50 04/29/24 03:40 04/29/24 03:35 04/29/24 03:27 04/29/24 03:25 04/29/24 03:25 04/29/24 03:21 04/29/24 03:20 04/29/24 03:20 04/29/24 03:18 04/29/24 03:15 04/29/24 03:15 04/29/24 03:06 04/29/24 03:05 04/29/24 03:05 04/29/24 03:03 04/29/24 03:00 04/29/24 03:00 04/29/24 03:00 04/29/24 03:00 04/29/24 02:53 Mechanical Vent 50 04/29/24 02:50 04/29/24 02:50 04/29/24 02:50 04/29/24 02:45 04/29/24 02:45 04/29/24 02:43 Mechanical Vent 50 04/29/24 02:37 04/29/24 02:37 04/29/24 02:33 04/29/24 02:33 Mechanical Vent 50 04/28/24 21:00 04/28/24 21:00 04/28/24 20:45 04/28/24 20:30 04/28/24 20:21 04/28/24 20:18 04/28/24 20:18 PG Care Time/CCT Total # of Minutes Spent Total Time Spent with Patient: Total time spent is greater than 50% in coordination of care (as documented) at patient's floor/unit and/or counseling patient: Coding Level of Care Code 65561 Post Operative Follow-Up Diagnoses Status post laparoscopic cholecystectomy Z90.49 Acute blood loss anemia D62
[2024-04-29] MEDS ORDERED: AMIODARONE 200 MG TAB PO SCH (09:00)
[2024-04-29] MEDS: PROPOFOL IV EMULSION 10 MG/ML 100 ML VIAL IV ONE (09:53)
[2024-04-29] MEDS: MAGNESIUM SULFATE / D5W 1 GM/100 ML BAG IV SCH (09:55)
[2024-04-29] MEDS ORDERED: DEXTROSE 50% 50 ML SYRINGE IV PRN (10:00)
[2024-04-29] MEDS ORDERED: GLUCOSE 40% GEL 15 GM TUBE PO PRN (10:00)
[2024-04-29] MEDS ORDERED: GLUCAGON FOR INJ 1 MG VIAL IM PRN (10:00)
[2024-04-29] MEDS ORDERED: GLUCOSE 10 TAB/TUBE PO PRN (10:00)
[2024-04-29] MEDS ORDERED: CARBOHYDRATES FOR HYPOGLYCEMIA PO PRN (10:00)
--- NOTE | 2024-04-29 11:01 | Operative Report ---
PG Post Operative Report Pre & Post Diagnosis Operation Date: 04/28/24 20:30 Pre-Op Diagnosis: Acute blood loss anemia Post-Op Diagnosis: Acute blood loss anemia I identified the patient and participated in the time-out.: Yes Procedure Operation Date: 04/28/24 20:30 Actual Procedures p Laparascopic evaluation and evacuation of intrabdominal bleed(Not Applicable) - Rex Stoner MD, FACS s Laparascopic evaluation and evacuation of intrabdominal bleed - Rex Stoner MD, FACS The patient was brought into the operating theater general endotracheal anesthesia the abdomen was prepped Betadine solution including the right upper quadrant drain sites and drain and properly draped a timeout was had we opened the epigastric trocar site removed the Vicryl suture and inserted to 12 trocar without any difficulty CO2 insufflated we Did a broad 12 this point the camera was inserted we could see significant amount of blood clot surrounding the liver at this point on direct visualization we removed the Vicryl sutures from the supraumbilical incision and directly placed a 5 mm trocar the camera was then placed patient in that area and we could not visualize better the patient has significant amount of blood surrounding the liver and also some down into the left gutter at this point we inserted another 5 mm trocar to the subcostal t rocar site after removing the Monocryl suture and using the suction large suction were able subsequentially free all the blood clots no active bleeding was identified in fact the gallbladder fossa had a blood clot in it but no bleeding was appreciated we had concerned that there was some bleeding from the cholecystostomy tube has gone through the liver bed here there was no evidence of any bleeding from the site once we have freed up considerable amount of all this blood clot retracted the liver and on the subhepatic area there seem to be some oozing found in the gutter was suctioned out area that could not identify any specific bleeder once we suctioned the area out there was a minimal amount of oozing appreciated from undersurface of the liver but nothing there or consider significant and this may have been part of the irrigation that we used when remove the blood clot and we freed the blood clot from the left side gutter and down the pelvic area once we were completed there was no evidence of any residual blood clot we visualized the trocar site in the epigastric area there was no bleeding from the area we visualized the subcostal trocar site no bleeding the camera was placed to the epigastric trocar site to visualize the supraumbilical opening and no bleeding was appreciated from that trocar this point feeling that there was no significant site of bleeding I elected to close the wounds under direct visualization removing each trocar fascial stitch of 2000 Vicryl in the epigastric area fascial stitch and 4-0 Monocryl for the other ones prior to leaving the operating room we noticed that the Teodoro drainage was continued to put some bloody fluid I watched it for approximately 25 minutes and it was just a scant amount of continued as to some extent that was preoperative ly I felt comfortable at this time reprepped the patient no instruments timeout was had the patient identified and again took out the fascial suture in the epigastric area in a similar fashion the Monocryl inserted the similar trocars at this point we not see any reaccumulation of any bloody fluid anywhere around the liver or in the gutter and the Teodoro drain was underneath the liver with minimal accumulation of fluid or bloody fluid at the initial surgery we had to mobilize the duodenum from the gallbladder and therefore we went on and inspected that area more thoroughly there was no evidence of any succus entericus indicating possibility of a duodenal injury causing the bleeding some fatty tissue that extended just cephalad from the pyloric area that we had taken down there may have been a small bleeder in that area that we had not recognized before therefore we doubly clipped the area of this fatty tissue again irrigated the area copiously I cannot identify any other area that would be concerning enough to explain this bleeding but elected to remove the Teodoro drain and reposition another Teodoro drain underneath this time we placed the laterally to the neck of her gallbladder dissection and down into the subhepatic area again attaching it with 2-0 silk skin edge individual trocars directly removed under direct visualization no bleeding identified 0 Vicryl fascial suture for the epigastric area Monocryl for subcuticularly Steri-Strips applied the end of the procedure the reservoir from the Teodoro drain we watched him and no bleeding was appreciated When we were finished the patient had total he received 3 units of blood postoperatively and the hemoglobin was 11.4 but still needed to be maintained on pressors I spoke with his by phone after the procedure and discussed with her that we had given her 3 units of blood what we have found and hopefully this will take care of her of the issue Surgeon Rex Stoner MD, FACS Patrol Inspector Lisa KNIGHT Estimated Blood Loss 1,500 Findings Consistent with Post-Op Diagnosis Oozing from the subhepatic area and around the dissection from the duodenum that came off the gallbladder Specimens None Drains New 19 round Teodoro drain Complications Ongoing oozing from her initial surgery reexploration for bleeding and reexpl oration again from the second exploration for ongoing oozing site of bleeding could not definitively be identified appear to be a generalized oozing Indications Postoperative intra-abdominal bleed Description of Procedure merda I attest to the content of the Intraoperative Record and any orders documented therein. Any exceptions are noted below.
[2024-04-29] MEDS: CEFEPIME 2,000 MG in SYRINGE 0 ML IV SCH (11:30)
[2024-04-29 11:58] LABS: Hematocrit (blood only) 26.9 % (42.0-52.0); Hemoglobin 9.4 g/dl (14.0-18.0)
[2024-04-29 12:17] LABS: BUN Creatinine Ratio 19.2 (10-20); Calcium 8.2 mg/dl (8.6-10.3); Creatinine Clr Calc Pharmacy 52.4 ml/min; Est GFR (African American) 44.7 ml/min; Est GFR (Non-African American) 38.6 ml/min; Potassium 4.9 mmol/L (3.5-5.1)
[2024-04-29 12:27] LABS: iSTAT Art Bld Gas pCO2 Correct 35 mmHg (35-46); iSTAT Art Bld Gas pH Corrected 7.209 (7.35-7.45); iSTAT Arterial Blood Gas HCO3 14 meg/L (19-24); iSTAT Arterial Blood Gas pCO2 36 mmHg (35-46); iSTAT Arterial Blood Gas pO2 112 mmHg (80-95); iSTAT Arterial Blood Gas pO2 C 108; iSTAT Carbon Dioxide 15 mmol/L (24-31); iSTAT FiO2 40 %; iSTAT Hematocrit 31 % (42-52); iSTAT Hemoglobin 10.5 g/dl (14.0-18.0); iSTAT Potassium 5.1 mmol/L (3.3-5.0); iSTAT Site Art Line; iSTAT Sodium 135 mmol/L (135-144)
[2024-04-29] MEDS: INSULIN ASPART PER UNIT CHARGE SC SCH (13:53)
[2024-04-29 15:37] LABS: Hemoglobin 9.2 g/dl (14.0-18.0)
[2024-04-29 19:22] LABS: Hematocrit (blood only) 25.6 % (42.0-52.0)
[2024-04-29 23:32] LABS: Hematocrit (blood only) 23.8 % (42.0-52.0); Hemoglobin 8.3 g/dl (14.0-18.0)
[2024-04-30 04:48] LABS: Basophils # (auto) 0.01 K/uL (0.00-0.20); Basophils % (auto) 0.1 %; Eosinophils # (auto) 0.02 K/uL (0.00-0.50); Eosinophils % (auto) 0.1 %; Hematocrit (blood only) 22.7 % (42.0-52.0); Immature Granulocytes # (auto) 0.16 K/uL (0.01-0.20); Immature Granulocytes % (auto) 0.8 %; Lymphocytes # (auto) 0.94 K/uL (1.20-3.40); Lymphocytes % (auto) 4.9 %; Mean Corpuscular Hemoglobin 31.4 pg (25.0-34.0); Mean Corpuscular Hgb Conc 35.2 g/dL (32.0-36.0); Mean Platelet Volume 9.9 fL (9.4-12.4); Monocytes # (auto) 0.97 K/uL (0.11-0.59); Monocytes % (auto) 5.1 %; Neutrophils # (auto) 17.05 K/uL (1.40-6.50); Platelet Count 150 K/uL (130-400); RDW Standard Deviation 45.7 fL (36.4-46.3); Red Blood Count 2.55 M/uL (4.70-6.10); White Blood Count 19.15 K/ul (4.8-10.8)
[2024-04-30 05:00] LABS: BUN Creatinine Ratio 23.2 (10-20); Calcium 7.6 mg/dl (8.6-10.3); Creatinine Clr Calc Pharmacy 65.3 ml/min; Est GFR (African American) 58.4 ml/min; Est GFR (Non-African American) 50.4 ml/min; Magnesium 2.2 mg/dl (1.7-2.4); Potassium 4.3 mmol/L (3.5-5.1)
--- NOTE | 2024-04-30 05:10 | Surgery Progress Note ---
Date of Service April 30, 2024 Assessment & Plan (1) Status post laparoscopic cholecystectomy: (2) Acute blood loss anemia: Plan: Patient is status post laparoscopic cholecystectomy on 04/28/2024 (postop day #2); he is also status post exploratory laparoscopy and evacuation of intra- abdominal bleed on 04/29/2024 (postop day #1) Patient is currently intubated/sedated on ventilator. Will continue supportive care with ventilator for the present time Urine output is acceptable at the present time Acute kidney injury has improved as his creatinine is now within the normal range at 1.3 Continue ARLEY drain to bulb suction Continue intravenous fluids Acute blood loss anemia as notedpatient's hemoglobin and hematocrit this morning are 8.0 and 22.7; consideration may be given to providing additional packed red blood cells Continue pressor support and wean as tolerated Additional recommendations to follow based on his clinical course as it unfolds Admission and Anticipated Discharge Date Admission Date: April 28, 2024 Supervising Physician Co-Signing Physician Notes Alert responds appropriately The abdomen is softly distended no tenderness Teodoro drainage 20 to 30 cc every few hours Lab noted creatinine down to baseline hemoglobin down to 8 discussed with sales representative womens health will transfuse another unit of blood Vasopressors are being weaned Anticipate extubation today called [facility] and left a detailed voicemail regarding her status Subjective Patient is currently intubated and sedated on the ventilator. I discussed with nurse who is attending to the patient. She notes the patient has remained hemodynamically stable however he remains on pressors including Levophed and vasopressin. She notes that he does not required any additional blood products since his most recent transfusion. She notes that his urine output has been in excess of 30 cc/h. ARLEY drain appears to be draining approximately 20 to 30 cc every 2 hours. No additional concerns are voiced by nursing staff at this time Physical Exam Respiratory: Breath sounds are present and are aided by ventilator Gastrointestinal (Abdomen): Abdomen is soft and nondistended. There is no ecchymosis or hematoma noted. Palpation of the abdomen did not appear to elicit pain. Laparoscopic incisions are clean, dry, and intact. ARLEY drain is in place draining sanguinous material and has drained a total of 80 cc over the last shift. Musculoskeletal: Pedal pulses are palpable Results & Data Vital Signs (Past 12 Hours) Vital Signs Pulse Resp BP Pulse Ox O2 Del Method FiO2 04/30/24 04:00 30 04/30/24 04:00 57 L 126/39 L 04/30/24 02:03 57 L 20 97 30 04/30/24 02:00 132/57 L 04/30/24 02:00 132/57 L 04/30/24 02:00 132/57 L 04/30/24 01:54 57 L 20 97 04/30/24 01:42 57 L 20 97 04/30/24 01:38 57 L 04/30/24 01:24 57 L 20 97 30 04/30/24 01:00 128/55 L 04/30/24 00:48 57 L 20 97 04/30/24 00:35 57 L 20 97 04/30/24 00:30 129/55 L 04/30/24 00:05 57 L 20 97 30 04/30/24 00:00 57 L 114/38 L 04/30/24 00:00 30 04/29/24 23:41 57 L 20 98 04/29/24 23:30 128/56 L 04/29/24 23:23 57 L 20 98 04/29/24 23:03 56 L 20 97 30 04/29/24 23:00 117/52 L 04/29/24 23:00 117/52 L 04/29/24 22:30 118/52 L 04/29/24 22:15 56 L 20 98 04/29/24 22:03 57 L 20 98 30 04/29/24 22:00 117/50 L 04/29/24 22:00 117/50 L 04/29/24 22:00 117/50 L 04/29/24 21:59 57 L 20 98 04/29/24 21:47 57 L 20 98 04/29/24 21:31 110/42 L 04/29/24 21:31 110/42 L 04/29/24 21:18 58 L 20 96 04/29/24 21:15 59 L 20 96 04/29/24 21:00 Mechanical Vent 30 04/29/24 21:00 120/51 L 04/29/24 21:00 120/51 L 04/29/24 21:00 120/51 L 30 04/29/24 20:33 58 L 20 98 04/29/24 20:30 58 L 20 98 04/29/24 20:30 116/51 L 04/29/24 20:30 116/51 L 04/29/24 20:30 116/51 L 04/29/24 20:01 120/50 L 04/29/24 20:01 120/50 L 30 04/29/24 20:00 58 L 122/36 L 04/29/24 20:00 30 04/29/24 19:57 58 L 20 97 04/29/24 19:42 60 20 98 04/29/24 19:40 59 L 20 97 30 04/29/24 19:00 63 20 98 30 04/29/24 19:00 135/62 04/29/24 19:00 135/62 04/29/24 19:00 135/62 04/29/24 18:03 65 20 99 04/29/24 18:00 147/64 H 04/29/24 18:00 147/64 H 04/29/24 17:57 65 20 99 04/29/24 17:31 140/44 L 04/29/24 17:27 67 20 98 04/29/24 17:15 135/62 04/29/24 17:09 66 20 98 PG Care Time/CCT Total # of Minutes Spent Total Time Spent with Patient: Total time spent is greater than 50% in coordination of care (as documented) at patient's floor/unit and/or counseling patient: Coding Level of Care Code 71412 Post Operative Follow-Up Diagnoses Status post laparoscopic cholecystectomy Z90.49 Acute blood loss anemia D62
[2024-04-30 05:13] LABS: iSTAT Allen Test Pass; iSTAT Art Bld Gas pCO2 Correct 29 mmHg (35-46); iSTAT Art Bld Gas pH Corrected 7.475 (7.35-7.45); iSTAT Arterial Blood Gas HCO3 21 meg/L (19-24); iSTAT Arterial Blood Gas pCO2 29 mmHg (35-46); iSTAT Arterial Blood Gas pH 7.47 (7.35-7.45); iSTAT Arterial Blood Gas pO2 72 mmHg (80-95); iSTAT Arterial Blood Gas pO2 C 71; iSTAT Carbon Dioxide 22 mmol/L (24-31); iSTAT FiO2 30 %; iSTAT Hematocrit 22 % (42-52); iSTAT Hemoglobin 7.5 g/dl (14.0-18.0); iSTAT Potassium 4.2 mmol/L (3.3-5.0); iSTAT Site Art Line; iSTAT Sodium 134 mmol/L (135-144)
--- NOTE | 2024-04-30 07:56 | XRay Report ---
XR chest 1V portable HISTORY: 74 years-old Male Resp failure acute respiratory failure COMPARISON: 04/28/2024 TECHNIQUE: AP view the chest FINDINGS: Tracheal tube is 7 cm. Distal tip right IJ catheter in expected location of the mid SVC. Cardiomegaly with vascular congestion. Decreased pneumoperitoneum. Sternotomy with cardiac valvular prosthesis. S mall pleural effusions with bibasilar densities. IMPRESSION: 1. Cardiomegaly with tracheal tube and right IJ central venous catheter positioning as above. 2. Cardiomegaly with pulmonary vascular congestion, small pleural effusions and mild bibasilar densit ies. ACT 112: Negative or not required by law. The above report was generated using voice recognition software. It may contain grammatical, syntax o r spelling errors. Electronically signed by: Lopez Smith M.D. 04/30/2024 7:54 AM
--- NOTE | 2024-04-30 11:30 | Critical Care Progress Note ---
Date of Service April 30, 2024 Assessment & Plan (1) Shock circulatory: (2) Acute blood loss anemia: (3) Status post laparoscopic cholecystectomy: (4) Paroxysmal atrial fibrillation: (5) CKD (chronic kidney disease): (6) GERD (gastroesophageal reflux disease): (7) Sleep apnea: (8) Acquired deviated nasal septum: Plan Reason Critically Ill: 74-year-old male past medical history of A-fib, on Eliquis and amiodarone, GERD, DANIEL, CKD came to the hospital for cholecystitis and cholecystectomy. Patient was found to be hypotensive on the floor. Sent to the ICU for further management Echo 04/08/2024: EF 55 to 60%, no regional wall motion abnormalities. Neuro - [facility] ICU: Negative Cardiac - -- Shock Likely hemorrhagic Random cortisol 28.8 Vasopressor support to keep MAP greater than 65 --History of A-fib On Eliquis and amiodarone at home --History of hypertension On metoprolol at home --Prolonged QTc QTc 513 Avoid QT prolonging medications --S/p AVR Bioprosthetic aortic valve, history of mitral valve repair with moderate regurg Respiratory - -- VDRF Postop Continue with ventilatory support Keep RASS -1 Daily sedation holidays and SBT's Chlorhexidine mouthwash --Patient had difficult intubation on 04/28/2024 when they took him to the OR Only 6.5 tube was able to be placed Apparently he had started prior to going to the OR Did have good air leak at bedside on 04/29/2024 GI - -- GERD Continue with pantoprazole RENAL/LYTES - -- GUILHERME on CKD Likely secondary to shock/hypotension Monitor BUNs/creatinine Avoid nephrotoxic medications -- S/p HAGMA Likely sec to lactic acidosis Monitor ENDO - -- ICU hypoglycemia protocol HEME - -- Acute blood loss anemia As per Dr. Aguayo, there was oozing of blood because of complicated cholecystectomy S/p 3 units of PRBC on 04/28/2024, monitor H&H ID - -- History of cholecystitis with persistent leukocytosis S/p cholecystectomy 04/28/2024 Was on ciprofloxacin Flagyl and cefepime added 04/29/2024 --Prophylaxis VTE: IPC GI: Pantoprazole Lines: Peripheral Diet: N.p.o. Plan: In/out: +3.1 L, urine output 1795 AB.47/29/72 on PEEP of 5, 30% There has been drop in H&H. He is also +3.1 L, it could be dilutional. ARLEY drain amount has been decreasing significantly compared to yesterday. Monitor H&H by repeating it at noon. Given the elevated WBC count I would recommend to continue with cefepime and Flagyl for the time being. There is good cuff leak today. Trial of extubation Was discussed with surgery. Family were updated I have personally spent 38 minutes of critical care time in the direct management of this patient. This is a life/limb threatening event. This includes time spent evaluating patient, direct bedside care, chart review, placing orders, interpretation of diagnostic studies, discussion with consultants, patient, and family members, as well as other required patient management activities. This time is exclusive of all separately billable procedures, and teaching time and separate from and in addition to any other critical care service time. Admission and Anticipated Discharge Date Admission Date: April 28, 2024 Subjective Patient seen and examined at bedside. No acute distress, notable since overnight He was on 100 of intermittent of propofol. He was RASS -1 Answering all the questions appropriately. Denied any headache, no chest pain, no shortness of breath Did complain of some abdominal discomfort. Was on 0.04 of Levophed with MAP in the mid 60s Review of Systems 2 Review of Systems: All systems reviewed & are unremarkable except as noted in Subjective Physical Exam 2 Physical Exam: Constitutional: No acute distress HEENT: PERRLA Respiratory system: Decreased air entry bilaterally, no wheeze, no rhonchi, mild crackles bilaterally CVS: S1-S2 positive, no murmurs or gallops, bradycardia Abdomen: Soft, diffuse abdominal tenderness, nondistended, positive bowel sounds x4, ARLEY still drain in place draining sanguinous fluid but decreasing in amount Extremities: +1 pulses bilaterally radialis/ dorsalis pedis, no cyanosis, no edema, cold extremities Neuro: RASS -1, answering all the questions appropriately, moving all extremities Psych: Normal mood and affect G/U: Positive Fry Skin: no rashes, warm and dry Lymphatic: no cervical or axillary lymphadenopathy Results & Data Results & Data Vital Signs (Past 12 Hours) Vital Signs Pulse Resp BP Pulse Ox FiO2 04/30/24 08:00 30 04/30/24 08:00 59 L 115/38 L 04/30/24 07:21 61 16 99 30 04/30/24 06:03 56 L 16 97 30 04/30/24 06:00 128/54 L 04/30/24 06:00 128/54 L 04/30/24 05:45 56 L 16 97 04/30/24 05:39 60 17 99 04/30/24 05:30 130/56 L 04/30/24 05:24 55 L 16 98 04/30/24 05:00 56 L 20 97 30 04/30/24 05:00 128/56 L 04/30/24 04:33 57 L 20 97 04/30/24 04:30 136/57 L 04/30/24 04:21 56 L 20 97 04/30/24 04:03 56 L 20 97 30 04/30/24 04:00 125/57 L 04/30/24 04:00 125/57 L 04/30/24 04:00 125/57 L 04/30/24 04:00 125/57 L 04/30/24 04:00 30 04/30/24 04:00 57 L 126/39 L 04/30/24 03:55 56 L 20 97 30 04/30/24 03:54 57 L 20 97 04/30/24 03:33 57 L 20 97 04/30/24 03:30 132/57 L 04/30/24 03:30 132/57 L 04/30/24 03:27 57 L 20 97 04/30/24 03:06 57 L 20 97 30 04/30/24 03:00 132/58 L 04/30/24 03:00 132/58 L 04/30/24 02:48 57 L 20 97 04/30/24 02:39 57 L 20 97 04/30/24 02:30 133/57 L 04/30/24 02:30 133/57 L 04/30/24 02:30 133/57 L 04/30/24 02:15 58 L 20 97 04/30/24 02:03 57 L 20 97 30 04/30/24 02:00 132/57 L 04/30/24 02:00 132/57 L 04/30/24 02:00 132/57 L 04/30/24 01:54 57 L 20 97 04/30/24 01:42 57 L 20 97 04/30/24 01:38 57 L 04/30/24 01:24 57 L 20 97 30 04/30/24 01:00 128/55 L 04/30/24 00:48 57 L 20 97 04/30/24 00:35 57 L 20 97 04/30/24 00:30 129/55 L 04/30/24 00:05 57 L 20 97 30 04/30/24 00:00 57 L 114/38 L 04/30/24 00:00 30 04/29/24 23:41 57 L 20 98 04/29/24 23:30 128/56 L Laboratory Results 04/30/24 04:17 04/30/24 04:17 Coding Level of Care Code 11929 CRITICAL CARE 1ST 30-74M Diagnoses Shock circulatory R57.9 Acute blood loss anemia D62 Status post laparoscopic cholecystectomy Z90.49 Paroxysmal atrial fibrillation I48.0 CKD (chronic kidney disease) N18.9 GERD (gastroesophageal reflux disease) K21.9 Sleep apnea G47.30 Acquired deviated nasal septum J34.2
[2024-04-30 12:39] LABS: Hemoglobin 6.4 g/dl (14.0-18.0)
[2024-04-30] MEDS ORDERED: SODIUM CHLORIDE 0.9% 250 ML IV PRN (13:09)
[2024-04-30 13:40] LABS: Hematocrit (blood only) 23.8 % (42.0-52.0); Hemoglobin 8.1 g/dl (14.0-18.0)
--- NOTE | 2024-05-01 05:09 | Surgery Progress Note ---
Date of Service May 01, 2024 Assessment & Plan (1) Status post laparoscopic cholecystectomy: (2) Acute blood loss anemia: Plan: Patient is status post laparoscopic cholecystectomy on 04/28/2024 (postop day #3); he is also status post exploratory laparoscopy and evacuation of intra- abdominal bleed on 04/29/2024 (postop day #2) Patient has been successfully extubated and his respiratory status appears stable at this time as he is in no respiratory distress. Urine output remains acceptable Continue ARLEY drain to bulb suction Continue intravenous fluids Acute blood loss anemia as notedpatient has received multiple units of packed red blood cells; will check labs this morning when available If patient remains hemodynamically stable will attempt to mobilize/increase activity Provide patient with incentive spirometer Additional recommendations will be forthcoming Admission and Anticipated Discharge Date Admission Date: April 28, 2024 Supervising Physician Co-Signing Physician Notes Third postoperative day status post laparoscopic cholecystectomy takeback for bleeding laparoscopic abdominal washout and control bleeding (nonspecific site) Has been out of bed yesterday without any issues Patient is alert coherent resting comfortable no distress been out of bed yesterday denies any abdominal discomfort denies any flatus NG tube with no drainage Oropharyngeal area moist Abdomen completely benign Teodoro drainage minimal drainage No pedal edema Laboratory this morning hemoglobin down to 7.2 yesterday was 8.0 white count still elevated at 18.02 with left shift present creatinine nearly at baseline preop Intraoperative cultures gallbladder likely Enterococcus Expected drop in hemoglobin may be mobilization of fluid certainly his blood pressure and drainage does not show any significant drop or reflect the hemoglobin Will DC the NG tube will start him on ice chips water sips and p.o. meds hold off of diet until GI function released passing flatus returns Subjective Patient is resting comfortably in bed at the present time. He denies any significant abdominal pain. He denies any nausea or vomiting. His only complaint at this time is sore throat. I discussed with the nurse attending the patient and the patient has remained hemodynamically stable throughout the night. She notes that he has been afebrile and does not report any acute concerns. Physical Exam Respiratory: Breath sounds are present bilaterally with slight decreases at the bases. Gastrointestinal (Abdomen): Laparoscopic incisions are clean, dry, and intact. Abdomen is soft and nontender. There is no distention or rigidity. ARLEY drain has some sanguinous drainage and has drained 20 cc over the night. Results & Data Vital Signs (Past 12 Hours) Vital Signs Pulse Resp BP Pulse Ox O2 Del Method 05/01/24 04:00 69 104/50 L 05/01/24 02:00 121/57 L 05/01/24 02:00 74 16 97 05/01/24 01:33 76 14 97 05/01/24 01:30 132/57 L 05/01/24 01:30 132/57 L 05/01/24 01:30 132/57 L 05/01/24 01:18 77 10 L 96 05/01/24 01:00 77 15 97 05/01/24 00:33 76 19 98 05/01/24 00:30 127/59 L 05/01/24 00:30 127/59 L 05/01/24 00:30 127/59 L 05/01/24 00:00 125/60 05/01/24 00:00 125/60 05/01/24 00:00 77 17 97 05/01/24 00:00 77 05/01/24 00:00 78 150/47 H 04/30/24 23:30 126/59 L 04/30/24 23:30 126/59 L 04/30/24 23:21 81 18 92 04/30/24 23:09 78 15 90 04/30/24 22:42 81 10 L 90 04/30/24 22:30 125/58 L 04/30/24 22:30 125/58 L 04/30/24 22:30 125/58 L 04/30/24 22:30 125/58 L 04/30/24 22:27 78 12 92 04/30/24 22:18 79 16 91 04/30/24 21:48 81 14 94 04/30/24 21:30 119/55 L 04/30/24 21:30 Room Air 04/30/24 21:12 80 18 91 04/30/24 21:03 79 15 92 04/30/24 21:00 133/57 L 04/30/24 21:00 133/57 L 04/30/24 20:39 79 16 94 04/30/24 20:30 132/55 L 04/30/24 20:18 80 17 94 04/30/24 20:03 84 20 93 04/30/24 20:00 129/58 L 04/30/24 20:00 129/58 L 04/30/24 20:00 129/58 L 04/30/24 20:00 129/58 L 04/30/24 20:00 80 149/44 H 04/30/24 19:48 80 14 92 04/30/24 19:30 130/60 04/30/24 19:30 80 7 L 92 04/30/24 19:21 80 8 L 93 04/30/24 19:00 126/59 L 04/30/24 17:45 76 7 L 93 04/30/24 17:36 76 8 L 92 04/30/24 17:30 126/60 PG Care Time/CCT Total # of Minutes Spent Total Time Spent with Patient: Total time spent is greater than 50% in coordination of care (as documented) at patient's floor/unit and/or counseling patient: Coding Level of Care Code 08008 Post Operative Follow-Up Diagnoses Status post laparoscopic cholecystectomy Z90.49 Acute blood loss anemia D62
[2024-05-01 05:30] LABS: Hematocrit (blood only) 21.4 % (42.0-52.0); Hemoglobin 7.2 g/dl (14.0-18.0); Mean Corpuscular Hemoglobin 31.3 pg (25.0-34.0); Mean Corpuscular Hgb Conc 33.6 g/dL (32.0-36.0); Mean Platelet Volume 10.1 fL (9.4-12.4); Platelet Count 136 K/uL (130-400); RDW Coefficient of Variation 14.7 % (11.5-14.5); RDW Standard Deviation 49.3 fL (36.4-46.3); White Blood Count 18.02 K/ul (4.8-10.8)
[2024-05-01 05:35] LABS: BUN Creatinine Ratio 21.1 (10-20); Est GFR (African American) 73.5 ml/min; Est GFR (Non-African American) 63.4 ml/min; Magnesium 2.5 mg/dl (1.7-2.4); Phosphorus 2.9 mg/dl (2.5-4.9); Potassium 4.3 mmol/L (3.5-5.1)
[2024-05-01 06:00] LABS: Basophils # (auto) 0.01 K/uL (0.00-0.20); Basophils % (auto) 0.1 %; Eosinophils # (auto) 0.01 K/uL (0.00-0.50); Eosinophils % (auto) 0.1 %; Immature Granulocytes # (auto) 0.25 K/uL (0.01-0.20); Immature Granulocytes % (auto) 1.4 %; Lymphocytes # (auto) 0.82 K/uL (1.20-3.40); Lymphocytes % (auto) 4.6 %; Monocytes # (auto) 0.89 K/uL (0.11-0.59); Monocytes % (auto) 4.9 %; Neutrophils # (auto) 16.04 K/uL (1.40-6.50); Neutrophils % (auto) 88.9 %; RBC Morphology Unremarkable
--- NOTE | 2024-05-01 10:56 | Critical Care Progress Note ---
Date of Service May 01, 2024 Assessment & Plan (1) Shock circulatory: (2) Acute blood loss anemia: (3) Status post laparoscopic cholecystectomy: (4) Paroxysmal atrial fibrillation: (5) CKD (chronic kidney disease): (6) GERD (gastroesophageal reflux disease): (7) Sleep apnea: (8) Acquired deviated nasal septum: Plan Reason Critically Ill: 74-year-old male past medical history of A-fib, on Eliquis and amiodarone, GERD, DANIEL, CKD came to the hospital for cholecystitis a nd cholecystectomy. Patient was found to be hypotensive on the floor. Sent to the ICU for further management Echo 04/08/2024: EF 55 to 60%, no regional wall motion abnormalities. Neuro - [facility] ICU: Negative Cardiac - -- Shock Likely hemorrhagic, resolved Random cortisol 28.8 Vasopressor support to keep MAP greater than 65. De-escalate hydrocortisone to 50 mg daily and likely discontinue in the next 1 to 2 days. --History of A-fib On Eliquis and amiodarone at home. Anticoagulation currently on hold. Restart when surgery clears for anticoagulation. --History of hypertension On metoprolol at home --Prolonged QTc QTc 513 Avoid QT prolonging medications --S/p AVR Bioprosthetic aortic valve, history of mitral valve repair with moderate regurg Respiratory - Saturating well on room air. Status postextubation yesterday. GI - -- GERD Continue with pantoprazole RENAL/LYTES - -- GUILHERME on CKD GUILHERME resolved. Likely secondary to septic/hemorrhagic shock ENDO - -- ICU hypoglycemia protocol HEME - -- Acute blood loss anemia S/p 3 units of PRBC on 04/28/2024, monitor H&H. Coags and platelets stable. ID - -- History of cholecystitis with persistent leukocytosis S/p cholecystectomy 04/28/2024 Was on ciprofloxacin Flagyl and cefepime added 04/29/2024 --Prophylaxis VTE: SCDs. GI: Pantoprazole Lines: Peripheral Diet: Clear liquids per surgery. Advance as tolerated. Dispo: Transition to PCU status. Hospitalist consult placed. ICU services to sign off. Admission and Anticipated Discharge Date Admission Date: April 28, 2024 Subjective Patient seen and examined. He is in good spirits. Tolerating liquid diet. NG tube out. Off of vasoactive medications since yesterday. Denies any major complaints. Review of Systems Review of Systems: All systems reviewed & are unremarkable except as noted in HPI & below Physical Exam Physical Exam: Constitutional: No acute distress HEENT: PERRLA Respiratory system: Decreased air entry bilaterally, no wheeze, no rhonchi, mild crackles bilaterally CVS: S1-S2 positive, no murmurs or gallops, bradycardia Abdomen: Soft, diffuse abdominal tenderness, nondistended, positive bowel sounds x4, ARLEY still drain in place draining sanguinous fluid but decreasing in amount Extremities: +1 pulses bilaterally radialis/ dorsalis pedis, no cyanosis, no edema, cold extremities Neuro: No acute focal deficits. Psych: Normal mood and affect G/U: Positive Fry Skin: no rashes, warm and dry Lymphatic: no cervical or axillary lymphadenopathy Results & Data Results & Data Vital Signs (Past 12 Hours) Vital Signs Pulse Resp BP Pulse Ox 05/01/24 08:12 71 16 90 05/01/24 08:06 72 14 91 05/01/24 08:00 139/64 05/01/24 08:00 139/64 05/01/24 07:45 72 24 92 05/01/24 07:42 73 17 92 05/01/24 07:30 136/59 L 05/01/24 07:30 72 12 90 05/01/24 07:27 71 10 L 91 05/01/24 07:12 70 12 91 05/01/24 07:00 128/57 L 05/01/24 06:54 70 13 90 05/01/24 06:51 69 12 92 05/01/24 06:30 72 14 93 05/01/24 06:24 69 9 L 92 05/01/24 06:06 70 16 92 05/01/24 06:00 125/58 L 05/01/24 05:57 70 16 92 05/01/24 05:54 71 11 L 92 05/01/24 05:42 75 18 93 05/01/24 05:33 73 12 90 05/01/24 05:33 128/61 05/01/24 05:33 128/61 05/01/24 05:33 128/61 05/01/24 05:24 75 17 93 05/01/24 05:12 71 10 L 96 05/01/24 05:00 123/61 05/01/24 04:45 70 10 L 97 05/01/24 04:42 70 13 97 05/01/24 04:39 69 13 97 05/01/24 04:30 129/55 L 05/01/24 04:18 69 10 L 97 05/01/24 04:15 69 9 L 97 05/01/24 04:03 69 9 L 98 05/01/24 04:00 123/55 L 05/01/24 04:00 123/55 L 05/01/24 04:00 69 104/50 L 05/01/24 03:51 71 17 98 05/01/24 03:30 112/54 L 05/01/24 03:18 71 10 L 99 05/01/24 03:06 72 10 L 98 05/01/24 03:00 127/56 L 05/01/24 03:00 127/56 L 05/01/24 02:48 72 13 98 05/01/24 02:36 73 8 L 97 05/01/24 02:30 128/54 L 05/01/24 02:30 128/54 L 05/01/24 02:30 128/54 L 05/01/24 02:27 73 9 L 96 05/01/24 02:18 74 9 L 98 05/01/24 02:00 121/57 L 05/01/24 02:00 74 16 97 05/01/24 01:33 76 14 97 05/01/24 01:30 132/57 L 05/01/24 01:30 132/57 L 05/01/24 01:30 132/57 L 05/01/24 01:18 77 10 L 96 05/01/24 01:00 77 15 97 05/01/24 00:33 76 19 98 05/01/24 00:30 127/59 L 05/01/24 00:30 127/59 L 05/01/24 00:30 127/59 L 05/01/24 00:00 125/60 05/01/24 00:00 125/60 05/01/24 00:00 77 17 97 05/01/24 00:00 77 05/01/24 00:00 78 150/47 H 04/30/24 23:30 126/59 L 04/30/24 23:30 126/59 L 04/30/24 23:21 81 18 92 04/30/24 23:09 78 15 90 Coding Level of Care Code 87123 SUB INP/OBS CARE 2/35MIN Diagnoses Shock circulatory R57.9 Acute blood loss anemia D62 Status post laparoscopic cholecystectomy Z90.49 Paroxysmal atrial fibrillation I48.0 CKD (chronic kidney disease) N18.9 GERD (gastroesophageal reflux disease) K21.9 Sleep apnea G47.30 Acquired deviated nasal septum J34.2
[2024-05-01 11:30] LABS: Hematocrit (blood only) 22.5 % (42.0-52.0); Hemoglobin 7.5 g/dl (14.0-18.0)
--- NOTE | 2024-05-01 12:04 | Electrocardiogram Report ---
Test Reason : Blood Pressure : / mmHG Vent. Rate : 052 BPM Atrial Rate : 039 BPM P-R Int : 288 ms QRS Dur : 110 ms QT Int : 592 ms P-R-T Axes : 000 -34 049 degrees QTc Int : 550 ms Sinus bradycardia with 1st degree A-V block Left axis deviation Prolonged QT Abnormal ECG When compared with ECG of 28-APR-2024 14:28, No significant change Confirmed by Chano Segovia ([id number] on 05/01/2024 12:04:28 PM Referred By: Rex Stoner Confirmed By:Chano Segovia
[2024-05-01] MEDS: DAPTOmycin 500 MG in SYRINGE 0 ML IV SCH (12:13)
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
[2024-05-01] MEDS: AMIODARONE 200 MG TAB PO ONE (17:12)
[2024-05-01] MEDS: HYDROCORTISONE SOD 25 MG in SYRINGE 0 ML IV SCH (21:32)
[2024-05-02 06:51] LABS: Hematocrit (blood only) 20.8 % (42.0-52.0); Hemoglobin 6.8 g/dl (14.0-18.0); Mean Corpuscular Hemoglobin 30.6 pg (25.0-34.0); Mean Corpuscular Hgb Conc 32.7 g/dL (32.0-36.0); Mean Corpuscular Volume 93.7 fL (80.0-100.0); Mean Platelet Volume 9.3 fL (9.4-12.4); Platelet Count 128 K/uL (130-400); RDW Coefficient of Variation 14.6 % (11.5-14.5); RDW Standard Deviation 49.3 fL (36.4-46.3); Red Blood Count 2.22 M/uL (4.70-6.10); White Blood Count 9.27 K/ul (4.8-10.8)
[2024-05-02 07:06] LABS: Basophils # (auto) 0.01 K/uL (0.00-0.20); Basophils % (auto) 0.1 %; Immature Granulocytes # (auto) 0.08 K/uL (0.01-0.20); Immature Granulocytes % (auto) 0.9 %; Lymphocytes # (auto) 0.94 K/uL (1.20-3.40); Lymphocytes % (auto) 10.1 %; Monocytes # (auto) 0.75 K/uL (0.11-0.59); Monocytes % (auto) 8.1 %; Neutrophils # (auto) 7.49 K/uL (1.40-6.50); Neutrophils % (auto) 80.8 %; Poikilocytosis Present; Polychromasia 1+
[2024-05-02 07:11] LABS: Prothrombin Time 11.3 Seconds (9.0-12.0)
[2024-05-02 07:12] LABS: Albumin Globulin Ratio 1.8 (0.9-2); Albumin Level 2.8 gm/dl (3.4-5.0); BUN Creatinine Ratio 20.4 (10-20); Bilirubin,Total 0.8 mg/dl (0.2-1.0); Calcium 7.6 mg/dl (8.6-10.3); Creatinine Clr Calc Pharmacy 92.1 ml/min; Est GFR (African American) 88.3 ml/min; Est GFR (Non-African American) 76.2 ml/min; Globulin 1.6 gm/dl (2.5-4.0); Magnesium 2.2 mg/dl (1.7-2.4); Potassium 3.5 mmol/L (3.5-5.1); Total Protein 4.4 gm/dl (6.0-8.3)
[2024-05-02] MEDS ORDERED: SODIUM CHLORIDE 0.9% 250 ML IV PRN (07:20)
[2024-05-02] MEDS: AMIODARONE 200 MG TAB PO SCH (08:29)
--- NOTE | 2024-05-02 08:39 | Surgery Progress Note ---
Date of Service May 02, 2024 Assessment & Plan (1) Status post laparoscopic cholecystectomy: Plan: pt s/p lap dolores with takeback for post op bleeding s/p dx lap & hematoma evacuation today wbc 9. Hbg downtrend to 6.8 (7.5). Cr improving 0.9. vitals are stable on cefepime/flagyl 1u PRBC ordered today. recommend pt have assistance with ambulating and getting out of chair/bed will allow diet advancement d/c martell catheter esa drain sangenous, 175cc over last 24 hrs appreciate hospitalist assistance with patient pt seen/examined with dr. ruelas Admission and Anticipated Discharge Date Admission Date: April 28, 2024 Subjective Patient says he is feeling better. Tolerating liquids, no n/v. + flatus, no BM yet. Denies lightheadedness. Physical Exam Physical Exam: awake/alert, no distress, sitting up in chair eating bfast Respiratory: normal respiratory effort Gastrointestinal (Abdomen): Inspection/Auscultation: + abdominal surgical incision (c/d/i) and + abdominal surgical drain present (sangeneous) Percussion/Palpation: abdomen soft Results & Data Vital Signs (Past 12 Hours) Vital Signs Temp Pulse Pulse Resp BP Pulse Ox O2 Del Method 05/02/24 04:02 98.1 F 67 12 127/60 96 CPAP 05/01/24 22:53 69 05/01/24 22:40 98.1 F 70 14 130/62 97 CPAP 05/01/24 21:44 Room Air PG Care Time/CCT Total # of Minutes Spent Total Time Spent with Patient: Total time spent is greater than 50% in coordination of care (as documented) at patient's floor/unit and/or counseling patient: Coding Level of Care Code 52689 Post Operative Follow-Up Diagnoses Status post laparoscopic cholecystectomy Z90.49
[2024-05-02] MEDS: POLYETHYLENE (MIRALAX) 17 GM PACK PO STA (08:52)
[2024-05-02] MEDS ORDERED: HYDROCORTISONE SOD 50 MG in SYRINGE 0 ML IV SCH (09:00)
--- NOTE | 2024-05-02 11:45 | Hospitalist Progress Note ---
Date of Service May 02, 2024 Assessment & Plan (1) Acute blood loss anemia: Plan: -Blood loss following cholecystectomy, Hemoglobin 6.8 today -Has so far received a total of 4 units of blood Monitor daily CBC, transfuse as needed Will continue hold Eliquis until general surgery is comfortable from a bleeding perspective Continue bilateral SCDs for DVT prophylaxis -Continue to monitor H&H (2) Shock circulatory: Plan: Hemorrhagic shock, now resolved (3) Status post laparoscopic cholecystectomy: Plan: Status post lap cholecystectomy On 04/28/2024 Complicated by postop bleeding and hematoma, now status post hematoma evacuation Hemoglobin 6.8 today, will transfuse 1 unit of blood. Advance diet as tolerated ARLEY drain with scant serosanguineous output Continue Flagyl, cefepime, daptomycin for now (4) Acute kidney injury: Plan: Resolved Avoid nephrotoxic agents, monitor daily renal function electrolytes (5) Fry catheter in place: Plan: Fry catheter was placed prior to laparoscopic cholecystectomy on 04/28/2024, has remained in place while in the ICU Currently draining clear, yellow urine Will continue overnight, if stable tomorrow can attempt voiding trial (6) Paroxysmal atrial fibrillation: Plan: Currently in normal sinus rhythm Eliquis has been on hold prior to procedure, continue to hold for now until general surgery is comfortable from bleeding perspective Will resume patient's amiodarone now, and will start his normal MWF dosing tomorrow (05/02/2024) Will continue to hold metoprolol for now to prevent hypotension Plan Continue hospitalization Full code Admission and Anticipated Discharge Date Admission Date: April 28, 2024 Subjective Patient seen and examined, sitting up in the chair denies any new complaints. Review of Systems Review of Systems: All systems reviewed are negative, apart from the ones contained in the history. Physical Exam Physical Exam: The patient is awake, alert and oriented 3, well developed and well nourished, normocephalic and atraumatic, lying in bed and in no acute distress. HEENT--PERRL, EOMI, mucous membranes and oropharynx mildly dry Neck--supple. No JVD. No bruits. Thyroid normal, trachea midline, no adenopathy. Heart--normal S1 and S2. No murmurs, rubs or gallops. Lungs--clear bilaterally, no respiratory distress, no accessory muscle use. Abdomen--normal bowel sounds and soft. Extremities--no cyanosis or clubbing. No edema. Dermatologic--normal skin turgor, normal color, no abnormal lymph nodes, no rash. Neurologic--cranial nerves II through XII grossly intact. Rheumatologic--normal range of motion. Psychiatric--normal affect. Results & Data Results & Data Vital Signs (Past 12 Hours) Vital Signs Temp Pulse Pulse Resp BP BP Pulse Ox 05/02/24 11:08 98.2 F 71 18 114/71 97 05/02/24 10:38 98.4 F 73 18 118/56 L 96 05/02/24 10:23 98.2 F 76 18 133/56 L 97 05/02/24 10:09 05/02/24 10:07 99.0 F 77 18 113/53 L 99 05/02/24 09:55 62 05/02/24 07:40 98.2 F 74 18 130/64 97 05/02/24 04:02 98.1 F 67 12 127/60 96 O2 Del Method 05/02/24 11:08 05/02/24 10:38 05/02/24 10:23 05/02/24 10:09 Room Air 05/02/24 10:07 05/02/24 09:55 05/02/24 07:40 Room Air 05/02/24 04:02 CPAP PG Care Time/CCT Total # of Minutes Spent Total Time Spent with Patient: Total time spent is greater than 50% in coordination of care (as documented) at patient's floor/unit and/or counseling patient: Coding Level of Care Code 12120 SUB INP/OBS CARE 2/35MIN Diagnoses Acute blood loss anemia D62 Shock circulatory R57.9 Status post laparoscopic cholecystectomy Z90.49 Acute kidney injury N17.[address] Z97.8 Paroxysmal atrial fibrillation I48.0 Time Spent (min) 35
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
[2024-05-03 07:02] LABS: Hematocrit (blood only) 21.6 % (42.0-52.0); Mean Corpuscular Hemoglobin 30.2 pg (25.0-34.0); Mean Corpuscular Hgb Conc 32.4 g/dL (32.0-36.0); Mean Corpuscular Volume 93.1 fL (80.0-100.0); Mean Platelet Volume 9.1 fL (9.4-12.4); Platelet Count 150 K/uL (130-400); RDW Coefficient of Variation 16.3 % (11.5-14.5); RDW Standard Deviation 53.3 fL (36.4-46.3); Red Blood Count 2.32 M/uL (4.70-6.10); White Blood Count 7.63 K/ul (4.8-10.8)
[2024-05-03 07:03] LABS: Eosinophils # (auto) 0.02 K/uL (0.00-0.50); Eosinophils % (auto) 0.3 %; Immature Granulocytes % (auto) 1.3 %; Lymphocytes # (auto) 1.13 K/uL (1.20-3.40); Lymphocytes % (auto) 14.8 %; Monocytes # (auto) 0.76 K/uL (0.11-0.59); Neutrophils # (auto) 5.62 K/uL (1.40-6.50); Neutrophils % (auto) 73.6 %; RBC Morphology Unremarkable
[2024-05-03 07:14] LABS: Albumin Globulin Ratio 1.6 (0.9-2); Albumin Level 2.6 gm/dl (3.4-5.0); BUN Creatinine Ratio 17.1 (10-20); Bilirubin,Total 0.7 mg/dl (0.2-1.0); Calcium 7.4 mg/dl (8.6-10.3); Est GFR (African American) 81.2 ml/min; Est GFR (Non-African American) 70.1 ml/min; Globulin 1.6 gm/dl (2.5-4.0); INR 1.1 (0.9-1.1); Magnesium 2.1 mg/dl (1.7-2.4); Potassium 3.4 mmol/L (3.5-5.1); Prothrombin Time 11.4 Seconds (9.0-12.0); Total Protein 4.2 gm/dl (6.0-8.3)
--- NOTE | 2024-05-03 11:54 | Hospitalist Progress Note ---
Date of Service May 03, 2024 Assessment & Plan (1) Acute blood loss anemia: Plan: -Hemoglobin 7 today Will continue hold Eliquis until general surgery is comfortable from a bleeding perspective Continue bilateral SCDs for DVT prophylaxis -Continue to monitor H&H (2) Status post laparoscopic cholecystectomy: Plan: Status post lap cholecystectomy On 04/28/2024 Complicated by postop bleeding and hematoma, now status post hematoma evacuation Intraoperative cultures growing Enterococcus Pansensitive Patient has been on IV cefepime daptomycin and Flagyl Upon discharge today, can de-escalate to p.o. Augmentin for 5-7 more days (3) Shock circulatory: Plan: Hemorrhagic shock, now resolved (4) Acute kidney injury: Plan: Resolved Avoid nephrotoxic agents, monitor daily renal function electrolytes (5) Fry catheter in place: Plan: Fry catheter was placed prior to laparoscopic cholecystectomy on 04/28/2024, has remained in place while in the ICU Currently draining clear, yellow urine Will continue overnight, if stable tomorrow can attempt voiding trial (6) Paroxysmal atrial fibrillation: Plan: Currently in normal sinus rhythm Eliquis has been on hold prior to procedure, continue to hold for now until general surgery is comfortable from bleeding perspective Will resume patient's amiodarone now, and will start his normal MWF dosing tomorrow (05/02/2024) Will continue to hold metoprolol for now to prevent hypotension Plan Stable from internal medicine if discharge is planned Full code Admission and Anticipated Discharge Date Admission Date: April 28, 2024 Subjective Patient seen and examined, sitting up in the chair denies any new complaints. Review of Systems Review of Systems: All systems reviewed are negative, apart from the ones contained in the history. Physical Exam Physical Exam: The patient is awake, alert and oriented 3, well developed and well nourished, normocephalic and atraumatic, lying in bed and in no acute distress. HEENT--PERRL, EOMI, mucous membranes and oropharynx mildly dry Neck--supple. No JVD. No bruits. Thyroid normal, trachea midline, no adenopathy. Heart--normal S1 and S2. No murmurs, rubs or gallops. Lungs--clear bilaterally, no respiratory distress, no accessory muscle use. Abdomen--normal bowel sounds and soft. Extremities--no cyanosis or clubbing. No edema. Dermatologic--normal skin turgor, normal color, no abnormal lymph nodes, no rash. Neurologic--cranial nerves II through XII grossly intact. Rheumatologic--normal range of motion. Psychiatric--normal affect. Results & Data Results & Data Vital Signs (Past 12 Hours) Vital Signs Temp Pulse Pulse Resp BP Pulse Ox O2 Del Method 05/03/24 11:00 98.2 F 78 18 136/67 97 Room Air 05/03/24 07:46 98.4 F 77 18 113/72 98 Room Air 05/03/24 07:45 Room Air 05/03/24 07:41 60 05/03/24 03:35 98.8 F 64 20 137/66 97 CPAP 05/03/24 00:00 74 PG Care Time/CCT Total # of Minutes Spent Total Time Spent with Patient: Total time spent is greater than 50% in coordination of care (as documented) at patient's floor/unit and/or counseling patient: Coding Level of Care Code 52293 SUB INP/OBS CARE 2/35MIN Diagnoses Acute blood loss anemia D62 Status post laparoscopic cholecystectomy Z90.49 Shock circulatory R57.9 Acute kidney injury N17.[address] Z97.8 Paroxysmal atrial fibrillation I48.0 Time Spent (min) 35
[2024-05-03] MEDS: POLYETHYLENE (MIRALAX) 17 GM PACK PO PRN (18:36)
[2024-05-04 08:39] LABS: Eosinophils # (auto) 0.13 K/uL (0.00-0.50); Eosinophils % (auto) 1.6 %; Hematocrit (blood only) 22.1 % (42.0-52.0); Hemoglobin 7.7 g/dl (14.0-18.0); Immature Granulocytes # (auto) 0.15 K/uL (0.01-0.20); Immature Granulocytes % (auto) 1.9 %; Lymphocytes % (auto) 16.2 %; Mean Corpuscular Hemoglobin 32.8 pg (25.0-34.0); Mean Corpuscular Hgb Conc 34.8 g/dL (32.0-36.0); Mean Platelet Volume 9.3 fL (9.4-12.4); Monocytes # (auto) 0.85 K/uL (0.11-0.59); Monocytes % (auto) 10.6 %; Neutrophils # (auto) 5.58 K/uL (1.40-6.50); Neutrophils % (auto) 69.7 %; Platelet Count 143 K/uL (130-400); RDW Coefficient of Variation 15.8 % (11.5-14.5); RDW Standard Deviation 51.8 fL (36.4-46.3); Red Blood Count 2.35 M/uL (4.70-6.10); White Blood Count 8.01 K/ul (4.8-10.8)
[2024-05-04 09:01] LABS: Polychromasia 1+
[2024-05-04 09:05] LABS: Prothrombin Time 11.3 Seconds (9.0-12.0)
[2024-05-04 09:07] LABS: Albumin Globulin Ratio 1.7 (0.9-2); Albumin Level 2.7 gm/dl (3.4-5.0); BUN Creatinine Ratio 17.7 (10-20); Bilirubin,Total 0.9 mg/dl (0.2-1.0); Calcium 7.6 mg/dl (8.6-10.3); Creatinine Clr Calc Pharmacy 95.2 ml/min; Est GFR (African American) 90.5 ml/min; Est GFR (Non-African American) 78.1 ml/min; Globulin 1.6 gm/dl (2.5-4.0); Potassium 3.5 mmol/L (3.5-5.1); Total Protein 4.3 gm/dl (6.0-8.3)
--- NOTE | 2024-05-04 09:13 | Surgery Progress Note ---
Date of Service May 04, 2024 Assessment & Plan (1) Status post laparoscopic cholecystectomy: Plan: pt doing well, tolerating diet H/H stable, WBC wnl , VSS May resume Eliquis per surgeon at discharge Stable for discharge today, to take 7 days of PO Augmentin (sent to pharmacy) appreciate hospitalist assist with patient throughout his stay Follow up in office next week with Dr. Ruelas, call with office with questions or concerns Pt seen and examined with Dr. ruelas Admission and Anticipated Discharge Date Admission Date: April 28, 2024 Subjective pt doing well no complaints Review of Systems Constitutional: no fever and no chills Respiratory: no dyspnea Cardiovascular: no chest pain Gastrointestinal: no abdominal pain, no nausea and no vomiting Musculoskeletal: no muscle weakness Physical Exam Constitutional: cooperative and comfortable; no acute distress Respiratory: normal respiratory effort and able to speak in complete sentences; no respiratory distress Cardiovascular: Rate/Rhythm: regular rate Gastrointestinal (Abdomen): Inspection/Auscultation: + abdominal surgical incision; abdomen not distended Percussion/Palpation: abdomen soft Results & Data Vital Signs (Past 12 Hours) Vital Signs Temp Pulse Pulse Resp BP Pulse Ox O2 Del Method 05/04/24 08:00 Room Air 05/04/24 08:00 97.7 F 70 16 144/68 H 96 Room Air 05/04/24 02:48 97.9 F 61 18 135/72 98 CPAP 05/04/24 00:00 67 05/03/24 22:50 97.9 F 63 18 143/66 H 97 CPAP 05/03/24 21:41 Room Air Results CBC w Diff Results: RBC 2.35 M/uL (4.70-6.10) L 05/04/24 WBC 8.01 K/ul (4.8-10.8) 05/04/24 Hgb 7.7 g/dl (14.0-18.0) L 05/04/24 Hct 22.1 % (42.0-52.0) L 05/04/24 MCV 94.0 fL (80.0-100.0) 05/04/24 MCH 32.8 pg (25.0-34.0) 05/04/24 MCHC 34.8 g/dL (32.0-36.0) 05/04/24 RDW Standard Deviation 51.8 fL (36.4-46.3) H 05/04/24 RDW Coefficient of Variation 15.8 % (11.5-14.5) H 05/04/24 Plt Count 143 K/uL (130-400) 05/04/24 MPV 9.3 fL (9.4-12.4) L 05/04/24 Neutrophils (%) (Auto) 69.7 % 05/04/24 Lymphocytes (%) (Auto) 16.2 % 05/04/24 Monocytes # (Auto) 0.85 K/uL (0.11-0.59) H 05/04/24 Eosinophils # (Auto) 0.13 K/uL (0.00-0.50) 05/04/24 Immature Granulocyte % (Auto) 1.9 % 05/04/24 Neutrophils # (Auto) 5.58 K/uL (1.40-6.50) 05/04/24 Lymphocytes # (Auto) 1.30 K/uL (1.20-3.40) 05/04/24 Monocytes # (Auto) 0.85 K/uL (0.11-0.59) H 05/04/24 Eosinophils # (Auto) 0.13 K/uL (0.00-0.50) 05/04/24 Basophils # (Auto) 0.00 K/uL (0.00-0.20) 05/04/24 Immature Granulocyte # (Auto) 0.15 K/uL (0.01-0.20) 4 Red Blood Cell Morphology Unremarkable 05/03/24 Polychromasia 1+ 05/04/24 Poikilocytosis Present 05/02/24 PG Care Time/CCT Total # of Minutes Spent Total Time Spent with Patient: Total time spent is greater than 50% in coordination of care (as documented) at patient's floor/unit and/or counseling patient: Coding Level of Care Code 85106 Post Operative Follow-Up Diagnoses Status post laparoscopic cholecystectomy Z90.49
[2024-05-04] MEDS: PANTOprazole 40 MG TAB PO SCH (10:26)
--- NOTE | 2024-05-04 14:11 | Hospitalist Progress Note ---
Date of Service May 04, 2024 Assessment & Plan (1) Acute blood loss anemia: Plan: -Stable hemoglobin following transfusion. I think Eliquis can be resumed comfortably Continue bilateral SCDs for DVT prophylaxis -Continue to monitor H&H (2) Status post laparoscopic cholecystectomy: Plan: Status post lap cholecystectomy On 04/28/2024 Complicated by postop bleeding and hematoma, now status post hematoma evacuation Intraoperative cultures growing Enterococcus Pansensitive Patient has been on IV cefepime daptomycin and Flagyl Upon discharge today, can de-escalate to p.o. Augmentin for 5-7 more days (3) Shock circulatory: Plan: Hemorrhagic shock, now resolved (4) Acute kidney injury: Plan: Resolved Avoid nephrotoxic agents, monitor daily renal function electrolytes (5) Fry catheter in place: Plan: Fry catheter was placed prior to laparoscopic cholecystectomy on 04/28/2024, has remained in place while in the ICU Currently draining clear, yellow urine (6) Paroxysmal atrial fibrillation: Plan: Currently in normal sinus rhythm I think it is safe to resume his Eliquis Plan Stable from internal medicine if discharge is planned Full code Admission and Anticipated Discharge Date Admission Date: April 28, 2024 Subjective Patient seen and examined, no new complaints Review of Systems Review of Systems: All systems reviewed are negative, apart from the ones contained in the history. Physical Exam Physical Exam: The patient is awake, alert and oriented 3, well developed and well nourished, normocephalic and atraumatic, lying in bed and in no acute distress. HEENT--PERRL, EOMI, mucous membranes and oropharynx mildly dry Neck--supple. No JVD. No bruits. Thyroid normal, trachea midline, no adenopathy. Heart--normal S1 and S2. No murmurs, rubs or gallops. Lungs--clear bilaterally, no respiratory distress, no accessory muscle use. Abdomen--normal bowel sounds and soft. Extremities--no cyanosis or clubbing. No edema. Dermatologic--normal skin turgor, normal color, no abnormal lymph nodes, no rash. Neurologic--cranial nerves II through XII grossly intact. Rheumatologic--normal range of motion. Psychiatric--normal affect. Results & Data Results & Data Vital Signs (Past 12 Hours) Vital Signs Temp Pulse Pulse Resp BP BP Pulse Ox 07/31/24 12:21 97.9 F 80 18 138/70 97 05/04/24 10:58 97.7 F 64 70 16 144/68 H 59/33 L 96 05/04/24 08:00 05/04/24 08:00 97.7 F 70 16 144/68 H 96 05/04/24 02:48 97.9 F 61 18 135/72 98 O2 Del Method 05/04/24 12:21 Room Air 05/04/24 10:58 05/04/24 08:00 Room Air 05/04/24 08:00 Room Air 05/04/24 02:48 CPAP PG Care Time/CCT Total # of Minutes Spent Total Time Spent with Patient: Total time spent is greater than 50% in coordination of care (as documented) at patient's floor/unit and/or counseling patient: Coding Level of Care Code 57635 SUB INP/OBS CARE 2/35MIN Diagnoses Acute blood loss anemia D62 Status post laparoscopic cholecystectomy Z90.49 Shock circulatory R57.9 Acute kidney injury N17.[address] Z97.8 Paroxysmal atrial fibrillation I48.0 Time Spent (min) 35
--- NOTE | 2024-05-05 15:42 | Discharge Summary ---
Date of Service May 05, 2024 Admission Exam (Per Admitting) Constitutional The patient is awake, alert and oriented 3, well developed and well nourished, normocephalic and atraumatic, lying in bed and in no acute distress. HEENT--PERRL, EOMI, mucous membranes and oropharynx mildly dry Neck--supple. No JVD. No bruits. Thyroid normal, trachea midline, no adenopathy. Heart--normal S1 and S2. No murmurs, rubs or gallops. Lungs--clear bilaterally, no respiratory distress, no accessory muscle use. Abdomen--normal bowel sounds and soft. Extremities--no cyanosis or clubbing. No edema. Dermatologic--normal skin turgor, normal color, no abnormal lymph nodes, no rash. Neurologic--cranial nerves II through XII grossly intact. Rheumatologic--normal range of motion. Psychiatric--normal affect. Discharge Data Consultations 04/28/24 12:37 Consult Hospitalist Routine 05/01/24 10:28 Consult Hospitalist Routine Procedures Performed Operation Date: 04/28/24 20:30 Actual Procedures p Laparascopic evaluation and evacuation of intrabdominal bleed(Not Applicable) - Rex Stoner MD, FACS s Laparascopic evaluation and evacuation of intrabdominal bleed - Rxe Stoner MD, FACS Hospital Course (1) Acute blood loss anemia: -Stable hemoglobin following transfusion. I think Eliquis can be resumed comfortably Continue bilateral SCDs for DVT prophylaxis -Continue to monitor H&H (2) Status post laparoscopic cholecystectomy: Status post lap cholecystectomy On 04/28/2024 Complicated by postop bleeding and hematoma, now status post hematoma evacuation Intraoperative cultures growing Enterococcus Pansensitive Patient has been on IV cefepime daptomycin and Flagyl Upon discharge today, can de-escalate to p.o. Augmentin for 5-7 more days (3) Shock circulatory: Hemorrhagic shock, now resolved (4) Acute kidney injury: Resolved Avoid nephrotoxic agents, monitor daily renal function electrolytes (5) Fry catheter in place: Fry catheter was placed prior to laparoscopic cholecystectomy on 04/28/2024, has remained in place while in the ICU Currently draining clear, yellow urine (6) Paroxysmal atrial fibrillation: Currently in normal sinus rhythm I think it is safe to resume his Eliquis Plan Stable from internal medicine if discharge is planned Full code Coding Level of Care Code 89746 INP/OBS DISCH >30 MIN Diagnoses Acute blood loss anemia D62 Status post laparoscopic cholecystectomy Z90.49 Shock circulatory R57.9 Acute kidney injury N17.[address] Z97.8 Paroxysmal atrial fibrillation I48.0 Time Spent (min) 35
== END 2024-05-04 14:27 | disposition home or self-care (01) | DRG 417 ==
LOC: ASU 07:12 → 2N 10:47 → 2S 14:42 → 1E 17:22 → 2E 05-01 18:35
DX: N18.9 Chronic kidney disease, unspecified; K21.9 Gastro-esophageal reflux disease without esophagitis; Z79.82 Long term (current) use of aspirin; R57.8 Other shock; I48.0 Paroxysmal atrial fibrillation; G47.33 Obstructive sleep apnea (adult) (pediatric); Z95.3 Presence of xenogenic heart valve; K91.840 Postprocedural hemorrhage of a digestive system organ or structure following a digestive system procedure; K91.870 Postprocedural hematoma of a digestive system organ or structure following a digestive system procedure; Z88.8 Allergy status to other drugs, medicaments and biological substances; D62 Acute posthemorrhagic anemia; Z79.01 Long term (current) use of anticoagulants; J96.90 Respiratory failure, unspecified, unspecified whether with hypoxia or hypercapnia; I95.9 Hypotension, unspecified; I12.9 Hypertensive chronic kidney disease with stage 1 through stage 4 chronic kidney disease, or unspecified chronic kidney disease; Z79.899 Other long term (current) drug therapy; N17.9 Acute kidney failure, unspecified; E87.20 Acidosis, unspecified; K81.0 Acute cholecystitis; E03.9 Hypothyroidism, unspecified; I08.0 Rheumatic disorders of both mitral and aortic valves; I25.10 Atherosclerotic heart disease of native coronary artery without angina pectoris; Z86.16 Personal history of COVID-19; F17.290 Nicotine dependence, other tobacco product, uncomplicated; Z88.0 Allergy status to penicillin